=== PATIENT | male | born 1930 | race Caucasian/White ===

== ENCOUNTER 2016-09-17 23:03 | Observation (INO) | payer MEDICARE, BC ==
[~2016-09-17] VITALS: Ht 182.9 cm; Wt 85.0 kg
[~2016-09-17 23:03] MED LIST: AZOP1SUS EACH EYE; FISHCAP4 PO; LIPI20TA PO; MACR100C2 PO; NITR0.4S SL; OCUVTAB PO; SUCR1TAB PO
[2016-09-17 23:15] VITALS: BP 114/61; PULSE 79; RESP 16; TEMP 99.3; O2SAT 93
--- NOTE | 2016-09-17 23:38 | PD ---
HPI Chief Complaint: General Weakness Time Seen by Provider: 23:08 Travel History International Travel<30 days: No Contact w/Intl Traveler<30days: No Traveled to known affect area: No History of Present Illness HPI The patient is an 86 year old female who presents to the [facility] emergency department with a history of beginning to not feel well yesterday. The patient reports that he developed a productive cough that is gotten worse today, generalized weakness and fatigue. The patient reports that he just returned from a cruise. The cruise went to [place], however he never got off of the boat. The patient reports that he's had a diminished appetite today. He denies any vomiting or diarrhea. He denies having any chest pain, chest pressure, shortness of breath. The patient was attempting to get up to go to the bathroom when he fell because of weakness. The patient denies injuring himself. His had difficulty getting him up off of the ground, therefore she called ambulance services. The patient denies having any extremity pain associated with the fall. He denies hitting his head or losing consciousness. He denies having any neck pain or paresthesias. He denies having any new weakness of his extremities. The patient reports that he has a history of a neurogenic bladder and his will catheter him 3 times per week. She reports that she last 3 Days Ago. His Reports That He Had a Fever with a MAXIMUM TEMPERATURE of 101 Prior to Arrival. His Reports That She Did Call His Primary Care Physician, Dr. Vega Today and Was Given a Prescription for Ciprofloxacin. He Has Taken 2 Doses Today. The patient denies having any recent neck pain, chest pain, shortness of breath, abdominal pain, vomiting, diarrhea, new urinary symptoms, or new neurologic symptoms. [facility] Past Medical History Narrative Medical The patient's past medical history significant for coronary artery disease status post stent placement, history of bradycardia, history of glaucoma, mild obstructive sleep apnea, history of a trigger finger, history of prostate cancer , history of cataracts. Hx Anticoagulant Therapy: Yes Arthritis: Yes Heart Rhythm Problems: Yes (BRADYCARDIA) Cancer: Yes (PROSTATE) Cardiac Catheterization: Yes Cardiovascular Problems: Yes High Cholesterol: Yes Chemotherapy: No Congestive Heart Failure: No Coronary Artery Disease: Yes Diabetes: No Diminished Hearing: No Endocrine: No Gastrointestinal Disorders: No Glaucoma: Yes (BILATERAL) Hepatitis: No Hiatal Hernia: No Heparin Induced Thrombocytopen: No Hypertension: Yes Immune Disorder: No Implanted Vascular Access Dvce: Yes Medical other: Yes (ELEVATED CHOLESTEROL,ARTHRITIS) Neurologic: No Psychiatric: No Reproductive: No Respiratory: No Immunizations Current: Yes Myocardial Infarction: No Radiation Therapy: No Thyroid Disease: No Tetanus Vaccination: Unknown Influenza Vaccination: Yes Past Surgical History Narrative Surgical The patient's past surgical history is significant for prostate cryosurgery, right knee arthroscopy. Body Medical Devices: CARDIAC STENTS Coronary Artery Bypass Graft: No Coronary Stent: Yes (X 1) Eye Surgery: Yes (BILATERAL CATERACT EXT WITH LENSES, LASER LEFT EYE) Genitourinary Surgery: Yes (CRYO SX PROSTATE, TURP) Pacemaker: No Other Surgery: Yes Family History Family Myocardial Infarction: No Social History Alcohol Use: Yes (BEER PER DAY ) Tobacco Use: No Substance Use: No Allergies-Medications (Allergen,Severity, Reaction): Coded Allergies: Penicillin (Verified Allergy, Severe, Hives, 09/17/16) Morphine (Verified Allergy, Unknown, hallucination , confusion , 09/17/16) Uncoded Allergies: POLEDOCANOL (Allergy, Severe, ANAPHYLAXIS, 07/13/16) Reported Meds & Prescriptions Reported Meds & Active Scripts Active Macrobid (Nitrofurantoin Monoh/Nitrofur Macro) 100 Mg Cap 100 Mg PO BID 7 Days Reported Ocuvite (Multiple Vitamins W/ Minerals) 1 Tab 1 Tab PO DAILY Fish Oil + D3 (Fish Oil-Cholecalciferol) 1,200-1,000 Mg-Unit Cap 1 Cap PO DAILY Nitrostat (Nitroglycerin) 0.4 Mg Subl 0.4 Mg SL PRN PRN 1 TAB SL EVERY 5 MINS X 3 PRN CHEST PAIN Lipitor 20 Mg Tab (Atorvastatin Calcium) 20 Mg Tab 20 Mg PO HS Azopt (Brinzolamide) 1 % Elke 1 Drop EACH EYE BID Carafate 1 Gm Ta1 Gm 1 Gm Tab 1 Gm PO TIDAC Review of Systems Except as stated in HPI: all other systems reviewed are Neg General / Constitutional: Positive: Fever, Chills Eyes: No: Visual changes HENT: Positive: Congestion, No: Headaches Cardiovascular: No: Chest Pain or Discomfort, Dyspnea on exertion Respiratory: Positive: Cough, No: Shortness of Breath, Wheezing Gastrointestinal: Positive: Loss of Appetite, No: Nausea, Vomiting, Diarrhea, Abdominal Pain, Changes in Bowel Habits, Indigestion Genitourinary: Positive: Frequency, No: Urgency, Dysuria, Flank Pain Musculoskeletal: No: Pain Skin: No Rash Neurologic: Positive: Weakness (generalized weakness), No: Focal Abnormalities , Change in Mentation, Slurred Speech, Sensory Disturbance Psychiatric: No: Depression Endocrine: No: Polydipsia Hematologic/Lymphatic: No: Easy Bruising Physical Exam Narrative General: The patient is a well-developed well-nourished male in no acute distress.. Head and Neck exam: Head is normocephalic atraumatic. Eyes: Pupils are equal round and reactive to light. Nose: Midline septum with pink mucous membranes Mouth: Dentition unremarkable. Moist mucus membranes. Posterior oropharynx is not erythematous. No tonsillar hypertrophy. Uvula midline. Airway patent. Neck: No palpable lymphadenopathy. No nuchal rigidity. No thyromegaly. Cardiovascular: Regular rate and rhythm without murmurs, gallops, or rubs. Lungs: Clear to auscultation bilaterally. No wheezes, rhonchi, or rales. Abdomen: Soft, without tenderness to palpation in all 4 quadrants of the abdomen. No guarding, rebound, or rigidity. Normal bowel sounds are audible. Extremities: No clubbing, cyanosis, or edema. 2+ pulses in all 4 extremities. No calf tenderness on palpation. Back: No spinous process tenderness to palpation. No costovertebral angle tenderness to palpation. Neurologic Exam: Cranial nerves 2-12 were intact on exam. Strength is 5/5 in all 4 extremities. No sensory deficits noted. Skin Exam: No rash noted. Intact skin that is warm and dry. Data Data Last Documented VS Vital Signs Date Time Temp Pulse Resp B/P Pulse Ox O2 Delivery O2 Flow Rate FiO2 09/18/16 01:33 65 18 135/60 97 Nasal Cannula 2 09/17/16 23:15 99.3 Orders Electrocardiogram (09/17/16 23:27) Complete Blood Count With Diff (09/17/16 23:27) Comprehensive Metabolic Panel (09/17/16 23:27) Creatine Kinase (Cpk) (09/17/16 23:27) Ckmb (Isoenzyme) Profile (09/17/16 23:27) Troponin I (09/17/16 23:27) B-Type Natriuretic Peptide (09/17/16 23:27) Prothrombin Time / Inr (Pt) (09/17/16 23:27) Act Partial Throm Time (Ptt) (09/17/16 23:27) Blood Culture (09/17/16 23:27) Lipase (09/17/16 23:27) Urinalysis - C+S If Indicated (09/17/16 23:27) Magnesium (Mg) (09/17/16 23:27) Chest, Single Ap (09/17/16 23:27) Ct Brain W/O Iv Contrast(Rout) (09/17/16 23:27) Iv Access Insert/Monitor (09/17/16 23:27) Ecg Monitoring (09/17/16 23:27) Oximetry (09/17/16 23:27) Lactic Acid Sepsis Protocol (09/17/16 23:32) Sodium Chlorid 0.9% 500 Ml Inj (Ns 500 M (09/17/16 23:45) Urinary Catheter Insert/Apply (09/17/16 23:38) Admit Order (Ed Use Only) (09/18/16 02:08) Labs Laboratory Tests Test 09/18/16 00:05 White Blood Count 3.5 TH/MM3 Red Blood Count 3.60 MIL/MM3 Hemoglobin 11.9 GM/DL Hematocrit 34.9 % Mean Corpuscular Volume 96.8 FL Mean Corpuscular Hemoglobin 33.1 PG Mean Corpuscular Hemoglobin 34.2 % Concent Red Cell Distribution Width 13.5 % Platelet Count 135 TH/MM3 Mean Platelet Volume 7.8 FL Neutrophils (%) (Auto) 66.5 % Lymphocytes (%) (Auto) 18.7 % Monocytes (%) (Auto) 13.9 % Eosinophils (%) (Auto) 0.4 % Basophils (%) (Auto) 0.5 % Neutrophils # (Auto) 2.3 TH/MM3 Lymphocytes # (Auto) 0.6 TH/MM3 Monocytes # (Auto) 0.5 TH/MM3 Eosinophils # (Auto) 0.0 TH/MM3 Basophils # (Auto) 0.0 TH/MM3 CBC Comment DIFF FINAL Differential Comment Prothrombin Time 11.5 SEC Prothromb Time International 1.0 RATIO Ratio Activated Partial 30.3 SEC Thromboplast Time Urine Color YELLOW Urine Turbidity CLEAR Urine pH 5.5 Urine Specific [place] 1.013 Urine Protein NEG mg/dL Urine Glucose (UA) NEG mg/dL Urine Ketones NEG mg/dL Urine Occult Blood NEG Urine Nitrite NEG Urine Bilirubin NEG Urine Urobilinogen LESS THAN 2.0 MG/DL Urine Leukocyte Esterase SMALL Urine RBC 1 /hpf Urine WBC 8 /hpf Urine Squamous Epithelial <1 /hpf Cells Urine Bacteria RARE /hpf Microscopic Urinalysis Comment CULT NOT INDICATED Sodium Level 137 MEQ/L Potassium Level 3.7 MEQ/L Chloride Level 103 MEQ/L Carbon Dioxide Level 24.7 MEQ/L Anion Gap 9 MEQ/L Blood Urea Nitrogen 15 MG/DL Creatinine 1.16 MG/DL Estimat Glomerular Filtration 60 ML/MIN Rate Random Glucose 88 MG/DL Lactic Acid Level 0.7 mmol/L Calcium Level 8.3 MG/DL Magnesium Level 2.0 MG/DL Total Bilirubin 0.5 MG/DL Aspartate Amino Transf 12 U/L (AST/SGOT) Alanine Aminotransferase 18 U/L (ALT/SGPT) Alkaline Phosphatase 90 U/L Total Creatine Kinase 70 U/L Troponin I LESS THAN 0.02 NG/ML B-Type Natriuretic Peptide 68 PG/ML Total Protein 7.2 GM/DL Albumin 3.3 GM/DL Lipase 177 U/L [facility] Medical Decision Making Medical Screen Exam Complete: Yes Emergency Medical Condition: Yes Medical Record Reviewed: Yes Interpretation(s) Last Impressions Head CT [id number]/17/[id number] Signed Impressions: Service Date/Time: Saturday, September 17, 2016 23:39 - CONCLUSION: 1. No acute intracranial abnormality. 2. Mild chronic white matter changes. 3. Mild sinus disease. Luis Ley MD Chest X-Ray [id number]/17/[id number] Signed Impressions: Service Date/Time: Sunday, September 18, 2016 00:26 - CONCLUSION: No evidence of acute cardiopulmonary disease. Luis Ley MD Differential Diagnosis Bronchitis, versus sepsis, versus viral syndrome, versus pneumonia, versus urinary tract infection. Narrative Course During the course of the patients emergency department visit, the patients history, examination, and differential diagnosis were reviewed with the patient. The patient had IV access obtained and blood work sent for analysis. The patient was placed on a supervisor green end department with oximetry and blood pressure monitoring. An EKG was done on arrival. The patient's EKG shows a sinus rhythm with sinus arrhythmia, first-degree AV block noted. No acute ST segment elevation is noted. T waves are inverted in V1. The patient was provided normal saline a 500 mL bolus 1. Rocephin 1 g IV was given times one after pyuria was noted. The patients laboratory studies were reviewed and remarkable for a white count of 3.5, hemoglobin 11.9, platelets 135 with 13.9 monocytes, suggesting a viral syndrome which could be the cause of the patient's generalized weakness and recent cough, CMP is remarkable for a GFR 60, calcium 8.3, AST 12, cardiac enzymes are negative, BNP 68, albumin 3.3, lactic acid 0.7, PT 11.5, PTT 30.3, urinalysis shows small leukocyte esterase 8 wbc's rare bacteria, this a catheterized specimen, therefore the patient was treated with antibiotic. Radiology studies were reviewed and remarkable for a chest x-ray that showed no acute cardiopulmonary abnormality, CT scan of the brain shows no acute intracranial abnormality, mild chronic white matter changes, mild sinus disease. Given the patient's generalized weakness associated with an upper respiratory infection and urinary tract infection, the patient will be admitted for observation. The patients results were discussed with the patient, including the plan of care. I explained that further testing and/ or monitoring is indicated based on the patients history, examination, and/ or laboratory findings. Therefore, I recommended admission for additional evaluation. The patient expressed understanding and was agreeable with this plan. The patient was admitted to the hospital in stable condition and sent to a bed under the care of the [facility]ist service. Physician Communication Physician Communication The patient's case was discussed with Dr. Horton who did agree to admit the patient for further evaluation and treatment at this time. Diagnosis Primary Impression: Generalized weakness Additional Impressions: Urinary tract infection Qualified Code: T83.511A - Urinary tract infection associated with catheterization of urinary tract, unspecified indwelling urinary catheter type, initial encounter Bronchitis Admitting Information Admitting Physician Requests: Observation Mary Kay Choi MD Sep 17, 2016 23:38
[2016-09-17] MEDS ORDERED: SODIUM CHLORID 0.9% 500 ML INJ 500 ML IV ONE (23:45)
--- NOTE | 2016-09-17 23:53 | RADRPT ---
EXAM DATE/TIME: 09/17/2016 23:39 [facility] COMPARISON: No previous studies available for comparison. INDICATIONS : Weakness with altered mental status. RADIATION DOSE: 40.77 CTDIvol (mGy) MEDICAL HISTORY : Cardiovascular disease. Hypertension. Carcinoma, prostate. SURGICAL HISTORY : None. ENCOUNTER: Initial ACUITY: 1 day PAIN SCALE: 0/10 LOCATION: cranial TECHNIQUE: Multiple contiguous axial images were obtained of the head. Using automated exposure control and adj ustment of the mA and/or kV according to patient size, radiation dose was kept as low as reasonably a chievable to obtain optimal diagnostic quality images. FINDINGS: CEREBRUM: The ventricles are normal for age. No evidence of midline shift, mass lesion, hemorrhage or acute in farction. No extra-axial fluid collections are seen. There is mild diffuse low-attenuation in the pe riventricular white matter. POSTERIOR FOSSA: The cerebellum and brainstem are intact. The 4th ventricle is midline. The cerebellopontine angle i s unremarkable. EXTRACRANIAL: There is mild mucoperiosteal thickening of the visualized ethmoid air cells. SKULL: The calvaria is intact. No evidence of skull fracture. CONCLUSION: 1. No acute intracranial abnormality. 2. Mild chronic white matter changes. 3. Mild sinus disease. Luis Ley MD on September 17, 2016 at 23:51 Board Certified Radiologist. This report was verified electronically.
[2016-09-18] VITALS (12 sets, daily range): BP systolic 105–156; BP diastolic 56–75; PULSE 55–70; RESP 16–24; TEMP 98–101.6; O2SAT 96–98
[2016-09-18 00:26] LABS: AUTOMATED NEUTROPHIL # 2.3 TH/MM3 (1.8-7.7); BASOPHIL % 0.5 % (0.0-2.0); EOSINOPHIL % 0.4 % (0.0-4.0); HEMATOCRIT 34.9 % (39.0-51.0); HEMO FLAGS DIFF FINAL; LYMPH % 18.7 % (9.0-44.0); LYMPHOCYTE # 0.6 TH/MM3 (1.0-4.8); MEAN CELL VOLUME 96.8 FL (80.0-100.0); MEAN CORPUSCULAR HEMOGLOBIN 33.1 PG (27.0-34.0); MEAN CORPUSCULAR HGB CONC 34.2 % (32.0-36.0); MONO % 13.9 % (0.0-8.0); NEUT % 66.5 % (16.0-70.0); PLATELET COUNT 135 TH/MM3 (150-450); RED CELL DISTRIBUTION WIDTH 13.5 % (11.6-17.2); WHITE BLOOD COUNT 3.5 TH/MM3 (4.0-11.0)
[2016-09-18 00:28] LABS: BACTERIA, URINE RARE /hpf; BLOOD, URINE NEG (NEG); GLUCOSE,URINE NEG (NEG); KETONE, URINE NEG (NEG); NITRITE,URINE NEG (NEG); PH, URINE 5.5 (5.0-8.5); SQUAMOUS EPITHELIAL CELL URINE <1 /hpf (0-5); URINE COLOR YELLOW (YELLW/STRAW)
[2016-09-18 00:31] LABS: COMMENT (UR) CULT NOT INDICATED; CULTURE IF INDICATED CULT NOT INDICATED
[2016-09-18 00:34] LABS: ANION GAP 9 MEQ/L (5-15); AST (GOT) 12 U/L (15-37); BICARBONATE 24.7 MEQ/L (21.0-32.0); BLOOD UREA NITROGEN 15 MG/DL (7-18); CHLORIDE 103 MEQ/L (98-107); GLOMERULAR FILTRATION RATE 60 ML/MIN (>89); POTASSIUM 3.7 MEQ/L (3.5-5.1); SODIUM (NA) 137 MEQ/L (136-145)
[2016-09-18 00:38] LABS: APTT (PATIENT) 30.3 SEC (24.3-30.1); PROTHROMBIN TIME - PATIENT 11.5 SEC (9.8-11.6)
[2016-09-18 00:39] LABS: ALKALINE PHOSPHATASE 90 U/L (45-117); ALT (GPT) 18 U/L (12-78); TOTAL BILIRUBIN ADULT 0.5 MG/DL (0.2-1.0)
[2016-09-18 01:00] LABS: CREATINE KINASE 70 U/L (39-308)
--- NOTE | 2016-09-18 01:21 | RADRPT ---
EXAM DATE/TIME: 09/18/2016 00:26 [facility] COMPARISON: CHEST SINGLE AP, June 27, 2015, 10:15. INDICATIONS : Chest pain. MEDICAL HISTORY : Cardiovascular disease. SURGICAL HISTORY : Coronary artery stents. ENCOUNTER: Initial ACUITY: 1 day PAIN SCORE: 6/10 LOCATION: Bilateral chest FINDINGS: A single view of the chest demonstrates the lungs to be symmetrically aerated without evidence of mas s, infiltrate or effusion. The cardiomediastinal contours are unremarkable. Osseous structures are intact. CONCLUSION: No evidence of acute cardiopulmonary disease. Luis Lye MD on September 18, 2016 at 1:18 Board Certified Radiologist. This report was verified electronically.
[2016-09-18] MEDS ORDERED: cefTRIAXone INJ 1,000 MG in SODIUM CHLORIDE 0.9% INJ 100 ML IV ONE (02:30)
[2016-09-18] MEDS ORDERED: NALOXONE HCL 0.4 MG/ML AMP IV PRN (02:45)
[2016-09-18] MEDS ORDERED: SODIUM CHLORIDE 0.9% FLUSH 5 ML FLUSH FLUSH PRN (02:45)
[2016-09-18] MEDS ORDERED: CIPR500T2 PO (04:38)
--- NOTE | 2016-09-18 05:33 | HHI.HP ---
[facility] Deb Vega MD Admission Diagnosis Generalized weakness, UTI Diagnoses: Chief Complaint: UTI, weakness Travel History International Travel<30 Days: No Contact w/Intl Traveler <30 Da: No Traveled to Known Affected Are: No Sepsis Criteria SIRS Criteria (2 or more): Temp > 100.9 or < 96.8, WBC > 07325, < 4000 or > 10 % bands History of Present Illness History taken from patient and ED physician 86-year-old male with a history of neurogenic bladder's, CAD, bradycardia, prostate cancer presented to the ED with complaints of fever 101 at home, cough and weakness. Patient states he just came back from a cruise on Friday and began to feel weak and he states he has a cough with sputum production and congestion. His significant other is also not feeling well. He denies any chest pain, sob, nausea, vomiting or diarrhea. He is complaining of urinary frequency, and dysuria. Patient states he called his primary care physician and was started on Cipro. Patient states he's completed 2 days worth of antibiotics. Today he feels much weaker and developed fevers and chills at home. Review of Systems Constitutional: COMPLAINS OF: Fever, Chills Respiratory: COMPLAINS OF: Cough, Sputum production, DENIES: Shortness of breath Cardiovascular: DENIES: Chest pain, Dyspnea on Exertion, Lower Extremity Edema Gastrointestinal: DENIES: Constipation, Diarrhea, Nausea, Vomiting Genitourinary: COMPLAINS OF: Urinary frequency, Dysuria, DENIES: Hematuria Musculoskeletal: DENIES: Joint pain, Back pain, Neck pain Integumentary: DENIES: Rash Hematologic/lymphatic: DENIES: Lymphadenopathy Immunologic/allergic: DENIES: Urticaria Neurologic: COMPLAINS OF: Localized weakness, DENIES: Headache Past Family Social History Past Medical History Neurogenic bladder CAD Bradycardia Glaucoma Prostate cancer Past Surgical History stent placement 2008 Reported Medications Reported Meds & Active Scripts Active Macrobid (Nitrofurantoin Monoh/Nitrofur Macro) 100 Mg Cap 100 Mg PO BID 7 Days Reported Ciprofloxacin (Ciprofloxacin HCl) 500 Mg Tab 500 Mg PO BID Ocuvite (Multiple Vitamins W/ Minerals) 1 Tab 1 Tab PO DAILY Fish Oil + D3 (Fish Oil-Cholecalciferol) 1,200-1,000 Mg-Unit Cap 1 Cap PO DAILY Allergies: Coded Allergies: Penicillin (Verified Allergy, Severe, Hives, 09/17/16) Morphine (Verified Allergy, Unknown, hallucination , confusion , 09/17/16) Uncoded Allergies: POLEDOCANOL (Allergy, Severe, ANAPHYLAXIS, 07/13/16) Active Ordered Medications Current Medications Medications (Trade) Dose Ordered Sig/Aparna Route Start Time Stop Time Status Last Admin (NS Flush) 2 ml UNSCH PRN FLUSH 09/18/16 02:45 (NS Flush) 2 ml BID FLUSH 09/18/16 09:00 (Lovenox Inj) 40 mg Q24H SQ 09/18/16 09:00 Naloxone HCl 0.4 mg 0.4 mg UNSCH PRN IV 09/18/16 02:45 (Levaquin 750 Mg Premix Inj) 150 ml @ 100 mls/hr Q24H IV 09/18/16 09:00 Family History Patient denies any family history Social History Tobacco use: denies Alcohol use: a few beers a day Illicit drug use: denies Patient still drives. Physical Exam Vital Signs Vital Signs Date Time Temp Pulse Resp B/P Pulse Ox O2 Delivery O2 Flow Rate FiO2 09/18/16 01:33 65 18 135/60 97 Nasal Cannula 2 09/18/16 00:12 16 97 Nasal Cannula 2 09/17/16 23:17 79 16 96 Nasal Cannula 2 09/17/16 23:15 99.3 79 16 114/61 93 Physical Exam GENERAL: This is a well-nourished, well-developed patient, in no apparent distress. SKIN: No rashes, ecchymoses or lesions. Cool and dry. HEAD: Atraumatic. Normocephalic. EYES: Pupils equal round and reactive. ENT: Nose without bleeding, purulent drainage or septal hematoma. Airway patent. NECK: Trachea midline. No JVD . CARDIOVASCULAR: Regular rate and rhythm without murmurs, gallops, or rubs. RESPIRATORY: Rhonchi at bilateral bases. No wheezes, rales, or rhonchi. GASTROINTESTINAL: Abdomen soft, non-tender, nondistended. No hepato-splenomegaly , or palpable masses. No guarding. MUSCULOSKELETAL: Extremities without clubbing, cyanosis, or edema. No joint tenderness, effusion, or edema noted. No calf tenderness. NEUROLOGICAL: Awake and alert. Motor and sensory grossly within normal limits. Normal speech. Laboratory Laboratory Tests Test 09/18/16 00:05 White Blood Count 3.5 Red Blood Count 3.60 Hemoglobin 11.9 Hematocrit 34.9 Mean Corpuscular Volume 96.8 Mean Corpuscular Hemoglobin 33.1 Mean Corpuscular Hemoglobin 34.2 Concent Red Cell Distribution Width 13.5 Platelet Count 135 Mean Platelet Volume 7.8 Neutrophils (%) (Auto) 66.5 Lymphocytes (%) (Auto) 18.7 Monocytes (%) (Auto) 13.9 Eosinophils (%) (Auto) 0.4 Basophils (%) (Auto) 0.5 Neutrophils # (Auto) 2.3 Lymphocytes # (Auto) 0.6 Monocytes # (Auto) 0.5 Eosinophils # (Auto) 0.0 Basophils # (Auto) 0.0 CBC Comment DIFF FINAL Differential Comment Prothrombin Time 11.5 Prothromb Time International 1.0 Ratio Activated Partial 30.3 Thromboplast Time Urine Color YELLOW Urine Turbidity CLEAR Urine pH 5.5 Urine Specific [place] 1.013 Urine Protein NEG Urine Glucose (UA) NEG Urine Ketones NEG Urine Occult Blood NEG Urine Nitrite NEG Urine Bilirubin NEG Urine Urobilinogen LESS THAN 2.0 Urine Leukocyte Esterase SMALL Urine RBC 1 Urine WBC 8 Urine Squamous Epithelial <1 Cells Urine Bacteria RARE Microscopic Urinalysis Comment CULT NOT INDICATED Sodium Level 137 Potassium Level 3.7 Chloride Level 103 Carbon Dioxide Level 24.7 Anion Gap 9 Blood Urea Nitrogen 15 Creatinine 1.16 Estimat Glomerular Filtration 60 Rate Random Glucose 88 Lactic Acid Level 0.7 Calcium Level 8.3 Magnesium Level 2.0 Total Bilirubin 0.5 Aspartate Amino Transf 12 (AST/SGOT) Alanine Aminotransferase 18 (ALT/SGPT) Alkaline Phosphatase 90 Total Creatine Kinase 70 Troponin I LESS THAN 0.02 B-Type Natriuretic Peptide 68 Total Protein 7.2 Albumin 3.3 Lipase 177 Date/Time Procedure Status Source Growth 09/18/16 00:05 Aerobic Blood Culture Received Blood Peripheral Pending 09/18/16 00:05 Anaerobic Blood Culture Received Blood Peripheral Pending Result Diagram: 09/18/16 0005 09/18/16 0005 Imaging Last Impressions Head CT 09/17/16 [id number] Signed Impressions: Service Date/Time: Saturday, September 17, 2016 23:39 - CONCLUSION: 1. No acute intracranial abnormality. 2. Mild chronic white matter changes. 3. Mild sinus disease. Luis Ley MD Chest X-Ray 09/17/160 Signed Impressions: Service Date/Time: Sunday, September 18, 2016 00:26 - CONCLUSION: No evidence of acute cardiopulmonary disease. Luis Ley MD Assessment and Plan Problem List: (1) Urinary tract infection ICD Code: N39.0 Status: Acute (2) SIRS (systemic inflammatory response syndrome) ICD Code: R65.10 Status: Acute (3) Generalized weakness ICD Code: R53.1 Status: Acute Assessment and Plan 86-year-old male with a history of neurogenic bladder, CAD, bradycardia prostate cancer presented with: UTI, treated outpatient with 2 days Cipro Labs: UA shows small leuko-esterase, no culture indicated; likely this is due to it being partially treated with cipro as outpatient -Levofloxacin IV Sirs, probable early pneumonia- with symptoms of cough, congestion, subjective fevers Labs: WBC 3.5, temp 101 Images: Chest xray unremarkable -Trend CBC -Continue antibiotics as above for lung coverage -Blood cultures pending Generalized weakness, likely due to UTI Images: Head CT unremarkable -Up ad emily. -PT eval DVT prophylaxis: SCDs Written by Yanira MANCILLA, acting as scribe for Dr. Horton on 09/18/16 at 0544 . The documentation accurately reflects the work performed [id number] and decisions made by me and the physician Dr Horton on 09/18/16. The documentation accurately reflects the work performed [id number] by me on at 0544 Discussed Condition With Patient and RN Problem Qualifiers (1) Urinary tract infection: Qualified Code: T83.511A - Urinary tract infection associated with catheterization of urinary tract, unspecified indwelling urinary catheter type, initial encounter Yanira Menchaca Sep 18, 2016 05:33 Denny Horton MD Sep 18, 2016 08:40
[2016-09-18] MEDS: SODIUM CHLORIDE 0.9% FLUSH 5 ML FLUSH FLUSH SCH ×2 (09:29→22:12)
[2016-09-18] MEDS: LEVOFLOXACIN 750 MG PREMIX INJ 150 ML IV SCH (09:29)
[2016-09-18] MEDS: ENOXAPARIN SODIUM 40 MG/0.4 ML SYRINGE SQ SCH (09:30)
[2016-09-18] MEDS ORDERED: IBUPROFEN 200 MG TAB PO PRN (11:15)
[2016-09-18] MEDS: ACETAMINOPHEN 325 MG TAB PO PRN ×2 (11:26→22:17)
[2016-09-18] MEDS: OSELTAMIVIR PHOSPHATE 75 MG CAP PO SCH ×2 (12:26→22:11)
[2016-09-18] MEDS ORDERED: LUMI0.01 EACH EYE (12:29)
[2016-09-18] MEDS ORDERED: AZOP1SUS EACH EYE (12:29)
--- NOTE | 2016-09-18 15:52 | EKG ---
Date Performed: 09/18/2016 Time Performed: 01:30:58 PTAGE: 86 years EKG: Sinus rhythm WITH SINUS ARRHYTHMIA WITH FIRST DEGREE AV BLOCK BORDERLINE LEFT AXIS DEVIATION Compared to prior tr acing no significant change ABNORMAL ECG PREVIOUS TRACING : 06/28/2015 05.50 DOCTOR: Deevn Santamaria Interpretating Date/Time 09/18/2016 15:47:29
[2016-09-19 00:57] VITALS: BP 130/65; PULSE 76; RESP 20; TEMP 99; O2SAT 95
[2016-09-19 04:42] VITALS: BP 141/68; PULSE 60; RESP 20; TEMP 97.6; O2SAT 95
[2016-09-19 08:00] VITALS: BP 121/65; PULSE 52; PULSE 54; RESP 20; TEMP 98.3; O2SAT 98
[2016-09-19] MEDS: OSELTAMIVIR PHOSPHATE 75 MG CAP PO SCH (08:41)
[2016-09-19] MEDS: ENOXAPARIN SODIUM 40 MG/0.4 ML SYRINGE SQ SCH (08:42)
[2016-09-19] MEDS: LEVOFLOXACIN 750 MG PREMIX INJ 150 ML IV SCH (08:42)
[2016-09-19] MEDS: SODIUM CHLORIDE 0.9% FLUSH 5 ML FLUSH FLUSH SCH (08:42)
[2016-09-19 09:11] LABS: BASOPHIL % 0.5 % (0.0-2.0); EOSINOPHIL % 0.5 % (0.0-4.0); HEMATOCRIT 36.4 % (39.0-51.0); HEMO FLAGS DIFF FINAL; LYMPH % 27.1 % (9.0-44.0); MEAN CORPUSCULAR HEMOGLOBIN 33.5 PG (27.0-34.0); MEAN CORPUSCULAR HGB CONC 34.2 % (32.0-36.0); MONO % 15.4 % (0.0-8.0); NEUT % 56.5 % (16.0-70.0); PLATELET COUNT 120 TH/MM3 (150-450); RED BLOOD COUNT 3.72 MIL/MM3 (4.50-5.90); RED CELL DISTRIBUTION WIDTH 13.7 % (11.6-17.2); WHITE BLOOD COUNT 3.6 TH/MM3 (4.0-11.0)
[2016-09-19 09:53] LABS: POTASSIUM 3.8 MEQ/L (3.5-5.1)
[2016-09-19] MEDS ORDERED: POLYETHYLENE GLYCOL 17 GM PKG PO SCH (11:45)
--- NOTE | 2016-09-19 11:46 | HHI.PR ---
Subjective Remarks Follow up for influenza and UTI. The patient reports just feeling generally weak however he has been able to ambulate his room without assistance. No fevers overnight. Denies any shortness of breath. Denies any dysuria but has chronic neurogenic bladder requiring catheterizations every 3 days at home. at bedside states the patient has been offered a bladder stimulator by the urologist however the patient refuses. The patient reports feeling constipated today, last BM early Friday morning. Objective Vitals Vital Signs Date Time Temp Pulse Resp B/P Pulse Ox O2 Delivery O2 Flow Rate FiO2 09/19/16 08:00 98.3 54 20 121/65 98 09/19/16 04:42 97.6 60 20 141/68 95 09/19/16 00:57 99.0 76 20 130/65 95 09/18/16 21:18 98.0 69 20 127/64 97 09/18/16 19:00 99.1 59 16 124/60 96 Room Air 09/18/16 18:30 60 22 144/67 96 Room Air 09/18/16 17:00 99.0 68 20 122/57 96 Room Air 09/18/16 14:30 66 21 105/56 96 Room Air 09/18/16 12:27 99.6 70 19 127/60 96 Room Air I/O 09/18/16 09/18/16 09/18/16 09/19/16 09/19/16 09/19/16 07:00 15:00 23:00 07:00 15:00 23:00 Output Total 800 ml 700 ml 1200 ml Balance -800 ml -700 ml -1200 ml Output Urine Total 800 ml 700 ml 1200 ml # Voids 0 Result Diagram: 09/19/16 0814 09/19/16 0814 Imaging Last Impressions Head CT 09/17/162326 Signed Impressions: Service Date/Time: Saturday, September 17, 2016 23:39 - CONCLUSION: 1. No acute intracranial abnormality. 2. Mild chronic white matter changes. 3. Mild sinus disease. Luis Ley MD Chest X-Ray 09/17/162326 Signed Impressions: Service Date/Time: Sunday, September 18, 2016 00:26 - CONCLUSION: No evidence of acute cardiopulmonary disease. Luis Ley MD Objective Remarks GENERAL: Well-nourished, well-developed elderly male patient in NAD. Standing up at bedside. SKIN: Warm and dry. No rash. HEAD: Normocephalic. Atraumatic. EYES: Pupils equal and round. No scleral icterus. No injection or drainage. ENT: No nasal bleeding or discharge. Mucous membranes pink and moist. NECK: Supple. Trachea midline. CARDIOVASCULAR: Regular rate and rhythm. S1, S2 noted. No murmur appreciated. RESPIRATORY: No accessory muscle use. Clear to auscultation. Breath sounds equal bilaterally. GASTROINTESTINAL: Abdomen soft, non-tender, nondistended. Normoactive bowel sounds x4. MUSCULOSKELETAL: No obvious deformities. Extremities without clubbing, cyanosis , or edema. NEUROLOGICAL: Awake and alert. No obvious cranial nerve deficits. Motor grossly within normal limits. 5/5 muscle strength in bilateral upper and lower extremities. Normal speech. PSYCHIATRIC: Appropriate mood and affect; insight and judgment normal. Medications and IVs Current Medications Medications (Trade) Dose Ordered Sig/Aparna Route Start Time Stop Time Status Last Admin (NS Flush) 2 ml UNSCH PRN FLUSH 09/18/16 02:45 09/18/16 11:12 (NS Flush) 2 ml BID FLUSH 09/18/16 09:00 09/19/16 08:42 (Lovenox Inj) 40 mg Q24H SQ 09/18/16 09:00 09/19/16 08:42 Naloxone HCl 0.4 mg 0.4 mg UNSCH PRN IV 09/18/16 02:45 (Levaquin 750 Mg Premix Inj) 150 ml @ 100 mls/hr Q24H IV 09/18/16 09:00 09/19/16 08:42 (Tamiflu) 75 mg BID PO 09/18/16 12:00 09/19/16 08:41 (Tylenol) 650 mg Q4H PRN PO 09/18/16 11:15 09/18/16 22:17 (Advil) 200 mg Q4H PRN PO 09/18/16 11:15 (Miralax) 17 gm DAILY PO 09/19/16 11:45 09/19/16 12:03 Urinary Catheter: Yes Assessment to: Remove Vascular Central Line Catheter: No A/P Problem List: (1) Urinary tract infection ICD Code: N39.0 Status: Acute (2) SIRS (systemic inflammatory response syndrome) ICD Code: R65.10 Status: Acute (3) Generalized weakness ICD Code: R53.1 Status: Acute Assessment and Plan 86-year-old male with a history of neurogenic bladder, CAD, bradycardia prostate cancer presented with: Complicated UTI in a male with neurogenic bladder requiring self catheterization : treated outpatient with 2 days Cipro however symptoms worsening. UA shows small leuko-esterase, no culture indicated; likely this is due to it being partially treated with cipro as outpatient. Will complete 10 day course with po Levaquin. Influenza: influenza antigen positive for Flu A. Given gentle IVF hydration. Started on Tamiflu 75mg bid x5days. Sepsis: WBC 3.5K, Temp 101, secondary to infectious sources Influenza and Complicated UTI. On abx for UTI as above. Supportive treatment for flu. Blood cultures with NGTD. Urine legionella/pneumococcal antigen negative. CXR images reviewed, unremarkable. CBC stable, patient will need to f/up with hematology as outpatient if leukopenia persists. Generalized weakness, likely due to UTI/influeza: Head CT images reviewed, unremarkable. PT recommends [facility], case management consulted for arrangements. Constipation: pt reporting constipation with no BM x3 days. Given Miralax with good relief, had 2 BMs afterwards. No abdominal pain. DVT prophylaxis: SCDs I spent 35 minutes [id number] with the patient or on the mckeon discussing the patient's disposition, prognosis, and plan of care with his caregivers. Over half the time spent was devoted to counseling the patient regarding coordination of care with caregivers and case management Written by Yoko Prado, acting as scribe for Dr. Cole on 09/19/16 at 11: 46. Discharge Planning Discharge patient to home with [facility] PT/Nursing Condition on discharge: Improved Heart Healthy Diet as tolerated Ad Mimi activity Rx written: Levaquin 750mg qd #8 (10days total treatment), Tamiflu 75mg po bid # 7 (5days total treatment) Follow-up with primary care physician Dr. Vega in 1 week Attending Statement The documentation accurately reflects the work performed [id number] by me on Dr. Cole on 09/19/16 at 11:46. Problem Qualifiers (1) Urinary tract infection: Qualified Code: T83.511A - Urinary tract infection associated with catheterization of urinary tract, unspecified indwelling urinary catheter type, initial encounter Yoko Prado PA-C Sep 19, 2016 11:46 Brad Pugh MD Sep 24, 2016 13:12
--- NOTE | 2016-09-19 11:48 | HHI.FF ---
Face to Face Verification Diagnosis: (1) Influenza A (2) SIRS (systemic inflammatory response syndrome) (3) Generalized weakness (4) Urinary tract infection (5) CAD S/P percutaneous coronary angioplasty (6) Bradycardia Physical Therapy Order: Evaluate and Treat, Improve ambulation, Strength and gait training Home Health Nursing Order: Medical education Signs/symptoms of disease process Nursing assessment with vital signs I have seen patient Jayce Reyna on 09/19/16. My clinical findings support the need for the requested home health care services because: Deconditioned w/ increased weakness Limited ability to care for self Infection w/ risk of complications I certify that my clinical findings support that this patient is homebound because: Unsteady gait/balance Unsafe to leave home unassisted Unable to use public transportation Yoko Prado PA-C Sep 19, 2016 11:48
[2016-09-19 12:00] VITALS: BP 129/69; PULSE 59; RESP 18; TEMP 96.5; O2SAT 99
[2016-09-19] MEDS ORDERED: OSEL75 PO (13:23)
[2016-09-19] MEDS ORDERED: LEVA750T PO (14:50)
[2016-09-19 16:00] VITALS: BP 143/73; PULSE 53; RESP 18; TEMP 97.3; O2SAT 98
== END 2016-09-19 18:50 | disposition home or self-care (01) ==
LOC: NEPC 23:03 → NEDA 09-18 02:09 → NEDH 09-18 06:12 → NEDA 09-18 06:12 → NEPHCDU 09-18 21:02
PROVIDERS: ADMIT Hospitalist; ATTEND Hospitalist
DX: J09.X2 Influenza due to identified novel influenza A virus with other respiratory manifestations (principal); R65.10 Systemic inflammatory response syndrome (SIRS) of non-infectious origin without acute organ dysfunction; R53.1 Weakness; N39.0 Urinary tract infection, site not specified; I25.10 Atherosclerotic heart disease of native coronary artery without angina pectoris; R00.1 Bradycardia, unspecified; J40 Bronchitis, not specified as acute or chronic; E78.00 Pure hypercholesterolemia, unspecified; I10 Essential (primary) hypertension; G47.33 Obstructive sleep apnea (adult) (pediatric); M19.90 Unspecified osteoarthritis, unspecified site; N31.9 Neuromuscular dysfunction of bladder, unspecified; R63.0 Anorexia; Z85.46 Personal history of malignant neoplasm of prostate; Z95.5 Presence of coronary angioplasty implant and graft; Z79.01 Long term (current) use of anticoagulants
CPT/HCPCS: 51702; 70450; 71010; 80048; 80053; 81001; 82550; 83605; 83690; 83735; 83880; 84484; 85025; 85610; 85730; 87040; 87449; 87804; 93005; 96360; 97163; 99285; G0378; G8987; G8988; J0696; J1650; J1956; J7040

== ENCOUNTER → 2017-08-25 | Outpatient (CLI) | payer MEDICARE, BC ==
[~2017-08-25] MED LIST changes: +ASPI81CH6 PO; +ATOR20TA15 PO; +GALA4TAB PO; +LEVA750T PO; -LIPI20TA PO; +LUMI0.01 EACH EYE; -MACR100C2 PO; -NITR0.4S SL; +OSEL75 PO; +SUCR1S PO; -SUCR1TAB PO; +TAMS5CAP PO
[2017-08-25 09:38] LABS: AUTOMATED NEUTROPHIL # 3.4 TH/MM3 (1.8-7.7); BASOPHIL % 0.3 % (0.0-2.0); EOSINOPHIL % 0.3 % (0.0-4.0); HEMATOCRIT 39.4 % (39.0-51.0); HEMOGLOBIN 13.1 GM/DL (13.0-17.0); LYMPH % 28.6 % (9.0-44.0); LYMPHOCYTE # 1.5 TH/MM3 (1.0-4.8); MEAN CELL VOLUME 99.5 FL (80.0-100.0); MEAN CORPUSCULAR HEMOGLOBIN 33.1 PG (27.0-34.0); MEAN CORPUSCULAR HGB CONC 33.3 % (32.0-36.0); MEAN PLATELET VOLUME 7.3 FL (7.0-11.0); MONO % 7.5 % (0.0-8.0); MONOCYTE # 0.4 TH/MM3 (0-0.9); NEUT % 63.3 % (16.0-70.0); PLATELET COUNT 210 TH/MM3 (150-450); RED BLOOD COUNT 3.97 MIL/MM3 (4.50-5.90); RED CELL DISTRIBUTION WIDTH 14.2 % (11.6-17.2); WHITE BLOOD COUNT 5.3 TH/MM3 (4.0-11.0)
[2017-08-25 09:42] LABS: BILIRUBIN, URINE NEG (NEG); BLOOD, URINE NEG (NEG); GLUCOSE,URINE NEG (NEG); KETONE, URINE NEG (NEG); MUCUS URINE FEW /lpf (OCC); NITRITE,URINE NEG (NEG); PH, URINE 6.5 (5.0-8.5); URINE COLOR LIGHT-YELLOW (YELLW/STRAW); URINE LEUKOCYTE ESTERASE NEG (NEG)
[2017-08-25 09:51] LABS: PROTHROMBIN TIME - PATIENT 10.3 SEC (9.8-11.6)
--- NOTE | 2017-08-25 10:01 | RADRPT ---
EXAM DATE/TIME: 08/25/2017 09:41 [facility] COMPARISON: CHEST SINGLE AP, September 18, 2016, 0:26. INDICATIONS : Preop, Evaluate for communicable disease, pneumonia, pnuemothorax. Total Knee Surgery MEDICAL HISTORY : Cardiovascular disease. SURGICAL HISTORY : Coronary artery stent. ENCOUNTER: Initial ACUITY: 1 day PAIN SCORE: 0/10 LOCATION: Bilateral chest FINDINGS: No new focal pleural or parenchymal opacities. Cardiomediastinal contours are within normal limits. B yaritza thorax is intact. CONCLUSION: 1. No acute cardiopulmonary disease or significant interval change. Robert Bermudez MD on August 25, 2017 at 9:58 Board Certified Radiologist. This report was verified electronically.
[2017-08-25 10:05] LABS: BICARBONATE 28.7 MEQ/L (21.0-32.0); CALCIUM 8.9 MG/DL (8.5-10.1); CREATININE 0.96 MG/DL (0.60-1.30)
--- NOTE | 2017-08-25 18:48 | EKG ---
Date Performed: 08/25/2017 Time Performed: 09:16:44 PTAGE: 86 years EKG: Sinus bradycardia with PAC(s) with 1st degree A-V block. Compared to previous tracing, the patient is now bradycardic Abnormal ECG NO PREVIOUS TRACING DOCTOR: Pamela Marmolejo Interpretating Date/Time 08/25/2017 18:46:53
== END ==
LOC: CPRE 08:50
PROVIDERS: ATTEND Orthopaedic Surgery
DX: Z01.812 Encounter for preprocedural laboratory examination (principal); Z01.810 Encounter for preprocedural cardiovascular examination; M17.11 Unilateral primary osteoarthritis, right knee
CPT/HCPCS: 36415; 71046; 80048; 81001; 85025; 85610; 93005

== ENCOUNTER 2017-09-24 05:30 | Inpatient (IN) | payer MEDICARE, BC ==
--- NOTE | 2017-09-22 22:28 | MH ---
cc: NUBIA ANNE MD DATE OF ADMISSION: 09/24/2017 ADMITTING DIAGNOSIS: Osteoarthritis of the right knee, pain right knee, gait disturbance. HISTORY The patient is an 87-year-old white male who has had a rather lengthy history of pain involving his right knee extending back for at least six years. He had noted the gradual onset of soreness about his knee unrelated to any injury or unusual activity and at that time conformed to conservative management. He subsequently aggravated his knee symptoms in approximately 2012 but continued to conform to conservative modality until undergoing an orthopedic evaluation in September 2013. At that time he reported that he had actually undergone arthroscopic surgery of his right knee within the previous 15-20 years as had been completed in the [place] area. The patient had suggested his problems may have been related to a cartilage type injury but was unable to be more specific in this regard. He did benefit from the procedure that was completed at that time. When evaluated in 2013, his x-rays did reveal some narrowing throughout the medial compartment that was consistent with a degenerative change in a mild varus orientation. The patient elected to continue with conservative management and began taking ibuprofen on a daily basis as well as a trial course of Aspercreme. Elastic knee support was worn on a p.r.n. basis. The patient experienced some lingering soreness at that time and was given additional options which included therapy intervention. At that time he elected to continue with exercise activities under his own supervision. He returned to the office in March of this past year reporting that he was experiencing progressive pain about his right knee that was beginning to interfere with his daily routine especially as related to all weightbearing activities. He had been taking aspirin in the past for which he was advised to minimize the use of medication because of GI irritation. His more current x-ray studies did reveal progressive narrowing of the medial compartment that was consistent with a degenerative change and at that time the patient did receive an intra-articular steroid injection. When seen in follow-up disposition, he reported that the injection had not afforded him any appreciable relief of his pain and he was alternating between Tylenol and aspirin for pain management. Various treatment options were discussed at that time including the possibility of undergoing a repeat arthroscopic procedure versus total knee replacement. The pluses and minuses of each of these procedures was outlined. The patient considered his options in this regard but was continuing to note difficulty conforming to all activities of daily living. He was aware of limited endurance while trying to conform to a minimal degree of exercise activities and was unable to appreciate any relief from continued use of Tylenol and minimizing his use of aspirin. Given the progressive nature of his pain and his ongoing difficulties, he returned to the office in more recent follow-up indicating his desire to proceed with a more definitive course of treatment. At that time he felt that the more favorable course of management would come from total knee replacement for long-term benefit. In compliance with his wishes he has currently been scheduled for admission in order that the above be accomplished. Past medical history, hospitalizations and surgeries in addition to the arthroscopic surgery of his right knee as described have included laser surgery of his left eye for history of glaucoma, cryosurgery of the prostate, TURP, colonoscopy with polyp resection, dental extraction, cardiac stent insertion, bilateral and inguinal herniorrhaphies with mesh insertion, bilateral trigger finger release of the hands, and esophageal dilation. CURRENT MEDICATIONS 1. Atorvastatin 20 mg daily. 2. 81 milligram aspirin tablet daily. 3. Sucralfate p.r.n. 4. Aesop eye drops twice daily. 5. Lumigan eye drops daily. 6. Flomax daily. 7. Galantamine twice daily. 8. Fish oil daily. 9. Multivitamin tablet daily. 10. Ocuvite for eyes daily. ALLERGIES: PENICILLIN, HIVE-LIKE REACTION. MORPHINE. POLEDOCANOL, CAUSED HALLUCINATORY EFFECT. REVIEW OF SYSTEMS The patient does wear glasses. Denies headache, seizure or syncope. No sinus congestion or epistaxis. Diminished auditory acuity for which a hearing aid is utilized on the left side. He has dental implants. He has had dysphagia in the past. No cough, shortness of breath, upper respiratory infection, pneumonia, tuberculosis, no angina or heart disease. Appetite is good. Bowel movements are regular. No hepatitis, gallbladder disease or ulcers. No urinary tract infection or kidney stones. Positive history of prostate disease, status post TURP. 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 His remaining review of systems is unremarkable and noncontributory. FAMILY HISTORY: The patient has been for many years but he has had a significant other since 2002. He has two sons and two daughters all indicated to be in good health. Family history is positive for heart disease, hypertension, colon and prostate cancer. 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 He completed a high school education. He denies active use of tobacco, ethanol consumption socially. PHYSICAL EXAMINATION Height 6 feet 1 inch, weight 184 pounds. GENERAL: An alert, oriented, responsive 87-year-old white male who sits quietly upon examination table with no obvious distress. HEENT: Pupils are equally round and reactive to light. Extraocular movements full. Sclerae clear. External nares clear. External auditory canals clear. Semi-edentulous with dental implants in place. Mucous membranes pink and moist. Pharynx is clear. Neck: Supple. Active range of motion without significant pain. Carotid pulse bilaterally. Trachea midline. Thyroid without enlargement. Lungs: Clear to auscultation and percussion. No CVA tenderness. No discomfort throughout the dorsal lumbar spine. Heart: Regular rhythm. No murmur or gallop. Abdomen: Soft, nontender. Bowel sounds present. Rectal: Per primary care physician. Extremities: Right knee. No significant swelling or effusion. There is medial joint line tenderness. Apprehension and compression sign negative. He has zero to 100 degrees range of motion with pain at the extreme of mobility. No appreciable crepitation. No collateral ligamentous instability. Meaghan test and drawer sign negative. Pivot-shift and Diego sign positive for medial compartment pain. Straight-leg raising unremarkable at 80 degrees, satisfactory mobility of the right hip with no associated pain. Mild antalgic gait. Neurologic: Cranial nerves II-XII grossly intact. IMPRESSION Osteoarthritis of the right knee, pain right knee, gait disturbance. PLAN Right total knee arthroplasty. The nature of the planned surgical procedure, the potential complications and risks associated, the expectations of surgery and the consent form were thoroughly reviewed with the patient in the presence of his significant other prior to admission to the hospital. Jayce has indicated his full understanding regarding all of the above and given consent to proceed with treatment as outlined. Medical evaluation and clearance for surgery will be completed by his primary care physician, Dr. Deb Vega. Nubia Anne MD NBS/CLAIRE /5:39 PM /10:04 PM
[~2017-09-24] VITALS: Ht 185.4 cm; Wt 88.2 kg
[~2017-09-24 05:30] MED LIST changes: -LEVA750T PO; -OSEL75 PO
[2017-09-24] MEDS ORDERED: POVIDONE IODINE 5% (ANTISEPSIS KIT) 4 APPLICATIONS EACH NARE PRN (06:00)
[2017-09-24] MEDS ORDERED: CHLORHEXIDINE GLUCONATE 2 % 1 PACK (2 CLOTHS) TOPICAL PRN (06:00)
[2017-09-24] MEDS ORDERED: SODIUM CHLORID 0.9% 500 ML IV PRN (06:00)
[2017-09-24] MEDS ORDERED: TRANEXAMIC ACID 1 GM PRIOR TO PROCEDURE IV SCH ×2 (06:00)
[2017-09-24] MEDS ORDERED: POVIDONE IODINE 7.5% SCRUB 118 ML BOTTLE TOPICAL SCH (06:00)
[2017-09-24] MEDS ORDERED: TRANEXAMIC ACID 1 GM POST-OP IV SCH ×2 (06:00)
[2017-09-24] MEDS ORDERED: METOPROLOL TARTRATE 25 MG TAB PO PRN (06:00)
[2017-09-24] MEDS ORDERED: VANCOMYCIN 1000 MG/NS 250 ML (for <70 kg) IV SCH ×2 (06:00)
[2017-09-24] MEDS ORDERED: LACTATED RINGER'S 1000 ML IV PRN (06:00)
[2017-09-24] MEDS ORDERED: GENTAMICIN SULFATE 80 MG/2 ML VIAL ONE (06:04)
[2017-09-24] MEDS ORDERED: VANCOMYCIN 1 GM/200 ML INJ 200 ML IV ONE (06:14)
[2017-09-24] MEDS ORDERED: MIDAZOLAM HCL 2 MG/2 ML VIAL ONE (06:28)
[2017-09-24] MEDS ORDERED: SODIUM CHLORIDE 0.9% INJ 10 ML ONE (06:29)
[2017-09-24] MEDS ORDERED: BUPIVACAINE LIPOSOME PF 1.3% 20 ML VIAL ONE (06:29)
[2017-09-24] MEDS ORDERED: ACETAMINOPHEN 1000 MG/100 ML 100 ML IV ONE (06:32)
[2017-09-24] MEDS ORDERED: FAMOTIDINE 20 MG/2 ML VIAL ONE ×2 (06:34→06:35)
[2017-09-24] MEDS ORDERED: EXPAREL PERI-ARTICULAR INJECTION (TOTAL VOL. 60 ML) P-ARTICULR SCH ×2 (06:45)
[2017-09-24] MEDS ORDERED: DO NOT ADM ANY ANTICOAGULANT DRUGS PRN (09:32)
[2017-09-24] MEDS ORDERED: TRANEXAMIC ACID INJ 1,000 MG in SODIUM CHLORIDE 0.9% INJ 100 ML IV SCH (09:45)
[2017-09-24] MEDS ORDERED: NALOXONE HCL 0.4 MG/ML AMP IV PUSH PRN (09:45)
[2017-09-24] MEDS ORDERED: HYDROmorphone HCL PF 2 MG/ML VIAL ONE (09:47)
[2017-09-24] MEDS ORDERED: Post-op Orders (for Pharmacy) XX ONE (11:00)
[2017-09-24] MEDS ORDERED: ACETAMINOPHEN 325 MG TAB PO PRN (11:00)
[2017-09-24] MEDS ORDERED: ACETAMINOPHEN/HYDROcodone 325 MG/5 MG TAB PO PRN (11:00)
[2017-09-24] MEDS: DEXT 5%-NACL 0.45% 1000 ML INJ 1,000 ML IV SCH ×2 (11:00→18:46)
[2017-09-24] MEDS ORDERED: diphenhydrAMINE HCL 50 MG/ML VIAL IV PUSH PRN (11:30)
[2017-09-24] MEDS ORDERED: DOCUSATE SODIUM 100 MG CAP PO PRN (11:30)
--- NOTE | 2017-09-24 11:40 | MP ---
cc: NUBIA ANNE M.D. DATE OF SURGERY: September 24, 2017 PREOPERATIVE DIAGNOSIS Osteoarthritis of the right knee, pain right knee and gait disturbance. POSTOPERATIVE DIAGNOSIS Osteoarthritis of the right knee, pain right knee and gait disturbance. PROCEDURE Right total knee arthroplasty. SURGEON Nubia Anne MD ANESTHESIA Spinal. INDICATIONS An 87-year-old white male with a lengthy history of right knee pain extending back at least 6 years when he had noted the gradual onset of symptoms about his knee unrelated to injury or unusual activity. At that time he conformed to conservative management but aggravated his symptoms in approximately 2012 but continued to conform to conservative modalities, subsequently undergoing orthopedic evaluation in September 2013. At that time he had reported that he had undergone previous arthroscopic surgery of his right knee within the previous 15-20 years, having been completed in the [facility]. The patient suggested his problems may have been related to a cartilage type injury but was unable to be more specific in this regard. He did benefit from the procedure that was completed at that time. When evaluated in 2013 his x-rays did reveal narrowing throughout the medial compartment that was consistent with degenerative changes with a mild varus orientation. The patient elected to continue with conservative management and began taking ibuprofen on a daily basis as well as a trial course of Aspercreme. An elastic knee support was worn on a p.r.n. basis. He experienced lingering soreness and was given additional options which included therapy intervention. At that time he elected to continue with exercise activities under his own supervision. He returned to the office in March of this past year reporting he was experiencing progressive pain about his right knee that was beginning to interfere with his daily routine, especially as related to all weightbearing activities. He had been taking aspirin in the past but was advised to minimize his use because of GI irritation. His more current x-ray studies did reveal progressive narrowing throughout the medial compartment that was consistent with a degenerative process, at which time the patient did receive an intra-articular steroid injection. When seen in follow-up disposition he reported that the injection had not afforded him any appreciable relief of his pain and he was continuing to alternate between Tylenol and aspirin for pain management. Various treatment options were discussed. The possibility of a repeat arthroscopic procedure versus total knee arthroplasty were outlined. The pluses and minuses of each of these procedures was reviewed. The patient considered his options while continuing a note pain about his right knee that was interfering with all activities of daily living. He was aware of limited endurance while trying to conform to a minimal degree of exercise activities and was continuing to use Tylenol and a minimal amount of aspirin, neither of which were affording him any appreciable relief. Given the progressive nature of his pain and his ongoing difficulties, he returned to the office more recently indicating his desire to proceed with a more definitive course of treatment. At that time he was inclined to consider total knee arthroplasty as the more favorable course of management for long-term management. In compliance with his wishes he was scheduled for admission at this time in order that the above be accomplished. FORMAT Following induction of satisfactory spinal anesthesia as completed per the department of anesthesia, a tourniquet was established around the proximal portion of the right lower extremity. The extremity proper was isolated with a U-drape thus, being prepped with Betadine solution and draped into a sterile field in the routine manner. Prior to initiation of the actual procedure the standard time-out protocol was completed, all parameters were appropriately addressed and confirmed by operating room personnel. The extremity was elevated for approximately 1 minute. Tourniquet thus inflated to 250 mmHg pressure. A sharp skin incision was initiated midline over the anterior aspect of the knee and developed to underlying subcutaneous tissue with hemostasis maintained by electrocautery. By deepening dissection the anterior capsule was exposed. The medial capsulotomy completed and the patella subluxed in the lateral orientation. Examination of the joint space did reveal tricompartmental degenerative changes but being most pronounced throughout the medial compartment. The articular surface of the patella was resected with power saw. The three holed guide was utilized for establishing post holes. Anterior cruciate ligament as well as medial and lateral meniscus structures were sharply excised. A centering hole was placed in the distal aspect of the femur allowing positioning of the intramedullary guide. The distal femoral cutting jig was attached and the distal femur resected. AP measurement noted 75 mm sizing to be satisfactory. The matching cutting block was positioned, anterior, posterior and chamfer cuts were completed. The tibial plateau was thereafter subluxed in an anterior orientation allowing positioning of the extramedullary guide. The tibial plateau was resected and measured with 83 mm sizing determined to be satisfactory. A trial reduction followed utilizing a 75 mm anatomic femoral component, an 83 mm tibial base with 10 mm bearing insert. The knee was reduced and carried through a passive range of motion with good tracking and stability being appreciated. There was no appreciable ligamentous laxity to varus valgus stress at both 0 and 90 degrees flexed posture. Orientation was confirmed as being appropriate with measurement of the pelvic guide through the mechanical axis of the knee. Trial reduction followed utilizing a 37 mm standard three post patellar button. Once again good tracking was demonstrated with no tendency toward subluxation. All trial components being removed the remaining portion of the proximal tibia was prepared for insertion of the permanent component. The joint space was thoroughly lavaged with pulsating antibiotic solution. Hemostasis maintained by electrocautery. An autogenous bone plug was inserted into the distal femoral guide hole and thereafter preparation of Palacos bone cement was utilized in inserting knee components in a sequential fashion which included a 83 mm fixed cruciate tibial plate to which a 10 mm Vanguard tibial bearing insert was secured with locking serrano. The 75 mm Vanguard femoral component was firmly seated, with excess cement being removed, the knee was brought to full extension and thereafter the three post standard 37-mm patellar button was attached and maintained in place with patellar clamp while cement hardening was completed. Final range of motion assessment noted good tracking and stability throughout the knee. Irrigation was repeated with hemostasis maintained. Autovac drain tubes were inserted through superior stab wounds. The joint space was injected with Exparel solution. Capsule was repaired with 0 Vicryl suture. The remaining portion of the wound closed in layers in the routine manner, skin margins being reapproximated with a running subcuticular 3-0 Vicryl suture over which Steri-Strips were applied. Xeroform gauze and a bulky dry sterile dressing were placed. Tourniquet had been deflated after 60 minutes of tourniquet time. The extremity being supported in a canvas knee splint, anesthesia was discontinued. He was thereafter transferred to a hospital bed and returned to the recovery room in satisfactory condition, having tolerated his operative procedure well. Estimated blood loss was approximately 100 ccs as determined per anesthesia. All implants were of the Biomet ct scan tech. MD GALLO Day/TLL /9:31 AM /11:09 AM
--- NOTE | 2017-09-24 11:43 | RADRPT ---
EXAM DATE/TIME: 09/24/2017 09:47 [place] COMPARISON: No previous studies available for comparison. INDICATIONS : Post-op right knee. MEDICAL HISTORY : Cardiovascular disease. Hypertension. Carcinoma, prostate SURGICAL HISTORY : None. ENCOUNTER: Initial ACUITY: 1 day PAIN SCORE: 0/10 LOCATION: Right Knee. FINDINGS: AP and lateral views of the knee following arthroplasty reveals a prosthesis in anatomic alignment. F racture is not appreciated. Surgical drain is evident CONCLUSION: Status post total knee arthroplasty. Madhu Winter MD FACR Madhu Winter MD FACR on September 24, 2017 at 11:33 Board Certified Radiologist. This report was verified electronically.
[2017-09-24] MEDS ORDERED: ONDANSETRON HCL 4 MG/2 ML VIAL IVP PRN (12:00)
[2017-09-24] MEDS ORDERED: PHENYLEPH/NS 1000 MCG/10 ML SYR IV ONE (12:00)
[2017-09-24] MEDS ORDERED: GLYCOPYRROLATE 1 MG/5 ML SYRINGE IV PUSH ONE (12:00)
[2017-09-24] MEDS ORDERED: MEPERIDINE HCL 50 MG/ML VIAL IM PRN (12:00)
[2017-09-24] MEDS ORDERED: ePHEDrine/NS 25 MG/5 ML SYRINGE IV ONE (12:00)
[2017-09-24] MEDS ORDERED: DEXAMETHASONE SOD PHOS 4 MG/ML VIAL IV ONE (12:00)
[2017-09-24] MEDS ORDERED: PROPOFOL 200 MG/20 ML AMP IV ONE (12:00)
[2017-09-24] MEDS ORDERED: LACTATED RINGER'S 1000 ML INJ 1,000 ML IV ONE (12:00)
[2017-09-24 13:30] VITALS: BP 109/70; PULSE 94; RESP 16; TEMP 98.1; O2SAT 96
--- NOTE | 2017-09-24 13:47 | PD.CONS ---
HPI Service [facility] Consult Requested By Reason for Consult medical management Primary Care Physician Deb Vega MD Diagnoses: History of Present Illness patient is a 87 y/o male with history of osteoarthritis who underwent right total knee arthroplasty. at the time of my evaluation he was resting comfortably with no acute distress.pain was mild to moderate. he says that he's feeling dizzy on and off. he denies any chest pain, sob, nausea or vomiting. RN at the bedside. Review of Systems Constitutional: DENIES: Fever, Weight loss, Chills, Night Sweats Eyes: DENIES: Blurred vision, Diplopia, Vision loss, Double Vision Ears, nose, mouth, throat: DENIES: Tinnitus, Vertigo, Throat pain, Epistaxis Respiratory: DENIES: Apneas, Cough, Snoring, Wheezing, Hemoptysis, Sputum production, Shortness of breath Cardiovascular: DENIES: Chest pain, Palpitations, Syncope, Dyspnea on Exertion , PND, Lower Extremity Edema, Orthopnea, Claudication Gastrointestinal: DENIES: Abdominal pain, Black stools, Bloody stools, Constipation, Diarrhea, Nausea, Vomiting, Difficulty Swallowing, Anorexia Genitourinary: DENIES: Urinary frequency, Urgency, Hematuria, Dysuria Musculoskeletal: COMPLAINS OF: Joint pain (right knee), DENIES: Muscle aches, Stiffness, Joint Swelling Integumentary: DENIES: Rash Neurologic: DENIES: Abnormal gait, Headache, Localized weakness, Paresthesias, Seizures, Speech Problems, Tremor, Poor Balance Psychiatric: DENIES: Anxiety, Confusion, Mood changes, Depression, Hallucinations, Agitation, Suicidal Ideation, Homicidal Ideation, Delusions Past Family Social History Allergies: Coded Allergies: penicillin G (Unverified Allergy, Severe, Hives, 08/25/17) morphine (Unverified Allergy, Unknown, hallucination , confusion , 08/25/17) Uncoded Allergies: POLEDOCANOL (Allergy, Severe, ANAPHYLAXIS, 07/13/16) Past Medical History CAD/osteoarthritis/dyslipidemia. Past Surgical History cardiac stent placement/hernia repair. Reported Medications aspirin/ atorvastatin/fish oil/flomax. Active Ordered Medications Inpatient Medications Acetaminophen (Tylenol) 650 mg Q6H PRN PO Temp > 101; Start 09/24/17 at 11:00 Acetaminophen/ Hydrocodone Bitart ([place] 5-325 Mg) 2 tab Q4H PRN PO PAIN SCALE 5 TO 10; Start 09/24/17 at 11:00 Bupivacaine Liposome 20 ml/ Sodium Chloride 60 ml @ 120 mls/hr ONCE P-ARTICULR ; Start 09/24/17 at 06:45; Stop 09/25/17 at 06:44 Chlorhexidine Gluconate (Chlorhexidine 2% Cloth) 3 pack VISCOSE CELLAR CHARGE HAND PRN TOPICAL SEE LABEL COMMENTS; Start 09/24/17 at 06:00; Stop 09/27/17 at 05:59 Dextrose/Sodium Chloride 1,000 ml @ 125 mls/hr Q8H IV Last administered on 09/24at 11:00; Start 09/24/17 at 11:00 Diphenhydramine HCl (Benadryl Inj) 25 mg Q6H PRN IV PUSH ITCHING; Start at 11:30 Docusate Sodium (Colace) 100 mg BID PRN PO constipation; Start 09/24/17 at 11:30 Lactated Ringer's 1,000 ml @ 30 mls/hr Q24H PRN IV SEE LABEL COMMENTS Last administered on 09/24/17at 06:00; Start 09/24/17 at 06:00; Stop 09/24/17 at 11:58; Status DC Meperidine HCl (Demerol Inj) 100 mg Q4H PRN IM PAIN 1-6; Start 09/24/17 at 12:00 Metoprolol Tartrate (Lopressor) 25 mg VISCOSE CELLAR CHARGE HAND PRN PO SEE LABEL COMMENTS; Start 09/24/17 at 06:00; Stop 09/27/17 at 05:59 Miscellaneous Information ALL NURSING DEPARTME... UNSCH PRN .XX SEE LABEL COMMENTS; Start 09/24/17 at 09:32; Stop 09/25/17 at 09:31 Miscellaneous Information (Post-op Orders (for Pharmacy)) STAT ONCE XX ; Start 09/24/17 at 11:00; Stop 09/24/17 at 11:01; Status DC Miscellaneous Medication ([facility]) ONCE ONCE XX ; Start 09/26 at 12:00; Stop 09/26/17 at 12:01 Naloxone HCl (Narcan Inj) 0.4 mg UNSCH PRN IV PUSH RESPIRATORY RATE LESS THAN 10; Start 09/24/17 at 09:45; Status UNV Ondansetron HCl (Zofran Inj) 4 mg Q6H PRN IVP NAUSEA OR VOMITING; Start at 12:00 TEST FIXTURE ASSEMBLER Dosage Infused (Pha) 1 Q8HR .XX ; Start 09/24/17 at 14:00; Status UNV Povidone Iodine (Betadine 5% Antisepsis Kit) 1 applic VISCOSE CELLAR CHARGE HAND PRN EACH NARE SEE LABEL COMMENTS Last administered on 09/24/17at 06:15; Start 09/24/17 at 06:00; Stop 09/27/17 at 05:59 Povidone Iodine (Betadine 7.5% Scrub) 1 applic ONCE TOPICAL Last administered on 09/24/17at 06:30; Start 09/24/17 at 06:00; Stop 09/27/17 at 05:59 Rivaroxaban (Xarelto) 10 mg Q24H PO ; Start 09/25/17 at 10:00 Sodium Chloride 500 ml @ 30 mls/hr [id number] PRN IV SEE LABEL COMMENTS; Start 09/24/17 at 06:00; Stop 09/24/17 at 11:58; Status DC Tranexamic Acid 1000 mg/Sodium Chloride 110 ml @ 220 mls/hr ONCE IV Last administered on 09/24/17at 09:51; Start 09/24/17 at 06:00; Stop 09/24/17 at 14:00 Vancomycin HCl 1000 mg/Sodium Chloride 250 ml @ 250 mls/hr Q12H IV ; Start 09/24 at 19:00; Stop 09/25/17 at 07:59 Zolpidem Tartrate (Ambien) 5 mg HS PRN PO SLEEP; Start 09/24/17 at 21:00 Family History not relevant to this consult. Social History no smoking. drinks occasionally. Physical Exam Vital Signs Vital Signs Date Time Temp Pulse Resp B/P (MAP) Pulse Ox O2 Delivery O2 Flow Rate FiO2 09/24/17 10:30 96.6 68 15 162/92 (115) 95 Nasal Cannula 2 09/24/17 10:17 15 09/24/17 10:15 67 15 163/96 (118) 100 Nasal Cannula 3 09/24/17 10:00 96.3 66 14 162/93 (116) 99 Nasal Cannula 3 09/24/17 09:45 69 14 158/84 (108) 98 Nasal Cannula 3 09/24/17 09:32 96.1 73 10 171/83 (112) 100 Simple Mask 8 09/24/17 09:32 96.1 09/24/17 06:07 97.5 59 20 148/80 (102) 98 Physical Exam GENERAL: This is a well-nourished, well-developed patient, in no apparent distress. SKIN: No rashes, ecchymoses or lesions. Cool and dry. HEAD: Atraumatic. Normocephalic. No temporal or scalp tenderness. EYES: Pupils equal round and reactive. Extraocular motions intact. No scleral icterus. No injection or drainage. ENT: Nose without bleeding, purulent drainage or septal hematoma. Throat without erythema, tonsillar hypertrophy or exudate. Uvula midline. Airway patent. NECK: Trachea midline. No JVD or lymphadenopathy. Supple, nontender, no meningeal signs. CARDIOVASCULAR: Regular rate and rhythm without murmurs, gallops, or rubs. RESPIRATORY: Clear to auscultation. Breath sounds equal bilaterally. No wheezes , rales, or rhonchi. GASTROINTESTINAL: Abdomen soft, non-tender, nondistended. No hepato-splenomegaly , or palpable masses. No guarding. MUSCULOSKELETAL: right knee covered with clean dressing. NEUROLOGICAL: Awake and alert. Cranial nerves II through XII intact. Motor and sensory grossly within normal limits. Five out of 5 muscle strength in all muscle groups. Normal speech. Imaging Last Impressions Knee X-Ray 09/24/17 0944 Signed Impressions: Service Date/Time: Sunday, September 24, 2017 09:47 - CONCLUSION: Status post total knee arthroplasty. Madhu Winter MD Assessment and Plan Assessment and Plan A/P - osteoarthritis- s/p right total knee arthroplasty continue pain control and PT. management per ortho. -CAD- s/p stent placement; continue statin- resume aspirin when ok with ortho. -DVT prophylaxis; on Xarelto- per ortho. thank you for the consult. Discussed Condition With the patient and RN. Audrey Randall MD Sep 24, 2017 13:47
[2017-09-24] MEDS ORDERED: PCA - TOTAL MG DILAUDID DELIVERED PER SHIFT SCH (14:00)
[2017-09-24] MEDS ORDERED: NALOXONE HCL 0.4 MG/ML AMP ONE (14:35)
[2017-09-24] MEDS ORDERED: NALOXONE HCL 0.4 MG/ML AMP IV ONE (14:40)
[2017-09-24] MEDS ORDERED: LORazepam 2 MG TAB PO PRN (15:30)
[2017-09-24] MEDS ORDERED: SUCRALFATE 1 GM/10 ML CUP PO PRN (15:30)
[2017-09-24] MEDS ORDERED: LORazepam 2 MG/ML VIAL IV PUSH PRN ×2 (15:30)
[2017-09-24] MEDS ORDERED: LORazepam 1 MG TAB PO PRN (15:30)
[2017-09-24] MEDS ORDERED: FLUMAZENIL 0.5 MG/5 ML VIAL IV PUSH PRN (15:30)
[2017-09-24 16:00] VITALS: BP 136/74; PULSE 89; RESP 16; TEMP 98; O2SAT 98
[2017-09-24] MEDS: VANCOMYCIN INJ 1,000 MG in SODIUM CHLOR 0.9% 250 ML INJ 250 ML IV SCH (18:45)
[2017-09-24 20:36] VITALS: BP 118/66; PULSE 82; RESP 18; TEMP 97.5; O2SAT 99
[2017-09-24] MEDS ORDERED: NON-FORMULARY DRUG (Brinzolamide Opth Drops (Azopt Opth Drops) 1 DROP) EACH EYE SCH (21:00)
[2017-09-24] MEDS ORDERED: ZOLPIDEM TARTRATE 5 MG TAB PO PRN (21:00)
[2017-09-24] MEDS: LATANOPROST 0.005% OPHT SOLN 2.5 ML BTL EACH EYE SCH (21:00)
[2017-09-24] MEDS ORDERED: BRINZOLAMIDE EACH EYE SCH (21:00)
[2017-09-24] MEDS: TAMSULOSIN HCL 0.4 MG CAP PO SCH (22:00)
[2017-09-24] MEDS: ATORVASTATIN 20 MG TAB PO SCH (22:00)
[2017-09-25] VITALS (11 sets, daily range): BP systolic 116–171; BP diastolic 59–92; PULSE 58–95; RESP 16–25; TEMP 95.9–99; O2SAT 86–99
[2017-09-25] MEDS: ACETAMINOPHEN/HYDROcodone 325 MG/5 MG TAB PO PRN ×2 (03:01→08:52)
[2017-09-25] MEDS ORDERED: HYDR-3516 PO (06:14)
[2017-09-25] MEDS ORDERED: ASPI-183 PO (06:14)
--- NOTE | 2017-09-25 06:16 | HHI.FF ---
Face to Face Verification Diagnosis: (1) DJD (degenerative joint disease) of knee Physical Therapy Gait training Knee: Total knee, Protocol: Right, Full weight bearing Right LE Weight Bearing: WB as tolerated Right LE Range of Motion: Active ROM Nursing Dressing Changes: Daily dressing change I have seen patient Jayce Reyna on 09/25/17. My clinical findings support the need for the requested home health care services because: Limited ability to care for self Need for psychosocial assistance High risk of falls I certify that my clinical findings support that this patient is homebound because: Post-op weakness Unsteady gait/balance Unsafe to leave home unassisted Polo Anne MD Sep 25, 2017 06:16
[2017-09-25] MEDS ORDERED: WALKER WHEELS/F1 MIS (06:18)
[2017-09-25] MEDS: DEXT 5%-NACL 0.45% 1000 ML INJ 1,000 ML IV SCH ×3 (06:40→18:48)
[2017-09-25] MEDS: VANCOMYCIN INJ 1,000 MG in SODIUM CHLOR 0.9% 250 ML INJ 250 ML IV SCH (06:41)
[2017-09-25 08:02] LABS: HEMATOCRIT 31.6 % (39.0-51.0); HEMOGLOBIN 11.1 GM/DL (13.0-17.0)
[2017-09-25] MEDS: MULTIVITAMIN-OPHTHALMIC 1 TAB PO SCH (08:52)
[2017-09-25] MEDS: RIVAROXABAN 10 MG TAB PO SCH (08:52)
[2017-09-25] MEDS: LORazepam 2 MG/ML VIAL IV PUSH PRN ×3 (08:53→14:48)
[2017-09-25] MEDS ORDERED: chlordiazePOXIDE 25 MG CAP PO PRN (13:00)
--- NOTE | 2017-09-25 13:04 | HHI.PR ---
Subjective Remarks Pt somnolent. mumbling but keeps eyes closed. RN present. She tells me that pt drinks everyday and has been agitated and withdrawing. He just got ativan IV at this time explaining his somnolence. Pt is getting one beer w meals but not enough to help w agitation. No other concerns Objective Vitals Vital Signs Date Time Temp Pulse Resp B/P (MAP) Pulse Ox O2 Delivery O2 Flow Rate FiO2 09/25/17 12:00 96.5 68 17 116/64 (81) 96 09/25/17 09:27 21 09/25/17 08:01 Room Air 09/25/17 08:00 95.9 58 18 124/59 (80) 97 09/25/17 03:52 18 09/25/17 03:08 98.4 63 18 117/65 (82) 93 09/25/17 00:24 97.9 72 18 117/60 (79) 95 09/24/17 22:59 Room Air 09/24/17 20:36 97.5 82 18 118/66 (83) 99 09/24/17 16:00 98.0 89 16 136/74 (94) 98 09/24/17 13:30 98.1 94 16 109/70 (83) 96 09/24/17 13:00 98.0 75 16 140/75 (96) 96 Room Air I/O 09/24/17 09/24/17 09/24/17 09/25/17 09/25/17 09/25/17 07:00 15:00 23:00 07:00 15:00 23:00 Intake Total 1760 ml 360 ml 240 ml Output Total 150 ml 2450 ml 1720 ml 150 ml Balance 1610 ml -2090 ml -1480 ml -150 ml Intake Oral 360 ml 240 ml IV Total 360 ml Other 1400 ml Output Urine Total 2250 ml 1450 ml Drainage Total 50 ml 200 ml 270 ml 150 ml Estimated Blood Loss 100 ml Bladder Scan Volume Amount 840 ml # Voids 0 1 # Bowel Movements 0 0 Result Diagram: 09/25/17 0735 Imaging Last Impressions Knee X-Ray 09/24/17 0944 Signed Impressions: Service Date/Time: Sunday, September 24, 2017 09:47 - CONCLUSION: Status post total knee arthroplasty. Madhu Winter MD Objective Remarks GENERAL: asleep but mumbles when I call his name and speak w him. does answer yes when I ask him if he is cold. EYES: keeps eyes closed ENT: Nose without drainage . Airway patent. NECK: Trachea midline. CARDIOVASCULAR: Regular rate and rhythm without murmurs RESPIRATORY: Clear to auscultation. Breath sounds equal bilaterally. No wheezes GASTROINTESTINAL: Abdomen soft, non-tender MUSCULOSKELETAL: right knee covered with clean dressing. NEUROLOGICAL: somnolent, calm, moves upper extremities and grabbing his sheets A/P Assessment and Plan - osteoarthritis- s/p right total knee arthroplasty POD 1 continue pain control and PT. management per ortho. H&H 11.1/31.6 -CAD- s/p stent placement; continue statin- resume aspirin when ok with ortho. -Alcohol abuse: on CIWA protocol. Added librium po. continue thiamine/folate/MV -DVT prophylaxis; on Xarelto- per ortho. Discharge Planning per primary team Arabella Carranza MD Sep 25, 2017 13:04
[2017-09-25] MEDS: FOLIC ACID 1 MG TAB PO SCH (14:47)
[2017-09-25] MEDS: MULTIVITAMIN TAB PO SCH (14:47)
[2017-09-25] MEDS: THIAMINE HCL 100 MG TAB PO SCH (14:47)
[2017-09-25] MEDS: ATORVASTATIN 20 MG TAB PO SCH (21:30)
[2017-09-25] MEDS: LATANOPROST 0.005% OPHT SOLN 2.5 ML BTL EACH EYE SCH (21:30)
[2017-09-25] MEDS: TAMSULOSIN HCL 0.4 MG CAP PO SCH (21:30)
[2017-09-26] MEDS: LORazepam 2 MG/ML VIAL IV PUSH PRN (01:17)
[2017-09-26] MEDS: DEXT 5%-NACL 0.45% 1000 ML INJ 1,000 ML IV SCH ×3 (03:31→18:54)
[2017-09-26 04:48] LABS: HEMATOCRIT 32.6 % (39.0-51.0); HEMOGLOBIN 11.2 GM/DL (13.0-17.0)
--- NOTE | 2017-09-26 08:27 | HHI.PR ---
Subjective Remarks Patient being seen in the ICU. He is more alert today. Tells me he is hungry. Denies any pain. Discussed with ICU nurse, tells me that overnight patient was very agitated requiring restraints. He required a nonrebreather however he kept pulling it off. He did calm down and now is down to 3 L and doing well. Objective Vitals Vital Signs Date Time Temp Pulse Resp B/P (MAP) Pulse Ox O2 Delivery O2 Flow Rate FiO2 09/25/17 21:56 98 Nasal Cannula 3.00 09/25/17 21:45 98.4 95 25 171/81 (111) 98 09/25/17 21:45 98 Nasal Cannula 10.00 21 09/25/17 20:08 97 Partial Non-Rebreather 09/25/17 20:00 96.8 80 21 156/92 (113) 98 09/25/17 19:57 92 Partial Rebreather 10.00 09/25/17 18:53 71 16 99 09/25/17 15:55 Partial Non-Rebreather 09/25/17 15:55 60 16 99 09/25/17 15:48 99.0 71 16 141/62 (88) 86 09/25/17 12:00 96.5 68 17 116/64 (81) 96 09/25/17 09:27 21 I/O 09/25/17 09/25/17 09/25/17 09/26/17 09/26/17 09/26/17 07:00 15:00 23:00 07:00 15:00 23:00 Intake Total 240 ml 1030 ml 990 ml Output Total 1720 ml 1150 ml 1250 ml Balance -1480 ml -120 ml -260 ml Intake Oral 240 ml 480 ml IV Total 550 ml 990 ml Output Urine Total 1450 ml 1000 ml 1250 ml Drainage Total 270 ml 150 ml 0 ml # Bowel Movements 0 0 0 Result Diagram: 09/26/17 0436 Imaging Last Impressions Knee X-Ray 09/24/17 0913 Signed Impressions: Service Date/Time: Sunday, September 24, 2017 09:47 - CONCLUSION: Status post total knee arthroplasty. Madhu Winter MD Objective Remarks GENERAL: More alert this morning. He continues to mumbles but he is more understandable. He does voice that he is hungry. Wants to be off restraints EYES: Extraocular motion is intact ENT: Nose without drainage . Airway patent. Nasal cannula in place NECK: Trachea midline. CARDIOVASCULAR: Regular rate and rhythm without murmurs RESPIRATORY: Clear to auscultation. Breath sounds equal bilaterally. No wheezes GASTROINTESTINAL: Abdomen soft, non-tender MUSCULOSKELETAL: right knee covered with clean dressing. Drain in place NEUROLOGICAL: somnolent, calm, moves the left lower extremity up and down. He tries to move his upper extremities but he is in restraints A/P Assessment and Plan - osteoarthritis- s/p right total knee arthroplasty POD 2 continue pain control and PT and anticoagulation management per ortho. H&H 11.2/32.6 -CAD- s/p stent placement; continue statin- resume aspirin when ok with ortho. -Alcohol abuse: on CIWA protocol. Added librium po. continue thiamine/folate/ MV. Clonidine added for elevated blood pressures greater than 160/90. I have ordered an ABG. Follow-up. -DVT prophylaxis; on Xarelto- per ortho. Discharge Planning Clinically patient seem he is improving. For now, we will continue to monitor in the ICU. If he continues to do better, will transfer back to the sixth floor. Continue restraints for now. I strongly recommend avoiding Arabella Alford MD Sep 26, 2017 08:27
[2017-09-26] MEDS ORDERED: cloNIDine HCL 0.1 MG TAB PO PRN (08:30)
[2017-09-26 09:52] VITALS: O2SAT 97
[2017-09-26] MEDS: MULTIVITAMIN-OPHTHALMIC 1 TAB PO SCH (10:34)
[2017-09-26] MEDS: THIAMINE HCL 100 MG TAB PO SCH (10:40)
[2017-09-26] MEDS: MULTIVITAMIN TAB PO SCH (10:41)
[2017-09-26] MEDS: RIVAROXABAN 10 MG TAB PO SCH (10:42)
[2017-09-26] MEDS: FOLIC ACID 1 MG TAB PO SCH (10:43)
[2017-09-26] MEDS ORDERED: MISCELLANEOUS PHARMACY INFORMATION XX ONE (12:00)
--- NOTE | 2017-09-26 17:52 | HHI.PR ---
Addendum to Inpatient Note Addendum Reason: Additional Documentation Additional Information I re-evaluated the patient. Pt currently sleepy, he does mumbles when I wake him up. He does open his eyes upon command. Per RN, pt has been calm since 1 pm. Prior to then, he was a bit agitated. she is comfortable removing restraints and monitoring him off of them overnight. Pt's BP is in the 130's systolic and HR in the 90's. Pt satting 98% on RA. If pt remains off restraints overnight and continues to improve and is able to participate in PT in the AM, pt may be able to be d/c to rehab per primary team. Pt to be re-evaluated in AM. ABG reviewed. Arabella Carranza MD Sep 26, 2017 17:52
[2017-09-26] MEDS: ACETAMINOPHEN/HYDROcodone 325 MG/5 MG TAB PO PRN ×2 (18:50→22:29)
[2017-09-26] MEDS: TAMSULOSIN HCL 0.4 MG CAP PO SCH (21:51)
[2017-09-26] MEDS: ATORVASTATIN 20 MG TAB PO SCH (21:52)
[2017-09-26] MEDS: LATANOPROST 0.005% OPHT SOLN 2.5 ML BTL EACH EYE SCH (21:52)
[2017-09-27] MEDS: DEXT 5%-NACL 0.45% 1000 ML INJ 1,000 ML IV SCH (03:00)
[2017-09-27] MEDS: ACETAMINOPHEN/HYDROcodone 325 MG/5 MG TAB PO PRN (06:17)
[2017-09-27 06:32] LABS: HEMOGLOBIN 11.4 GM/DL (13.0-17.0)
[2017-09-27 07:54] VITALS: O2SAT 94
[2017-09-27] MEDS: THIAMINE HCL 100 MG TAB PO SCH (09:21)
[2017-09-27] MEDS: MULTIVITAMIN TAB PO SCH (09:21)
[2017-09-27] MEDS: MULTIVITAMIN-OPHTHALMIC 1 TAB PO SCH (09:21)
[2017-09-27] MEDS: RIVAROXABAN 10 MG TAB PO SCH (09:21)
[2017-09-27] MEDS: FOLIC ACID 1 MG TAB PO SCH (09:25)
--- NOTE | 2017-09-27 09:28 | HHI.DS ---
Discharge Summary Admission Date Sep 24, 2017 at 05:30 Discharge Date: Sep 27, 2017 Admitting Diagnosis (1) DJD (degenerative joint disease) of knee ICD Code: M17.10 - Unilateral primary osteoarthritis, unspecified knee (2) Alcoholism /alcohol abuse ICD Code: F10.20 - Alcohol dependence, uncomplicated Procedures Right Knee Replacement Brief History - From Admission patient is a 87 y/o male with history of osteoarthritis who underwent right total knee arthroplasty. at the time of my evaluation he was resting comfortably with no acute distress.pain was mild to moderate. he says that he's feeling dizzy on and off. he denies any chest pain, sob, nausea or vomiting. RN at the bedside. CBC/BMP: 09/27/17 0555 Significant Findings Laboratory Tests Test 09/25/17 07:35 09/26/17 04:36 09/26/17 10:22 09/27/17 05:55 Hemoglobin 11.1 GM/DL (13.0-17.0) 11.2 GM/DL (13.0-17.0) 11.4 GM/DL (13.0-17.0) Hematocrit 31.6 % (39.0-51.0) 32.6 % (39.0-51.0) 33.0 % (39.0-51.0) Arterial Blood pH 7.46 (7.380-7.420) Arterial Blood Partial Pressure CO2 34 mmHg (38-42) Blood Gas Hemoglobin 10.7 G/DL (12.0-16.0) PE at Discharge GENERAL: More alert this morning. He continues to mumbles but he is more understandable. He does voice that he is hungry. Wants to be off restraints EYES: Extraocular motion is intact ENT: Nose without drainage . Airway patent. Nasal cannula in place NECK: Trachea midline. CARDIOVASCULAR: Regular rate and rhythm without murmurs RESPIRATORY: Clear to auscultation. Breath sounds equal bilaterally. No wheezes GASTROINTESTINAL: Abdomen soft, non-tender MUSCULOSKELETAL: right knee covered with clean dressing. Drain in place NEUROLOGICAL: somnolent, calm, moves the left lower extremity up and down. He tries to move his upper extremities but he is in restraints Hospital Course 87M with osteoarthritis of right knee came in for a scheduled right knee replacement which occurred on 09/24/17. He tolerated the surgery well, but a day later began to exhibit signs of confusion, agitation, and other signs of alcohol withdrawal. He has a history of alcoholism and was started on CIWA protocol, after a day and a half he is past the acute portion of the withdrawals and eating on his own in his room, up in the chair, no longer restrained. The standing plan has been to send him to [facility] today. Surgery has signed off with recommendations of [place] for pain and ASA 325mg for clot prevention. Patient appears stable, not 100% reoriented, but drastically improved according to nursing and he seems to me to be well enough for inpatient rehab with daily follow up by our hospitalist service. Pt Condition on Discharge: Good Discharge Disposition: Rehab Inpatient Discharge Time: <= 30 minutes Discharge Instructions DIET: Follow Instructions for: Heart Healthy Diet Activities you can perform: Weight Bearing as Dick Saleh MD Sep 27, 2017 09:28
[2017-09-27] MEDS ORDERED: LORA-474 PO (09:30)
--- NOTE | 2017-10-01 09:07 | MD ---
cc: NUBIA AMAYA,JANINE Vanegas M.D. ADMISSION DATE: 09/24/2017 DISCHARGE DATE: 09/27/2017 ADMISSION DIAGNOSIS Osteoarthritis of the right knee, pain right knee and gait disturbance. DISCHARGE DIAGNOSIS Osteoarthritis of the right knee, pain right knee and gait disturbance. HISTORY An 87-year-old white male with a lengthy history of pain involving his right knee extending back at least 6 years, at which time the patient had noted the gradual onset of his symptoms unrelated to injury or unusual activity. He had initially conformed to conservative management but began to experience increasing pain about the knee region and did subsequently undergo orthopedic evaluation in 2013. At that time he reported that he had undergone previous arthroscopic surgery within the previous 15-20 years as completed in the [facility]. The patient suggested his problems may have been related to a cartilage type injury but was unable to be more specific in this regard. He did benefit from the procedure that was completed at that time. His evaluation in 2013 did reveal degenerative changes about his medial compartment with a mild varus deformity. The patient elected to continue with conservative management and began taking ibuprofen on a daily basis as well as a trial course of Aspercreme and elastic knee support was worn on a p.r.n. basis. The patient did experience lingering soreness about his knee, at which time he did complete a course of therapy intervention. He returned to the office in March of this past year reporting that he is experiencing progressive pain about his right knee that was beginning to interfere with his daily routine, especially related to all weightbearing activities. He had been taking aspirin in the past, for which he was advised to minimize the use of medication because of GI irritation. His more current x-ray studies did reveal progressive narrowing throughout the medial compartment that was consistent with a degenerative process. The patient was treated at that time with an intra-articular steroid injection. In follow-up disposition he reported that the injection had not afforded him any appreciable relief of his pain and thereafter he was alternating between Tylenol and aspirin for additional pain management. Various treatment options were reviewed at that time including the possibility of a repeat arthroscopic procedure versus total knee arthroplasty. The pluses and minuses of each of these procedures were outlined. The patient considered his options in this regard while continuing to conform to conservative management but being limited with regards to his activities of daily living. He returned to the office reporting that he was experiencing progressive symptoms about his knee that was definitely interfering with his daily routine and his endurance regarding weightbearing activities, feeling that he was ready to proceed with a more definitive course of treatment. He indicated that he felt total knee arthroplasty would afford him the more favorable long-term benefit. In compliance with his wishes he was scheduled for admission at this time in order that the above be accomplished. His physical examination at the time of admission revealed no significant swelling or effusion about the right knee. There was medial joint line tenderness. Apprehension and compression sign were negative. A 0 to 100 degrees range of motion with pain at the extremes of mobility. No significant crepitation. No collateral ligamentous instability. Meaghan test and drawer sign negative. Pivot shift and Diego sign positive for medial compartment pain. Straight-leg raising unremarkable at 80 degrees. Satisfactory mobility of the right hip with no appreciable pain. Antalgic gait. HOSPITAL COURSE Prior to admission to the hospital the patient had undergone medical evaluation and clearance for surgery as completed by his primary care physician, Dr. Janine Vega. He was taken to the operating room on September 24, 2017 and on that date underwent a right total knee arthroplasty completed in an uncomplicated manner. The patient was noted to have tolerated his operative procedure well. Hemoglobin/hematocrit assessment postoperatively was 11.4 and 33, respectively. The patient was progressively mobilized under the guidance of physical therapy, difficulty was encountered during the postoperative period that included symptoms that were thought to be consistent with alcoholic withdrawal as well as some respiratory depression that required additional medical management. The patient was transferred to the intensive medical care unit for continued monitoring during the remainder of his hospital stay. His rehabilitation was limited because of his medical issues but his wound was noted to heal favorably with no evidence of infection. Border Machine Operator was consulted to assist with discharge planning. [place] agreement was noted with regards to the admitting physician, his treating hospitalist and his significant other, that would be in the patient's best interest to proceed with rehab placement. Plans were finalized in this regard and having received medical clearance, the patient was transferred on the third postoperative day to continue his rehabilitation program. He was scheduled to be seen in office followup in approximately 4 weeks. His condition at that time was stable, prognosis favorable. MEDICATIONS Discharge medications included: 1. Hydrocodone 5/325 #60. 2. Aspirin 325 mg one tab twice daily for 3 weeks. MD GALLO Day/MILDRED /10:02 AM /8:42 AM
== END 2017-09-27 11:55 | DRG 470 ==
LOC: HSDI 05:30 → N06B 13:18 → N06A 19:15 → N03A 09-25 21:14
PROVIDERS: ADMIT Orthopaedic Surgery; ATTEND Orthopaedic Surgery
PROC: 3E0T3BZ Introduction of Anesthetic Agent into Peripheral Nerves and Plexi, Percutaneous Approach (ICD-10-PCS; 2017-09-24)
PROC: 0SRC0J9 Replacement of Right Knee Joint with Synthetic Substitute, Cemented, Open Approach (ICD-10-PCS; principal; 2017-09-24 06:45)
DX: M17.11 Unilateral primary osteoarthritis, right knee (principal); Z78.1 Physical restraint status; F03.90 Unspecified dementia, unspecified severity, without behavioral disturbance, psychotic disturbance, mood disturbance, and anxiety; F10.239 Alcohol dependence with withdrawal, unspecified; I10 Essential (primary) hypertension; E78.5 Hyperlipidemia, unspecified; H40.9 Unspecified glaucoma; I25.10 Atherosclerotic heart disease of native coronary artery without angina pectoris; Z88.0 Allergy status to penicillin; Z88.5 Allergy status to narcotic agent; Z95.5 Presence of coronary angioplasty implant and graft
CPT/HCPCS: 36600; 73560; 82805; 85014; 85018; 86850; 86900; 86901; 88305; C1776; C9290; J0131; J1100; J1170; J1580; J2060; J2175; J2250; J2310; J2370; J3010; J3370; J7050; J7120; L1830

== ENCOUNTER 2017-10-30 13:46 | Emergency (ER) | payer MEDICARE, BC ==
[~2017-10-30] VITALS: Ht 185.4 cm; Wt 82.0 kg
[~2017-10-30 13:46] MED LIST changes: +ASPI-183 PO; -ASPI81CH6 PO; +GETGO ROLLING W1 MI1; +HYDR-3516 PO; +THIA100 PO; +WALKER WHEELS/F1 MIS
[2017-10-30 14:00] VITALS: BP 141/65; PULSE 66; RESP 16; TEMP 97.5; O2SAT 98
[2017-10-30 15:57] VITALS: BP 159/78; PULSE 66; RESP 16; O2SAT 98
--- NOTE | 2017-10-30 17:08 | RADRPT ---
EXAM DATE/TIME: 10/30/2017 16:50 [facility] COMPARISON: CT BRAIN W/O CONTRAST, September 30, 2017, 16:21. INDICATIONS : Trauma. Fall. Hit head. RADIATION DOSE: 64.56 CTDIvol (mGy) MEDICAL HISTORY : Myocardial infarction. Carcinoma, prostate. Hypertension. SURGICAL HISTORY : Coronary artery stent. TURP. Neurogenic bladder. ENCOUNTER: Initial ACUITY: 1 day PAIN SCALE: 2/10 LOCATION: cranial TECHNIQUE: Multiple contiguous axial images were obtained of the head. Using automated exposure control and adj ustment of the mA and/or kV according to patient size, radiation dose was kept as low as reasonably a chievable to obtain optimal diagnostic quality images. DICOM format image data is available electro nically for review and comparison. FINDINGS: CEREBRUM: The ventricles are normal for age. No evidence of midline shift, mass lesion, hemorrhage or acute in farction. No extra-axial fluid collections are seen. POSTERIOR FOSSA: The cerebellum and brainstem are intact. The 4th ventricle is midline. The cerebellopontine angle i s unremarkable. EXTRACRANIAL: The visualized portion of the orbits is intact. SKULL: The calvaria is intact. No evidence of skull fracture. CONCLUSION: Normal examination for a patient of this age. Torrey Torres MD on October 30, 2017 at 17:05 Board Certified Radiologist. This report was verified electronically.
--- NOTE | 2017-10-30 17:11 | PD ---
HPI Chief Complaint: Fall Time Seen by Provider: 16:06 Travel History International Travel<30 days: No Contact w/Intl Traveler<30days: No Traveled to known affect area: No History of Present Illness HPI Patient is an 87-year-old male who comes in after he tripped and fell earlier today. He says that his feet got tangled and he fell onto his backside in the back and hit his head. He sustained a small scrape to the back of his head. His home health nurse came in today and was concerned and told them they needed to come to the emergency department. He did recently have right knee replacement and is taking 325 mg of aspirin daily. He denies injuring the knee at all. He complains of pain to his left hip. He says he was feeling well prior to the event. He denies having any chest pain, shortness of breath, dizziness, nausea or vomiting. Severity is mild. PFSH Past Medical History Hx Anticoagulant Therapy: Yes Arthritis: Yes Asthma: No Autoimmune Disease: No Anxiety: No Depression: No Heart Rhythm Problems: Yes (BRADYCARDIA) Cancer: Yes (PROSTATE CA WITH CRYO PROCEDURE) Cardiac Catheterization: Yes Cardiovascular Problems: Yes (AK with 1 stents) High Cholesterol: Yes Chemotherapy: No Chest Pain: No Congestive Heart Failure: No COPD: No Cerebrovascular Accident: No Coronary Artery Disease: Yes Diabetes: No Diminished Hearing: No Endocrine: No Gastrointestinal Disorders: No GERD: Yes Glaucoma: Yes (BILATERAL) Genitourinary: Yes (NEUROGENIC BLADDER, stimulater placed 07/04) Hepatitis: No Hiatal Hernia: No Heparin Induced Thrombocytopen: No Hypertension: Yes Immune Disorder: No Implanted Vascular Access Dvce: Yes Kidney Stones: No Musculoskeletal: Yes (OA) Neurologic: No Psychiatric: No Reproductive: No Respiratory: No Immunizations Current: Yes Migraines: No Myocardial Infarction: No Radiation Therapy: No Renal Failure: No Seizures: No Sickle Cell Disease: No Sleep Apnea: No Thyroid Disease: No Ulcer: No Influenza Vaccination: Yes Past Surgical History Abdominal Surgery: No AICD: No Arteriovenous Shunt: No Body Medical Devices: CARDIAC STENTS, BLADDER INTERSTEM, DENTAL IMPLANTS Cardiac Surgery: Yes (stent placment) Coronary Artery Bypass Graft: No Coronary Stent: Yes (X 1) Ear Surgery: No Endocrine Surgery: No Eye Surgery: Yes (BILATERAL CATERACT EXT WITH LENSES, LASER LEFT EYE) Genitourinary Surgery: Yes (CRYO SX PROSTATE, TURP) Gynecologic Surgery: No Insulin Pump: No Joint Replacement: No Oral Surgery: Yes (dental implants) Pacemaker: No Thoracic Surgery: No Other Surgery: Yes Social History Alcohol Use: Yes (BEER PER DAY ) Tobacco Use: No Substance Use: No Allergies-Medications (Allergen,Severity, Reaction): Coded Allergies: penicillin G (Unverified Allergy, Severe, Hives, 10/30/17) morphine (Unverified Allergy, Unknown, hallucination , confusion , 10/30/17 ) Uncoded Allergies: POLEDOCANOL (Allergy, Severe, ANAPHYLAXIS, 10/30/17) . Reported Meds & Prescriptions Reported Meds & Active Scripts Active Sucralfate Liq (Sucralfate) 1 Gram/10 Ml Elke 1 Gm PO TID@0700,1100,1600 30 Days Aspirin 325 Mg Tab 325 Mg PO BID Hydrocodone-Acetamin 5-325 mg (Hydrocodone/Acetaminophen) 5 Mg-325 Mg Tablet 1 Tab PO Q6HR PRN Galantamine (Galantamine Hydrobromide) 4 Mg Tab 4 Mg PO BID Flomax (Tamsulosin HCl) 0.4 Mg Cap 0.4 Mg PO HS Ocuvite (Multiple Vitamins W/ Minerals) 1 Tab 1 Tab PO DAILY Reported Lumigan Opth Drops (Bimatoprost) 0.01% Soln 1 Drop EACH EYE HS Azopt Opth Drops (Brinzolamide) 1% Susp 1 Drop EACH EYE BID Fish Oil + D3 (Fish Oil-Cholecalciferol) 1,200-1,000 Mg-Unit Cap 1 Cap PO DAILY Review of Systems General / Constitutional: No: Fever, Chills Eyes: No: Blurred Vision HENT: No: Headaches, Lightheadedness Cardiovascular: No: Chest Pain or Discomfort Respiratory: No: Shortness of Breath Gastrointestinal: No: Nausea, Vomiting Musculoskeletal: Positive: Pain Neurologic: No: Syncope Physical Exam Narrative GENERAL: Awake and alert, in no acute distress. SKIN: Focused skin assessment warm/dry. Superficial abrasion to the right occiput. HEAD: Atraumatic. Normocephalic. EYES: Pupils equal and round and reactive. No scleral icterus. EOMI. ENT: Mucous membranes pink and moist. NECK: Trachea midline. No JVD. No cervical spine tenderness. CARDIOVASCULAR: Regular rate and rhythm. No murmur appreciated. RESPIRATORY: No accessory muscle use. Clear to auscultation. Breath sounds equal bilaterally. MUSCULOSKELETAL: No obvious deformities. No clubbing. No cyanosis. No edema. Tender to palpation of the left hip. NEUROLOGICAL: Awake and alert. No obvious cranial nerve deficits. Motor grossly within normal limits. Normal speech. Data Data Last Documented VS Vital Signs Date Time Temp Pulse Resp B/P (MAP) Pulse Ox O2 Delivery O2 Flow Rate FiO2 10/30/17 15:57 66 16 159/78 (105) 98 Room Air 10/30/17 14:[address] Brain W/O Iv Contrast(Rout) (10/30/17 ) Pelvis, Ap Only (Routine) (10/30/17 ) MDM Medical Decision Making Medical Screen Exam Complete: Yes Emergency Medical Condition: Yes Medical Record Reviewed: Yes Differential Diagnosis ICH versus concussion versus hip fracture versus fall Narrative Course Patient is a 87 year old male who comes in after a fall. Exam shows abrasion to the back of the head. CT head shows no acute abnormalities. Pelvis XR shows no acute abnormalities. Patient reassured. Advised to follow up with his doctor. Advised to return at any time for any worsening symptoms. Diagnosis Primary Impression: Fall Qualified Codes: W19.XXXA - Unspecified fall, initial encounter Patient Instructions: Fall Prevention (ED), General Instructions Additional Instructions: Follow up with your doctor. Return to the ED as needed for any worsening symptoms. Disposition: 01 DISCHARGE HOME Condition: Stable Rosario Chavez MD Oct 30, 2017 17:11
--- NOTE | 2017-10-30 17:13 | RADRPT ---
EXAM DATE/TIME: 10/30/2017 16:20 [facility] COMPARISON: No previous studies available for comparison. INDICATIONS : Pelvic pain; fall today. MEDICAL HISTORY : Carcinoma, prostatic. SURGICAL HISTORY : Bladder stimulator. TURP. ENCOUNTER: Initial ACUITY: 1 day PAIN SCORE: 6/10 LOCATION: Bilateral pelvis FINDINGS: A single frontal view of the pelvis demonstrates no acute fracture. Spinal stimulator wire overlies r ight hemipelvis. Previous hernia repair. CONCLUSION: 1. No acute bony abnormalities. Torrey Torres MD on October 30, 2017 at 17:10 Board Certified Radiologist. This report was verified electronically.
[2017-10-30 17:37] VITALS: BP 115/58
== END 2017-10-30 17:45 | disposition home or self-care (01) ==
LOC: PHED 13:46
DX: M25.552 Pain in left hip (principal); S00.01XA Abrasion of scalp, initial encounter; I10 Essential (primary) hypertension; W01.10XA Fall on same level from slipping, tripping and stumbling with subsequent striking against unspecified object, initial encounter; Y92.009 Unspecified place in unspecified non-institutional (private) residence as the place of occurrence of the external cause; Z79.01 Long term (current) use of anticoagulants
CPT/HCPCS: 70450; 72170; 99284

== ENCOUNTER 2017-12-19 05:28 | Day surgery (SDC) | payer MEDICARE, BC ==
[~2017-12-19] VITALS: Ht 185.4 cm; Wt 83.5 kg
[2017-12-19] VITALS (13 sets, daily range): BP systolic 123–145; BP diastolic 63–76; PULSE 47–68; RESP 17–20; TEMP 97.6–98.7; O2SAT 96–99
[~2017-12-19 05:28] MED LIST changes: -GETGO ROLLING W1 MI1; -THIA100 PO; -WALKER WHEELS/F1 MIS
[2017-12-19] MEDS ORDERED: IOHEXOL 350 MG/ML 50 ML BTL (for Cath Lab) OTHER ONE (05:29)
[2017-12-19] MEDS ORDERED: Hold AM Insulin & AM Hypoglycemic medications in diabetic patients PRN (06:00)
[2017-12-19] MEDS ORDERED: POVIDONE IODINE 5% (ANTISEPSIS KIT) 4 APPLICATIONS EACH NARE PRN (06:00)
[2017-12-19] MEDS ORDERED: NO Heparin, Lovenox, Coumadin at least 12 hours prior to procedure. PRN (06:00)
[2017-12-19] MEDS ORDERED: METOPROLOL TARTRATE 25 MG TAB PO PRN (06:00)
[2017-12-19] MEDS ORDERED: SODIUM CHLORID 0.9% 500 ML IV PRN (06:00)
[2017-12-19] MEDS ORDERED: INSULIN HUMAN REGULAR 1,000 UNITS/10 ML VIAL SQ PRN (06:00)
[2017-12-19] MEDS ORDERED: CHLORHEXIDINE GLUCONATE 2 % 1 PACK (2 CLOTHS) TOPICAL PRN (06:00)
[2017-12-19] MEDS ORDERED: POVIDONE IODINE 5% (ANTISEPSIS KIT) 4 APPLICATIONS EACH NARE SCH (06:00)
[2017-12-19] MEDS ORDERED: LACTATED RINGER'S 1000 ML IV PRN (06:00)
[2017-12-19] MEDS ORDERED: VANCOMYCIN 1000 MG/NS 250 ML IV SCH ×2 (06:00)
[2017-12-19] MEDS ORDERED: MUPIROCIN 2% OINT 1 APPLIC/GM SYR NASAL SCH (06:00)
[2017-12-19] MEDS ORDERED: CHLORHEXIDINE GLUCONATE 2 % 1 PACK (2 CLOTHS) TOPICAL SCH (06:00)
[2017-12-19] MEDS: NS 1000 ML IV SCH (06:00)
[2017-12-19] MEDS ORDERED: FAMOTIDINE 20 MG/2 ML VIAL ONE (06:46)
[2017-12-19 06:59] LABS: AUTOMATED NEUTROPHIL # 1.8 TH/MM3 (1.8-7.7); BASOPHIL % 0.6 % (0.0-2.0); EOSINOPHIL # 0.2 TH/MM3 (0-0.4); EOSINOPHIL % 4.4 % (0.0-4.0); HEMATOCRIT 32.3 % (39.0-51.0); HEMOGLOBIN 10.9 GM/DL (13.0-17.0); LYMPH % 32.1 % (9.0-44.0); LYMPHOCYTE # 1.2 TH/MM3 (1.0-4.8); MEAN CELL VOLUME 97.3 FL (80.0-100.0); MEAN CORPUSCULAR HEMOGLOBIN 32.9 PG (27.0-34.0); MEAN CORPUSCULAR HGB CONC 33.8 % (32.0-36.0); MEAN PLATELET VOLUME 7.8 FL (7.0-11.0); MONOCYTE # 0.5 TH/MM3 (0-0.9); NEUT % 48.9 % (16.0-70.0); PLATELET COUNT 155 TH/MM3 (150-450); RED BLOOD COUNT 3.31 MIL/MM3 (4.50-5.90); RED CELL DISTRIBUTION WIDTH 14.8 % (11.6-17.2); WHITE BLOOD COUNT 3.8 TH/MM3 (4.0-11.0)
[2017-12-19 07:07] LABS: INTERNATIONAL NORMALIZED RATIO 1.1 RATIO; PROTHROMBIN TIME - PATIENT 11.2 SEC (9.8-11.6)
[2017-12-19] MEDS ORDERED: FLAX100013 (07:12)
[2017-12-19] MEDS ORDERED: ASPI1TAB57 PO (07:12)
[2017-12-19] MEDS ORDERED: OMEP20TA93 PO (07:12)
[2017-12-19 07:27] LABS: BICARBONATE 27.3 MEQ/L (21.0-32.0); CALCIUM 8.8 MG/DL (8.5-10.1); CREATININE 0.96 MG/DL (0.60-1.30)
[2017-12-19] MEDS ORDERED: KETAMINE HCL 500 MG/10 ML VIAL ONE ×2 (07:31→07:33)
[2017-12-19] MEDS ORDERED: LIDOCAINE HCL 2% 20 ML VIAL ONE (07:44)
[2017-12-19] MEDS ORDERED: VANCOMYCIN 500 MG VIAL ONE (07:44)
--- NOTE | 2017-12-19 09:22 | CATHPROC ---
ZENT HIS Report Study Information Study Number Admission Scheduled Start Study Start [id number] Dec 19 2017 5:28AM 12/19/2017 Dec 19 2017 6:39AM [facility] Service Cardiac Pacer/ICD Admit Source Facility Department Other [facility] - [facility] Physician and Clinical Staff Initial MD Choi, Trevor Bed Spring Maker Cathy Garcia RN Other Anesthesia, THINNER SPRAYER Recorder Leigha Fam ,OLGA LIDIAN Scrub Arleth Martins,SHIP'S MASTER TECH2 Procedures Performed Procedure Location (Site) Vessel Name Lead Insertion Venogram Subclav. Vein (Lft Subclavian Vein Equipment Time Senior Hadoop Developer Description Size Mfg Part Number Used/Scraped [id number] 06:41 MEDLINE INDUSTRIES SUTURE, STRIP PLUS 1/2" * Used *[id number] 06:41 MEDLINE PACER ADHESIVE, MASTISOL 2/3CC 2/3CC 0523-48 Used 06:41 MEDLINE PACER HOLLAND, LIMB * 2530 *[id number] Used [id number] 06:41 MEDLINE PACER PACK, PACER CUSTOM * Used *[id number] 06:41 MEDLINE PACER PEN, SKIN DUAL W/ RULER * Used *[id number] 08:23 [employer]Magin PACER SAFE SHEATH, FR7, 13CM FR 7 [id number] Used 08:23 [employer]Lab MEDICAL PACER SAFE SHEATH, FR7, 13CM FR 7 [id number] Used 08:03 Needle Sponge Count 1 1 Used 08:03 Needle Sponge Count 2 22 Used 08:36 Needle Sponge Count 3 3 Used 08:03 Needle Sponge Count 30 1 Used 08:26 NYCOMED OMNIPAQUE, 350 MG, 50ML 50ML [id number] Used [id number] *[id number] SUTURE, 2-0 VICRYL [SH] ([id number]) SUTURE, 3-0 VICRYL [SH] ([id number]) SUTURE, 4-0 MONOCRYL [PS2] (Y496G) [id number] 06:41 [facility] [facility],WARM AIR CCL * Used *[id number] [facility] PAD, ELECTROSURGICAL 06:41 * [id number] *[id number] Used SURGICAL GROUNDING ORANGE LEAD, CAPSURE FIX NOVUS, 4076-45CM 08:37 VITATRON MEDTRONIC 45CM Used 45CM *[id number] LEAD, CAPSURE FIX NOVUS, 4076-52CM 08:30 VITATRON MEDTRONIC 52CM Used 52CM *[id number] PACEMAKER, ADVISErasto BARTON MRI 08:50 VITATRON MEDTRONIC OEA-DDDR [id number] Used SURESCAN [id number] 06:41 [employer] TUAN. / * Used *46613 Equipment Model, Serial, Lot Number and Expiration Data Description Model Number Serial Number Lot Number Expiration Date LEAD, CAPSURE FIX NOVUS, 45CM 4076-45CM [id number] 09-08-2019 LEAD, CAPSURE FIX NOVUS, 52CM 4076-52cm [id number] 07-18-2019 PACEMAKER, ADVISErasto BARTON MRI [id number] [id number] 05-01-2018 SURESCAN Labs Hgb (g/dl) Hct (%) WBC (l/cumm) Platelets (thousands) 11.60-17.00 35.00-51.00 4.00-11.00 150.00-450.00 10.9 32.3 3.8 155 Glucose (mg/dl) BUN (mg/dl) Creatinine (mg/dl) BUN:Creatinine (1:x) 74.00-106.00 7.00-18.00 0.50-1.30 10.00-20.00 80 16 0.9 17.8 Na (meq/l) K (meq/l) 136.00-145.00 3.50-5.10 140 4 INR (PTT:PT) 0.90-1.10 1.1 CPK-MB (ng/ML) 0.50-3.60 Not Drawn Medication Medication Total Dose (Bolus/Oral) Medication Total Dosage/Unit 2% XYLOCAINE 10 mL Medications (Bolus/Oral) Medication Time Given Dosage/Unit Administered By Reason 2% XYLOCAINE 12/19/2017 8:18:25 AM 10 mL Trevor Choi 10 mL 2% XYLOCAINE given in lab by Trevor Choi in Left chest via Subcutaneous. Ordered by Yasmin Choi. Medication (Drip) Medication Time Given Dosage/Unit Concentration/Unit Diluent (ml) Solution IV Solutions 12/19/2017 7:47:25 AM 50 mL (IV) NaCl .9 IV Solutions given in lab by Anesthesia, THINNER SPRAYER in Right Forearm via Peripheral IV. Pump/Drip Flow usin g NaCl .9. Ordered by Trevor Choi. IV Solutions 12/19/2017 7:48:13 AM 50 mL (IV) NaCl .9 IV Solutions given in lab by Anesthesia, THINNER SPRAYER in Left Antecubital via Peripheral IV. Pump/Drip Flow u sing NaCl .9. Ordered by Trevor Choi. VANCOMYCIN DRIP 12/19/2017 7:42:17 AM 1 g 1 g VANCOMYCIN DRIP given in lab by Anesthesia, THINNER SPRAYER via Peripheral IV. Ordered by Trevor Choi. Initial Case Assessment Cardiovascular HR Rhythm NIBP 74 sr 188/84 Edema Present Skin color Skin None Normal Warm Dry Circulatory - Lower Extremities Color Lower Right Color Lower Left Normal Normal Neurological State Oriented to time-place- Alert Moves all extremities person Respiration - General Respiration Rate SpO2 (%) O2 (lpm) (B/min) 16 99 0 Chronological Log Time Study Chronological Log 7:32:38 Patient arrived via Bed. 7:32:39 Patient Name, D.O.B, / Armband Verified By R.N. 7:32:40 Consent signed by the physician and the patient and verified by the [facility] [facility] [facility] staff. 7:32:41 Pre-op and post- op instructions given; patient acknowledges understanding of instructions. 7:32:42 Verbal Stimulation=2 Physical Stimulation=2 Airway=2 Respiration=2 TOTAL=8. (0=absent, 1=li mited, 2=present) 7:32:51 Anesthesia at bedside. Assumes care of patient. Will 7:32:56 Patient has been NPO for More than 6Hrs. 7:32:57 Skin Breakdown- Generalized red blotches 7:33:07 Patient Warmer Placed on the Table. 7:33:08 Disposable Defibrillator Pads Placed On Patient. 7:33:10 Leatha Prominences Protected 7:33:11 A # 20 IV was noted in the Antecubital (left). Grade = 0 7:33:12 A # 20 IV was noted in the Forearm (right). Grade = 0 7:33:12 History and physical on the chart. 7:42:17 1 g VANCOMYCIN DRIP given in lab by Anesthesia, THINNER SPRAYER via Peripheral IV. Ordered by Trevor Choi. Assessment: Initial Case, HR=74 BPM, Rhythm=sr, PCNG=371/84 mmhg, Edema=None, Color=Normal, Ski n = Warm, Dry Lower Right Extremities: Color=Normal 7:45:15 Lower Left Extremities: Color=Normal Neurological: State=Alert, Ox3, MATTHEWS Respiration: Resp=16 B/min, SpO2=99 %, O2=0 lpm IV Solutions given in lab by Anesthesia, THINNER SPRAYER in Right Forearm via Peripheral IV. Pump/Drip Mejia w using NaCl .9. 7:47:25 Ordered by Trevor Choi. 7:48:08 Table restraints applied according to hospital policy IV Solutions given in lab by Anesthesia, THINNER SPRAYER in Left Antecubital via Peripheral IV. Pump/Drip Flow using NaCl .9. 7:48:13 Ordered by Trevor Choi. 7:48:19 Bovie ground pad applied to: left thigh 7:48:29 2% CHLORHEXIDINE GLUCONATE WASH AND NASAL SWIPE DONE PRIOR TO PROCEDURE. 7:50:56 MD arrived. First Sponge And Instrument Count Done by Arleth Martins, SHIP'S MASTER TECH2. 7:57:41 Hypo's: 3, Sponges: 30, Bovie/scratch: 2 Sutures: 5, Blades: 2, Instruments: 26, Syveck Patches: 0 8:05:24 Bilateral Upper Chest Prepped Times Two. 8:15:28 Reference ECG taken Time Out. Correct patient, procedure, procedure equipment, site and side verified with physician present. Time 8:17:18 concurred by MD, individual staff and THINNER SPRAYER. 8:17:25 Case Start 8:18:25 10 mL 2% XYLOCAINE given in lab by Trevor Choi in Left chest via Subcutaneous. Ordered by Trevor Choi. 8:19:35 Surgical Incision Made. 8:24:48 A pocket was created at the L Upper Chest. 8:25:53 The Subclav. Vein (Lft was manually injected with 10 cc's of contrast. OMNIPAQUE, 350 MG, 50 ML 50ML used. 8:27:53 Vascular access was obtained in the Subclav. Vein (Lft. 8:28:21 A SAFE SHEATH, FR7, 13CM FR 7 was advanced into the Subclav. Vein (Lft using the Percutaneou s technique. 8:29:45 Vascular access was obtained in the Subclav. Vein (Lft. 8:29:52 A SAFE SHEATH, FR7, 13CM FR 7 was advanced into the Subclav. Vein (Lft using the Percutaneou s technique. 8:30:08 A LEAD, CAPSURE FIX NOVUS, 52CM 52CM was inserted and positioned in the RV. 8:34:41 Lead placement verified under fluoroscopy 8:34:44 The RV lead impedance and threshold being tested. 8:36:55 A LEAD, CAPSURE FIX NOVUS, 45CM 45CM was inserted and positioned in the RA. 8:38:22 Lead placement verified under fluoroscopy 8:38:24 The Atrial lead impedance and threshold is being tested. 8:42:01 The Atrial lead was sutured to the fascia. 8:45:22 The RV lead was sutured to the fascia. 8:49:12 A PACEMAKER, TOBI AYOUB OEA-DDDR was connected and placed in the pocket. 8:54:14 Pocket flushed with antibiotic solution 8:54:52 The pocket is being closed. Second Sponge And Instrument Count Done by Arleth Martins, SHIP'S MASTER TECH2. 8:55:41 Hypo's: 3, Sponges: 30, Bovie/scratch: 2 Sutures: 5, Blades: 2, Instruments: 26, Syveck Patches: 0 9:14:27 The pocket was closed. 9:14:30 Case End 9:14:37 Implant Procedure was performed. 9:14:42 A PPM Implant . (Dual) First Sponge And Instrument Count Done by Arleth Martins, SHIP'S MASTER TECH2. 9:14:49 Hypo's: 3, Sponges: 30, Bovie/scratch: 2 Sutures: 5, Blades: 2, Instruments: 26, Syveck Patches: 0 9:16:31 No case complications noted. 9:16:33 Cine recording checked. 9:16:36 Holding Area notified of successful intervention. 9:16:37 Bedside Report will be given. 9:16:39 Implantable Device card placed in patient's chart. 9:20:25 Sterile dressing applied to site 9:24:45 Defibrillator and ground pads removed. Skin intact. 9:26:53 Patient moved to stretcher 9:27:54 A sling was placed on the affected arm. End Study - Contrast Media Used In Study Contrast Total Opened (mL) Total Used (mL) Total Wasted (mL) Omnipaque 25 25 0 End Study - Maximum Contrast Load Max Contrast Load (mL) 468.4 End Study - Radiation Exposure Fluoro Time (minutes) 5.2 End Study - Patient Disposition Complications Transferred To Interventional Outcome No [facility] [facility] [employer] Builder Holding successful
[2017-12-19] MEDS ORDERED: ACETAMINOPHEN 325 MG TAB PO PRN (09:30)
[2017-12-19] MEDS ORDERED: BACITRACIN OINT 0.9 GM PKT TOP PRN (09:30)
[2017-12-19] MEDS ORDERED: traMADol HCL 50 MG TAB PO PRN (09:30)
[2017-12-19] MEDS ORDERED: SODIUM CHLORIDE 0.9% FLUSH 10 ML FLUSH IV FLUSH PRN (09:30)
[2017-12-19] MEDS ORDERED: DO NOT ADM ANY ANTICOAGULANT DRUGS PRN (09:36)
--- NOTE | 2017-12-19 09:54 | RADRPT ---
EXAM DATE/TIME: 12/19/2017 10:42 [facility] COMPARISON: CHEST SINGLE AP, September 18, 2016, 0:26. INDICATIONS : Post pacemaker placement. Evaluate for pneumothorax. MEDICAL HISTORY : Myocardial infarction. Carcinoma, prostate. Hypertension. SURGICAL HISTORY : Pacemaker. Coronary artery stent. TURP. Neurogenic bladder. ENCOUNTER: Initial ACUITY: 1 day PAIN SCORE: 0/10 LOCATION: Bilateral chest FINDINGS: Interval placement of dual-lead pacemaker with leads projecting over the right atrium and right ventr icle. No significant pneumothorax. Cardiomediastinal contours are stable. Remainder of the exam is un changed. CONCLUSION: 1. Pacemaker leads projecting over the right atrium and right ventricle. No pneumothorax. Robert Bermudez MD on December 19, 2017 at 9:50 Board Certified Radiologist. This report was verified electronically.
--- NOTE | 2017-12-19 10:16 | MA ---
cc: Trevor Choi MD, Joanne MD DATE: 12/19/2017 DATE OF PROCEDURE: 12/19/2017 PREOPERATIVE DIAGNOSIS: Symptomatic bradycardia. POSTOPERATIVE DIAGNOSIS: Symptomatic bradycardia. PROCEDURE PERFORMED: Insertion of dual-chamber rate-responsive pacemaker. DESCRIPTION OF PROCEDURE: The patient was given preoperative antibiotics with IV vancomycin. The upper chest was prepped and draped in sterile fashion. Sedation was provided by anesthesia. Using 1% lidocaine for local anesthesia, an incision was made parallel to and below the left clavicle. Using blunt and sharp dissection, a pocket was fashioned above the pectoralis muscle. Contrast injection was given via the left arm and the left subclavian vein was cannulated with 2 guidewires placed using 7-Hungarian peel-away sheaths, the atrial and ventricular leads were both inserted into good position with adequate sensing, pacing thresholds and no diaphragmatic pacing at 10 volts. Both leads were secured to underlying fascia using three 2-0 silk sutures. The leads were connected to the pacemaker generator, which was then positioned on the floor of the pocket with the leads behind it. The generator was secured to the floor of the pocket with a single 2-0 silk suture. The wound was irrigated with antibiotic solution and closed in layers using interrupted 2-0 Vicryl sutures for the deep fascial layers, interrupted 3-0 Vicryl sutures for the subcutaneous layers, followed by running a 4-0 Monocryl stitch and then Steri-Strips and a 4 x 4 dressing. There were no complications. The pacemaker is a Medtronic [id number], serial number [id number]. The atrial lead is a Medtronic 4076, length 45 cm, serial number [id number] with a P-wave of 3.8 millivolts and a resistance of 901 ohms, threshold of 1.0 volts. The ventricular lead is a Medtronic 4076, length 52 cm, serial number [id number] with an R-wave of 5.9, impedance of 892 ohms and a threshold of 0.5 volts. A stat chest x-ray is pending. MD PATY Sams/TY , 09:47 AM , 10:15 AM
[2017-12-19] MEDS: SUCRALFATE 1 GM/10 ML CUP PO SCH ×2 (11:00→16:45)
[2017-12-19] MEDS ORDERED: PROPOFOL 200 MG/20 ML AMP IV ONE (12:00)
[2017-12-19] MEDS ORDERED: LIDOCAINE HCL 1% PF 5 ML SYRINGE OTHER ONE (12:00)
[2017-12-19] MEDS ORDERED: ePHEDrine/NS 25 MG/5 ML SYRINGE IV ONE (12:00)
[2017-12-19] MEDS: GALANTAMINE HYDROBROMIDE 4 MG TAB PO SCH (20:28)
[2017-12-19] MEDS: SODIUM CHLORIDE 0.9% FLUSH 10 ML FLUSH IV FLUSH SCH (20:29)
[2017-12-19] MEDS ORDERED: LATANOPROST 0.005% OPHT SOLN 2.5 ML BTL EACH EYE SCH (21:00)
[2017-12-19] MEDS ORDERED: ATORVASTATIN 20 MG TAB PO SCH (21:00)
[2017-12-19] MEDS ORDERED: BRINZOLAMIDE OPTH EACH EYE SCH (21:00)
[2017-12-19] MEDS ORDERED: TAMSULOSIN HCL 0.4 MG CAP PO SCH (21:00)
--- NOTE | 2017-12-19 21:24 | EKG ---
Date Performed: 12/19/2017 Time Performed: 07:04:18 PTAGE: 87 years EKG: Sinus bradycardia with PVC(s) with 1st degree A-V block. Poor R wave progression - probable normal variant Since the previous tracing, no significant change noted Abnormal ECG PREVIOUS TRACING ; 08/25/2017 @09.16 DOCTOR: Deven Santamaria Interpretating Date/Time 12/19/2017 16:55:43
--- NOTE | 2017-12-19 21:30 | EKG ---
Date Performed: 12/19/2017 Time Performed: 09:52:43 PTAGE: 87 years EKG: Sinus rhythm WITH FIRST DEGREE AV BLOCK WITH FREQUENT VENTRICULAR PREMATURE COMPLEXES BORDERLINE LEFT AXIS DEVIAT ION ABNORMAL ECG Since the PREVIOUS TRACING , no significant change noted PREVIOUS TRACIN12/19/2017 07.04 DOCTOR: Deven Santamaria Interpretating Date/Time 12/19/2017 16:55:55
[2017-12-20] VITALS (12 sets, daily range): BP systolic 126–143; BP diastolic 70–81; PULSE 58–78; RESP 20; TEMP 98.5–98.8; O2SAT 95–97
[2017-12-20] MEDS: NS 1000 ML IV SCH (06:00)
[2017-12-20] MEDS: SUCRALFATE 1 GM/10 ML CUP PO SCH (07:17)
[2017-12-20] MEDS: GALANTAMINE HYDROBROMIDE 4 MG TAB PO SCH (07:36)
[2017-12-20] MEDS: SODIUM CHLORIDE 0.9% FLUSH 10 ML FLUSH IV FLUSH SCH (07:36)
--- NOTE | 2017-12-20 08:31 | PD.CARD.PN ---
Subjective Subjective Remarks Pt feels well, wants to go home Objective Medications Current Medications Medications (Trade) Dose Ordered Sig/Aparna Route Start Time Stop Time Status Last Admin ([facility]) NO Heparin, Loven... UNSCH PRN .XX 12/19/17 06:00 12/23/17 05:59 Sodium Chloride 1,000 ml @ 30 mls/hr Q24H IV 12/19/17 06:00 12/19/17 06:00 Vancomycin HCl 1000 mg/Sodium Chloride 250 ml @ 250 mls/hr PARTS FABRICATOR IV 12/19/17 06:00 12/22/17 05:59 12/19/17 07:42 (Bactroban Nasal 2% Oint) 1 applic PARTS FABRICATOR NASAL 12/19/17 06:00 12/22/17 05:59 (Chlorhexidine 2% Cloth) 3 pack PARTS FABRICATOR TOPICAL 12/19/17 06:00 12/22/17 05:59 12/19/17 07:02 Lactated Ringer's 1,000 ml @ 30 mls/hr Q24H PRN IV 12/19/17 06:00 12/22/17 05:59 Sodium Chloride 500 ml @ 30 mls/hr [id number] PRN IV 12/19/17 06:00 12/22/17 05:59 (Lopressor) 25 mg PARTS FABRICATOR PRN PO 12/19/17 06:00 12/22/17 05:59 (Betadine 5% Antisepsis Kit) 1 applic PARTS FABRICATOR PRN EACH NARE 12/19/17 06:00 12/22/17 05:59 (Chlorhexidine 2% Cloth) 3 pack PARTS FABRICATOR PRN TOPICAL 12/19/17 06:00 12/22/17 05:59 (NovoLIN R INJ) See Protocol Table ... PARTS FABRICATOR PRN SQ 12/19/17 06:00 12/22/17 05:59 (Ultram) 25 mg Q4H PRN PO 12/19/17 09:30 (Bacitracin Oint Packet) 0.9 gm UNSCH PRN TOP 12/19/17 09:30 (NS Flush) 2 ml BID IV FLUSH 12/19/17 21:00 12/20/17 07:36 (NS Flush) 2 ml UNSCH PRN IV FLUSH 5/4/18 09:30 (Tylenol) 325 mg Q4H PRN PO 12/19/17 09:30 (Ecotrin Ec) 81 mg DAILY PO 12/20/17 09:00 12/20/17 07:36 (Lipitor) 20 mg HS PO 12/19/17 21:00 12/19/17 20:28 (Razadyne) 4 mg BID PO 12/19/17 21:00 12/20/17 07:36 (Ocuvite) 1 tab DAILY PO 12/20/17 09:00 12/20/17 07:36 (Carafate Liq) 1 gm TID@0700,1100,1600 PO 12/19/17 11:00 12/20/17 07:17 (Flomax) 0.4 mg HS PO 12/19/17 21:00 12/19/17 20:28 (Xalatan 0.005% Opth Soln) 1 drop HS EACH EYE 12/19/17 21:00 12/19/17 20:29 Patient Own Medication PT OWN MED: (Brinzolamide Opth Dr... BID EACH EYE 12/19/17 21:00 Future Hold (Protonix) 20 mg DAILY PO 12/20/17 09:00 12/20/17 07:36 ([facility]) ALL NURSING DEPARTME... UNSCH PRN .XX 12/19/17 09:36 12/20/17 09:35 Vital Signs / I&O Vital Signs Date Time Temp Pulse Resp B/P (MAP) Pulse Ox O2 Delivery O2 Flow Rate FiO2 12/20/17 06:00 60 12/20/17 05:50 66 12/20/17 04:00 98.8 71 20 143/81 (101) 95 12/20/17 04:00 72 12/20/17 03:00 66 12/20/17 02:00 60 12/20/17 01:00 58 12/20/17 00:00 59 12/20/17 00:00 98.7 60 20 135/70 (91) 97 12/19/17 23:00 60 12/19/17 22:00 60 12/19/17 21:00 58 12/19/17 20:00 98.7 62 20 145/76 (99) 99 12/19/17 20:00 63 5/4/18 19:00 66 12/19/17 18:00 64 12/19/17 17:00 66 12/19/17 16:00 64 12/19/17 15:16 97.8 47 17 123/63 (83) 97 12/19/17 15:00 68 12/19/17 14:00 67 12/19/17 13:30 98.0 58 18 135/63 (87) 96 12/19/17 10:27 94 Nasal Cannula 2.00 12/19/17 10:10 83 14 129/73 (91) 95 Nasal Cannula 2 12/19/17 10:00 86 14 128/86 (100) 94 Nasal Cannula 2 12/19/17 09:45 88 14 125/64 (84) 95 Nasal Cannula 2 12/19/17 09:37 97.9 91 14 141/65 (90) 94 Nasal Cannula 2 I/O 12/19/17 12/19/17 12/19/17 12/20/17 12/20/17 12/20/17 07:00 15:00 23:00 07:00 15:00 23:00 Intake Total 480 ml 240 ml Output Total 801 ml 600 ml Balance -321 ml -360 ml Intake Oral 480 ml 240 ml Output Urine Total 800 ml 600 ml Stool Total 1 ml # Bowel Movements 1 Physical Exam GENERAL: This is a well-nourished, well-developed patient, in no apparent distress. CARDIOVASCULAR: Regular rate and rhythm without murmurs, gallops, or rubs. RESPIRATORY: Clear to auscultation. Breath sounds equal bilaterally. No wheezes , rales, or rhonchi. GASTROINTESTINAL: Abdomen soft, non-tender, nondistended. Normal active bowel sounds MUSCULOSKELETAL: Extremities without clubbing, cyanosis, or edema. NEURO: Alert & Oriented x4 to person, place, time, situation. Moves all ext x4 Imaging Last Impressions Chest X-Ray 12/19/17 0000 Signed Impressions: Service Date/Time: Tuesday, December 19, 2017 10:42 - CONCLUSION: 1. Pacemaker leads projecting over the right atrium and right ventricle. No pneumothorax. Robert Bermudez MD Assessment and Plan Problem List: (1) Pacemaker ICD Codes: Z95.0 - Presence of cardiac pacemaker Plan: no ptx, pacemaker check shows normal function. Assessment and Plan Ok to d/c home Tripp Ann MD December 20, 2017 08:31
[2017-12-20] MEDS ORDERED: PANTOPRAZOLE SOD 20 MG DELAYED RELEASE TAB PO SCH (09:00)
[2017-12-20] MEDS ORDERED: ASPIRIN EC 81 MG TABEC PO SCH (09:00)
[2017-12-20] MEDS ORDERED: MULTIVITAMIN-OPHTHALMIC 1 TAB PO SCH (09:00)
== END 2017-12-20 10:30 | disposition home or self-care (01) ==
LOC: HDOC 05:28 → HDIC 05:28 → HCIS 14:09 → HDOC 12-20 10:30
PROVIDERS: ATTEND Internal Medicine Cardiovascular Disease
DX: I49.5 Sick sinus syndrome (principal); I44.0 Atrioventricular block, first degree; I25.10 Atherosclerotic heart disease of native coronary artery without angina pectoris; E78.5 Hyperlipidemia, unspecified; R42 Dizziness and giddiness; R79.1 Abnormal coagulation profile; I83.93 Asymptomatic varicose veins of bilateral lower extremities; Z79.82 Long term (current) use of aspirin; Z82.49 Family history of ischemic heart disease and other diseases of the circulatory system
CPT/HCPCS: 00530; 33208; 71045; 80048; 85025; 85610; 85730; 93005; C1785; C1898; J3370; J7030; J7050; J3010; Q9967

== ENCOUNTER 2018-02-11 09:54 | Inpatient (IN) ==
[2018-02-14] MEDS ORDERED: Haloperidol Inj 5 MG/ML Ampul IV.PUSH PRN (20:57)
[2018-02-15] MEDS ORDERED: LORazepam 1 MG Tablet PO PRN (00:01)
[2018-02-15] MEDS ORDERED: Bisacodyl 10 MG Supp RECTAL PRN (00:01)
[2018-02-15] MEDS ORDERED: Acetaminophen 325 MG Tablet PO PRN ×2 (00:01)
[2018-02-15] MEDS ORDERED: Naloxone Inj 0.4 MG/ML Vial IV.PUSH PRN (00:01)
[2018-02-15] MEDS ORDERED: LORazepam 1 MG Tablet ONE (01:29)
[2018-02-15] MEDS ORDERED: Heparin - SQ 10,000 UNITS/ML Vial SQ ONE (03:24)
[2018-02-15] MEDS: Heparin - SQ 10,000 UNITS/ML Vial SQ SCH ×2 (05:04→18:29)
[2018-02-15] MEDS: Sod Chloride 0.9% Inj 1,000 ML IV.SIG SCH (05:32)
[2018-02-15] MEDS: Vitamins A,C,E/Lutein/Minerals Tablet PO SCH (08:37)
[2018-02-15] MEDS: Pantoprazole Sodium 20 MG DR Tablet PO SCH (08:37)
[2018-02-15] MEDS ORDERED: Senna/Docusate Sodium 8.6/50 MG Tablet PO SCH (09:00)
[2018-02-15] MEDS: QUEtiapine 25 MG Tablet PO SCH ×2 (11:29→20:21)
[2018-02-15] MEDS ORDERED: QUEtiapine 25 MG Tablet PO SCH (12:00)
--- NOTE | 2018-02-15 15:18 | P.PN ---
Subjective Interval history: Patient is having worsening symptoms today, he is not very communicative, he is awake but he close his eyes holding his legs, noncoherent, his significant other and a friend with her at the bedside I discussed with the neurologist Dr. Newman he recommended trying to arrange for good sleeping environment today, nursing to do sleeping charting, turned TV of a 10, psychiatry consult appreciated recommended Seroquel Physical Exam Vital signs: Vital Signs 02/15/18 00:00 02/15/18 04:00 02/15/18 08:56 Temperature 97.5 F L 98.2 F 98.1 F Pulse Rate 92 H 87 45 L Respiratory Rate 22 18 18 Blood Pressure 122/56 L 128/64 133/68 Pulse Oximetry 98 98 95 02/15/18 12:25 Temperature 97.8 F Pulse Rate 58 L Respiratory Rate 18 Blood Pressure 98/50 L Pulse Oximetry 98 Intake & Output 02/14/18 02/15/18 02/15/18 18:59 06:59 18:59 Intake Total 355 / 355 Balance 355 / 355 Weight 88.1 kg Intake: Oral 355 / 355 Other: # Voids 3 Narrative: GENERAL: This is a well-nourished, well-developed patient, in no apparent distress. CARDIOVASCULAR: RRR, no gallops, or rubs. RESPIRATORY: Fair air entry bilaterally. No W, R, or R GASTROINTESTINAL: Abdomen soft, non-tender, nondistended. Positive bowel sounds MUSCULOSKELETAL: Extremities without clubbing, cyanosis, or edema. Pedal pulses appreciated NEUROLOGICAL: Patient today is confused closing his eyes holding his legs, but he is able to moves all extremity. Normal speech.no focal neurological deficit Results - Labs CBC & Chem 7: 02/11/18 09:45 02/13/18 12:30 Laboratory Results - last 24 hr 02/11/18 02/11/18 02/13/18 09:45 11:00 12:30 Sodium 140 Potassium 4.1 Chloride 105 Carbon Dioxide 25.2 Anion Gap 10 BUN 17 Creatinine 1.20 Estimated GFR 57 L Random Glucose 70 L Calcium 9.3 Total Bilirubin 0.6 AST 17 ALT 23 Alkaline Phosphatase 98 Ammonia Total Protein 8.4 H Albumin 4.1 Triglycerides 71 Cholesterol 96 L LDL Cholesterol 48 HDL Cholesterol 34.0 L Cholesterol/HDL Ratio 2.82 Vitamin B12 568 TSH 3rd Generation 4.090 H Urine Opiates Screen NEG Ur Barbiturates Screen NEG Ur Amphetamines Screen NEG U Benzodiazepines Scrn NEG Urine Cocaine Screen NEG U Cannabinoids Screen NEG 02/13/18 12:30 Sodium Potassium Chloride Carbon Dioxide Anion Gap BUN Creatinine Estimated GFR Random Glucose Calcium Total Bilirubin AST ALT Alkaline Phosphatase Ammonia 18 Total Protein Albumin Triglycerides Cholesterol LDL Cholesterol HDL Cholesterol Cholesterol/HDL Ratio Vitamin B12 TSH 3rd Generation Urine Opiates Screen Ur Barbiturates Screen Ur Amphetamines Screen U Benzodiazepines Scrn Urine Cocaine Screen U Cannabinoids Screen Assessment and Plan - Plan A/P: This is a 87-year-old male who was brought in as a stroke alert when he developed expressive aphasia which resolved after less than an hour. TIA. Patient neurologically stabilized started on Plavix as he failed on aspirin. Continue IV fluids cautious BP control with history of hypotension. Reviewed echocardiogram EF 60%, EEG Mild diffuse beta slowing down otherwise unremarkable , lipid profile reviewed. Neurology following, continue PT and ST consultation. Neurochecks and seizure precautions. History of symptomatic bradycardia status post pacemaker. Patient continues to have symptoms of dizziness and hypotension. Pacemaker interrogation Multiple medical conditions of coronary artery status post stent, dementia, hyperlipidemia, glaucoma, macular degeneration legally blind on the left eye and prostate cancer status post cryosurgery. Continue outpatient medications. DVT prophylaxis with SCD and subcu heparin 02/13: Acute visual hallucination, no confabulation him and his significant other completely denied any alcohol abuse, we call out to the neurologist he just recommended stopping the galantamine and monitor, she doubt underlying alcoholism as a culprit 02/14: Patient continued to have visual hallucination, even though he is still fairly oriented with little difficulty to person place and time he Discussed with him and with his significant other as well as the nurse and Dr. Moore neurologist Plan to try Haldol and psychiatry consultation The significant other refused to continue applying CIWA protocol with Ativan 02/15:Patient is having worsening symptoms today, he is not very communicative, he is awake but he close his eyes holding his legs, noncoherent, his significant other and a friend with her at the bedside I discussed with the neurologist Dr. Newman he recommended trying to arrange for good sleeping environment today, nursing to do sleeping charting, turned TV of a 10, psychiatry consult appreciated recommended Seroquel
[2018-02-15] MEDS: Latanoprost 0.005% Opth Drops 2.5 ML Bottle EACH EYE SCH (20:24)
[2018-02-15] MEDS ORDERED: QUEtiapine 25 MG Tablet PO ONE (21:47)
[2018-02-16] MEDS: Pantoprazole Sodium 20 MG DR Tablet PO SCH (10:59)
[2018-02-16] MEDS: Vitamins A,C,E/Lutein/Minerals Tablet PO SCH (10:59)
[2018-02-16] MEDS: Heparin - SQ 10,000 UNITS/ML Vial SQ SCH ×2 (11:00→17:46)
--- NOTE | 2018-02-16 14:43 | P.PNIM ---
Subjective Interval history: Patient today looks little better is aware of person and place but not completely for the time Again I had a lengthy discussion with the significant other who is very upset that the patient is not getting better with the Seroquel and she requested to hold this medication, she is saying that his symptoms getting worse because of the Seroquel even though he had a hallucination prior to it. She was trying to tell me we should not give him narcotic so I told her Seroquel is not her narcotic needs her Ativan is. I explained to her the different N classification between antipsychotic, narcotic and benzodiazepine. 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 The significant other continue to show that she is not happy with all this explanation, therefore I explained to her that I have been trying to get the neurologist to follow-up and see the patient and I will do that now by trying to make a direct call again. The Seroquel was prescribed by the psychiatry. 2 days ago I talked to Dr. Moore the neurologist regarding his worsening mentation and hallucination, she recommended psych consultation and Haldol, I also talked yesterday to Dr. Newman was covering for Dr. Moore over the phone and explained to him the worsening in the mentation and he recommended sleeping charting switching TV off at 10:00 and making sure patient gets good sleep. I personally requested a neurology follow-up from the 2 attending but unfortunately he did not get away to see the patient today so the girlfriend/ significant other was and happy she was also unhappy about the response from the nurses on the floor and that the patients did not get cleaned up since he came . I went to the charge nurse and personally requested active call to the neurologist and psychiatrist to do a follow-up today to assess the patient and to hold the Seroquel. Later on I was told in the MDR meeting that the psychiatrist asked for a new consult request , when I went to place it , i found that the pt was transfered from my service to service per the significant other request . Physical Exam Vital signs: Vital Signs 02/15/18 16:19 07/01/18 20:00 02/16/18 00:01 Temperature 98.0 F 98 F 98.2 F Pulse Rate 83 72 70 Respiratory Rate 18 18 20 Blood Pressure 127/68 167/78 H 140/77 Pulse Oximetry 97 96 02/16/18 04:00 02/16/18 08:00 02/16/18 11:10 Temperature 98.6 F 97.7 F Pulse Rate 73 65 64 Respiratory Rate 20 16 Blood Pressure 110/50 L 136/61 Pulse Oximetry 96 97 02/16/18 12:00 Temperature 98.1 F Pulse Rate 76 Respiratory Rate 16 Blood Pressure 116/67 Pulse Oximetry 97 Intake & Output 02/15/18 02/16/18 02/16/18 18:59 06:59 18:59 Intake Total 255 / 255 Output Total 700 / 700 Balance -445 / -445 Intake: Oral 255 / 255 Output: Urine 700 / 700 Other: # Voids 1 Results - Labs CBC & Chem 7: 02/11/18 09:45 02/13/18 12:30 Assessment and Plan - Plan A/P: This is a 87-year-old male who was brought in as a stroke alert when he developed expressive aphasia which resolved after less than an hour. TIA. Patient neurologically stabilized started on Plavix as he failed on aspirin. Continue IV fluids cautious BP control with history of hypotension. Reviewed echocardiogram EF 60%, EEG Mild diffuse beta slowing down otherwise unremarkable , lipid profile reviewed. Neurology following, continue PT and ST consultation. Neurochecks and seizure precautions. History of symptomatic bradycardia status post pacemaker. Patient continues to have symptoms of dizziness and hypotension. Pacemaker interrogation Multiple medical conditions of coronary artery status post stent, dementia, hyperlipidemia, glaucoma, macular degeneration legally blind on the left eye and prostate cancer status post cryosurgery. Continue outpatient medications. DVT prophylaxis with SCD and subcu heparin 02/13: Acute visual hallucination, no confabulation him and his significant other completely denied any alcohol abuse, we call out to the neurologist he just recommended stopping the galantamine and monitor, she doubt underlying alcoholism as a culprit 02/14: Patient continued to have visual hallucination, even though he is still fairly oriented with little difficulty to person place and time he Discussed with him and with his significant other as well as the nurse and Dr. Moore neurologist Plan to try Haldol and psychiatry consultation The significant other refused to continue applying CIWA protocol with Ativan 02/15:Patient is having worsening symptoms today, he is not very communicative, he is awake but he close his eyes holding his legs, noncoherent, his significant other and a friend with her at the bedside I discussed with the neurologist Dr. Newman he recommended trying to arrange for good sleeping environment today, nursing to do sleeping charting, turned TV of a 10, psychiatry consult appreciated recommended Seroquel 02/16: Still with confusion, discussion with significant other as mentioned above in subjective, put another call for psychiatrist and neurologist, hold Seroquel per significant other request
--- NOTE | 2018-02-16 17:43 | P.PN ---
Subjective Interval history: Friend at bedside significant other States she has been with him 17yrs but last 2 yrs she has been his caregiver. Has been on galantamine since last fall w/o any issues. Has not slept in last couple of day?? States he eats. Gets violent with ambien,melatonin,restoril,agitated with ativan- per friend. Physical Exam Vital signs: Vital Signs 02/15/18 20:00 02/16/18 00:01 02/16/18 04:00 Temperature 98 F 98.2 F 98.6 F Pulse Rate 72 70 73 Respiratory Rate 18 20 20 Blood Pressure 167/78 H 140/77 110/50 L Pulse Oximetry 96 96 02/16/18 08:00 02/16/18 11:10 02/16/18 12:00 Temperature 97.7 F 98.1 F Pulse Rate 65 64 76 Respiratory Rate 16 16 Blood Pressure 136/61 116/67 Pulse Oximetry 97 97 02/16/18 15:50 Temperature 98.1 F Pulse Rate 86 Respiratory Rate 18 Blood Pressure 122/70 Pulse Oximetry 95 Intake & Output 02/15/18 02/16/18 02/16/18 18:59 06:59 18:59 Intake Total 255 / 255 Output Total 700 / 700 Balance -445 / -445 Intake: Oral 255 / 255 Output: Urine 700 / 700 Other: # Voids 1 - Routine HEENT Exam Head: Present: normocephalic - Routine Neurological Exam Present: alert, CN II-XII intact, normal reflexes, moving all extremities, normal tone, normal speech. Absent: oriented X3 - Detailed Neurological Exam: Coma Scale Eye Opening: Spontaneous Verbal Response: Confused Motor Response: Obey commands Michael Coma Scale Total: 14 Results - Labs CBC & Chem 7: 02/11/18 09:45 02/13/18 12:30 - Imaging ct neg cta cow neg cta ca neg eeg mild slowing echo nl ef 55-60% Assessment and Plan - Assessment (1) Dementia Code(s): F03.90 - Unspecified dementia without behavioral disturbance Status: Acute (2) Hallucinations Code(s): R44.3 - Hallucinations, unspecified Status: Acute (3) TIA (transient ischemic attack) Code(s): G45.9 - Transient cerebral ischemic attack, unspecified Status: Acute (4) Insomnia Code(s): G47.00 - Insomnia, unspecified Status: Acute - Plan D/W SIGNIFICANT OTHER CHECK F/U CT BRAIN TRIAL OF TRAZODONE 50 MG HS CASE MANAGEMENT TO ASS'T WITH POSSIBLE REHAB./DC PLANNING. HE MAY NOT BE ABLE TO GO HOME WITH FRIEND SHE MAY NOT BE ABLE TO CARE FOR HIM IF HE WANDERS GETS AGGITATED ETC. D/W FRIEND ALL PLANS ABOVE. Discussed Condition With: significant other
[2018-02-16] MEDS: QUEtiapine 25 MG Tablet PO SCH (17:46)
[2018-02-16] MEDS: traZODone 50 MG Tablet PO SCH (20:12)
[2018-02-17] MEDS: Latanoprost 0.005% Opth Drops 2.5 ML Bottle EACH EYE SCH ×2 (00:38→20:31)
[2018-02-17] MEDS: Vitamins A,C,E/Lutein/Minerals Tablet PO SCH (08:22)
[2018-02-17] MEDS: Pantoprazole Sodium 20 MG DR Tablet PO SCH (08:25)
[2018-02-17] MEDS: Heparin - SQ 10,000 UNITS/ML Vial SQ SCH ×2 (08:26→18:01)
[2018-02-17] MEDS: Sod Chloride 0.9% Inj 1,000 ML IV.SIG SCH ×2 (08:41→18:03)
[2018-02-17] MEDS ORDERED: QUEtiapine 25 MG Tablet PO ONE (14:12)
[2018-02-17] MEDS: traZODone 50 MG Tablet PO SCH (20:28)
[2018-02-18] MEDS: Sod Chloride 0.9% Inj 1,000 ML IV.SIG SCH ×2 (00:49→18:14)
--- NOTE | 2018-02-18 01:21 | P.PNIM ---
Subjective Interval history: Deferred entry - patient seen on 02/17/18 Patient seems to be confused. As per RN and partner at bedside - patient having halucinations. Physical Exam Vital signs: Vital Signs 02/17/18 04:00 02/17/18 08:00 02/17/18 09:59 Temperature 97.4 F L 97.9 F Pulse Rate 62 75 61 Respiratory Rate 18 18 Blood Pressure 120/57 L 131/69 Pulse Oximetry 97 96 02/17/18 12:00 02/17/18 16:00 02/17/18 16:26 Temperature 97.8 F 98 F Pulse Rate 81 78 76 Respiratory Rate 18 18 Blood Pressure 116/54 L 164/74 H Pulse Oximetry 93 L 98 02/17/18 20:29 02/18/18 00:00 Temperature 98.2 F 98.2 F Pulse Rate 83 81 Respiratory Rate 14 Blood Pressure 135/73 125/70 Pulse Oximetry 97 95 Intake & Output 02/17/18 02/17/18 02/18/18 06:59 18:59 06:59 Other: # Voids 3 2 - Constitutional mild distress - Routine HEENT Exam Head: Present: normocephalic, atraumatic Eye: Present: EOMI, PERRL, normal accommodation - Routine Neck Exam Present: supple - Routine Respiratory Exam Present: CTA bilaterally - Routine Cardiovascular Exam Present: RRR, S1, S2 - Routine Abdominal Exam Present: soft, normoactive bowel sounds - Routine Neurological Exam Present: alert, altered mental status - Routine Psychiatric Exam Present: auditory hallucinations, visual hallucinations Results - Labs CBC & Chem 7: 02/11/18 09:45 02/13/18 12:30 Assessment and Plan - Plan This is a 87-year-old male who was brought in as a stroke alert when he developed expressive aphasia which resolved after less than an hour. 1. TIA. Continue aspirin and Plavix. Neurology consulted. Reviewed echocardiogram which showed an EF of 60%. EEG mild diffuse beta slowing down otherwise unremarkable. Lipid profile reviewed -total cholesterol 96 and LDL cholesterol 48. Continue neuro checks and seizure precautions. 2. Dementia with hallucinations and confusion. Unclear etiology. The patient was seen by psychiatry on 02/14. As per psychiatry recommendations cognitive impairment likely possibly related to dementia related to alcohol misuse. Will consult neuropsychiatry. Small dose of Seroquel was recommended, however patient significant other refused the patient to have Seroquel. Patient also was administered Haldol and IV Ativan which made him very lethargic. The patient Seroquel was discontinued by prior physician following the patient. I had lengthy discussion with patient's significant other and patient's son. I recommended starting cervical again at a dose of 25 mg p.o. twice daily and see what the effects are. Consult neuropsychology. 3. CAD status post stent Patient is chest pain-free. Troponin negative 1. Continue aspirin and Plavix. 4. History of symptomatic bradycardia status post pacemaker. Monitor on telemetry. No arrhythmias reported. EKG on admission and reviewed by me showed an atrial paced rhythm at a rate of 65 bpm. 5. Hyperlipidemia Lipid profile reviewed. Hyperlipidemia seems to be diet controlled as patient is not on statins as an outpatient. 6. DVT prophylaxis SCDs and heparin subcutaneous. I called the patient's son and had a lengthy discussion about the patient's condition. The patient's son plan is to have the patient picked up by his other siblings to transport him back to [facility] were all his sons are. Code Status: Full code Discharge Planning: Continue to monitor the medical floor. The patient still very confused requiring restraints for safety.
[2018-02-18] MEDS: Heparin - SQ 10,000 UNITS/ML Vial SQ SCH ×2 (06:15→18:00)
[2018-02-18] MEDS: Vitamins A,C,E/Lutein/Minerals Tablet PO SCH (09:07)
[2018-02-18] MEDS: Pantoprazole Sodium 20 MG DR Tablet PO SCH (09:07)
[2018-02-18] MEDS: QUEtiapine 25 MG Tablet PO SCH ×2 (13:02→21:17)
--- NOTE | 2018-02-18 16:42 | P.PNIM ---
Subjective Interval history: The patient still confused Patient does nto answe coherently Physical Exam Vital signs: Vital Signs 02/17/18 20:29 02/18/18 00:00 02/18/18 04:00 Temperature 98.2 F 98.2 F 98.2 F Pulse Rate 83 81 91 H Respiratory Rate 14 16 Blood Pressure 135/73 125/70 134/63 Pulse Oximetry 97 95 98 02/18/18 05:00 02/18/18 08:00 02/18/18 12:00 Temperature 98 F 98.1 F Pulse Rate 90 84 81 Respiratory Rate 16 17 Blood Pressure 145/65 H 136/66 Pulse Oximetry 97 98 Intake & Output 02/17/18 02/18/18 02/18/18 18:59 06:59 18:59 Other: # Voids 2 # Incontinent Voids 2 Narrative: - Constitutional mild distress - Routine HEENT Exam Head: Present: normocephalic, atraumatic Eye: Present: EOMI, PERRL, normal accommodation - Routine Neck Exam Present: supple - Routine Respiratory Exam Present: CTA bilaterally - Routine Cardiovascular Exam Present: RRR, S1, S2 - Routine Abdominal Exam Present: soft, normoactive bowel sounds - Routine Neurological Exam Present: alert, altered mental status - Routine Psychiatric Exam Present: confused, responds incoherently Results - Labs CBC & Chem 7: 02/11/18 09:45 02/13/18 12:30 Assessment and Plan - Plan This is a 87-year-old male who was brought in as a stroke alert when he developed expressive aphasia which resolved after less than an hour. 1. TIA. Continue aspirin and Plavix. Neurology consulted. Reviewed echocardiogram which showed an EF of 60%. EEG mild diffuse beta slowing down otherwise unremarkable. Lipid profile reviewed -total cholesterol 96 and LDL cholesterol 48. Continue neuro checks and seizure precautions. 2. Dementia with hallucinations and confusion. Unclear etiology. The patient was seen by psychiatry on 02/14. As per psychiatry recommendations cognitive impairment likely possibly related to dementia related to alcohol misuse. Will consult neuropsychiatry. Small dose of Seroquel was recommended, however patient significant other refused the patient to have Seroquel. Patient also was administered Haldol and IV Ativan which made him very lethargic. The patient Seroquel was discontinued by prior physician following the patient. I had lengthy discussion with patient's significant other and patient's son. I recommended starting cervical again at a dose of 25 mg p.o. twice daily and see what the effects are. / Consult neuropsychology, will start the patient on high-dose IV thiamine and resume home galantamine. 3. CAD status post stent Patient is chest pain-free. Troponin negative 1. Continue aspirin and Plavix. 4. History of symptomatic bradycardia status post pacemaker. Monitor on telemetry. No arrhythmias reported. EKG on admission and reviewed by me showed an atrial paced rhythm at a rate of 65 bpm. 5. Hyperlipidemia Lipid profile reviewed. Hyperlipidemia seems to be diet controlled as patient is not on statins as an outpatient. 6. DVT prophylaxis SCDs and heparin subcutaneous. Discharge Planning: Continue to monitor the medical floor. The patient still very confused requiring restraints for safety.
[2018-02-18] MEDS ORDERED: Thiamine Inj 500 MG in Sodium Chlor 0.9% Inj 500 ML IV.SIG SCH (18:00)
[2018-02-18] MEDS: traZODone 50 MG Tablet PO SCH (21:16)
[2018-02-18] MEDS: Latanoprost 0.005% Opth Drops 2.5 ML Bottle EACH EYE SCH (21:39)
[2018-02-19] MEDS: Sod Chloride 0.9% Inj 1,000 ML IV.SIG SCH ×2 (03:57→21:31)
[2018-02-19] MEDS: Heparin - SQ 10,000 UNITS/ML Vial SQ SCH ×2 (06:11→17:38)
[2018-02-19] MEDS: Vitamins A,C,E/Lutein/Minerals Tablet PO SCH (09:41)
[2018-02-19] MEDS: QUEtiapine 25 MG Tablet PO SCH (09:41)
[2018-02-19] MEDS: Pantoprazole Sodium 20 MG DR Tablet PO SCH (09:41)
[2018-02-19 10:49] LABS: Baso % (Auto) 0.5 % (0.0-2.0); Eos % (Auto) 1.1 % (0.0-4.0); Hematocrit 37.5 % (39.0-51.0); Hemoglobin 12.5 gm/dL (13.0-17.0); Lymph # (Auto) 1.2 th/mm3 (1.0-4.8); Lymph % (Auto) 27.1 % (9.0-44.0); Mean Corpuscular HGB Conc 33.2 % (32.0-36.0); Mean Corpuscular Hemoglobin 32.1 pg (27.0-34.0); Mean Corpuscular Volume 96.6 fL (80.0-100.0); Mono # (Auto) 0.7 th/mm3 (0.0-0.9); Neut # (Auto) 2.6 th/mm3 (1.8-7.7); Neut % (Auto) 56.3 % (16.0-70.0); Platelet Count 162 th/mm3 (150-450); Red Blood Count 3.89 mil/mm3 (4.50-5.90); Red Cell Distribution Width 15.1 % (11.6-17.2); White Blood Count 4.6 th/mm3 (4.0-11.0)
[2018-02-19 11:11] LABS: Albumin 3.5 g/dL (3.4-5.0); Anion Gap 13 meq/L (5-15); Aspartate Aminotransferase 27 U/L (15-37); Blood Urea Nitrogen 23 mg/dL (7-18); Calcium 9.4 mg/dL (8.5-10.1); Carbon Dioxide 22.4 meq/L (21.0-32.0); Chloride 106 meq/L (98-107); Glomerular Filtration Rate 72 mL/min (>89); Magnesium 2.5 mg/dL (1.5-2.5); Sodium 141 meq/L (136-145)
[2018-02-19 11:12] LABS: Glucose,Random 89 mg/dL (74-106)
[2018-02-19 11:19] LABS: Alanine Aminotransferase 34 U/L (12-78); Alkaline Phosphatase 97 U/L (45-117); Phosphorus 3.6 mg/dL (2.5-4.9); Total Protein 7.8 g/dL (6.4-8.2)
--- NOTE | 2018-02-19 11:57 | P.NPEVAL ---
Patient History - Record/History Review Reason for Referral: The patient is a 87 year old right handed male status post TIA with expressive aphasia that subsequently resolved. The patient has a history of chronic alcohol abuse and has been confused since admission on 02/15/2018. He is in restraints. The family has refused medications such as seroquel to treat his agitation. He is referred for baseline neurobehavioral status examination to assess cognitive, behavioral and emotional aspects of the injury and to provide treatment recommendations. Medications Active Medications Acetaminophen (Tylenol) 650 mg PO Q4H PRN PRN Reason: TEMP > 100.4 Acetaminophen (Tylenol) 650 mg PO Q6H PRN PRN Reason: PAIN SCALE 1 TO 2 Hydrocodone Bitart/Acetaminophen ([place] 5/325) 1 tab PO Q6H PRN PRN Reason: PAIN 3-10 Al Hydroxide/Mg Hydroxide (Milk Of Magnesia Liq) 30 ml PO Q12H PRN PRN Reason: Mild constipation Bisacodyl (Dulcolax Supp) 10 mg RECTAL DAILY PRN PRN Reason: SEVERE CONSITIPATION Clopidogrel Bisulfate (Plavix) 75 mg PO DAILY [facility] Last Admin: 02/19/18 09:42 Dose: 75 mg Flumazenil (Romazecon Inj) 0.2 mg IV.PUSH Q1M PRN PRN Reason: OVERSEDATION Galantamine Hydrobromide (Razadyne) 4 mg PO BID [facility] Last Admin: 02/19/18 09:42 Dose: 4 mg Heparin Sodium (Porcine) (Heparin Inj) 5,000 units SQ Q12H [facility] Last Admin: 02/19/18 06:11 Dose: 5,000 units Sodium Chloride (Ns Inj) 1,000 mls @ 70 mls/hr IV.SIG .[id number] [facility] Last Admin: 02/19/18 03:57 Dose: Not Given Lactulose (Lactulose Liq) 30 ml PO DAILY PRN PRN Reason: SEVERE CONSITIPATION Latanoprost (Xalatan 0.005% Opth Drops) 1 drop EACH EYE [facility] Last Admin: 02/18/18 21:39 Dose: 1 drop Lorazepam (Ativan) 1 mg PO Q4H PRN PRN Reason: for CIWA 8-10 Last Admin: 02/15/18 01:30 Dose: 1 mg Lorazepam (Ativan) 2 mg PO Q2H PRN PRN Reason: for CIWA 11-14 Lorazepam (Ativan Inj) 2 mg IV.PUSH Q2H PRN PRN Reason: for CIWA 11-14 Lorazepam (Ativan Inj) 2 mg IV.PUSH Q15M PRN PRN Reason: for CIWA > 20 Lorazepam (Ativan Inj) 1 mg IV.PUSH Q4H PRN PRN Reason: for CIWA 8-10 Lorazepam (Ativan Inj) 2 mg IV.PUSH Q1H PRN PRN Reason: for CIWA 15-20 Multivitamins/Minerals (Ocuvite With Lutein) 1 tab PO DAILY [facility] Last Admin: 02/19/18 09:41 Dose: 1 tab Naloxone HCl (Narcan Inj) 0.4 mg IV.PUSH UNSCH PRN PRN Reason: SEE LABEL COMMENTS Nitroglycerin (Nitrostat Sl) 0.4 mg SL 5 TIMES A DAY PRN PRN Reason: CHEST PAIN Ondansetron HCl (Zofran Odt) 4 mg PO Q6H PRN PRN Reason: NAUSEA/VOMITING Pantoprazole Sodium (Protonix) 20 mg PO DAILY [facility] Last Admin: 02/19/18 09:41 Dose: 20 mg Patient Own Medication (Patient Own Medication) 0 each EACH EYE BID [facility] Last Admin: 02/19/18 09:44 Dose: 1 each Quetiapine Fumarate (Seroquel) 25 mg PO BID [facility] Last Admin: 02/19/18 09:41 Dose: 25 mg Sennosides (Senokot) 17.2 mg PO Q12H PRN PRN Reason: Moderate constipation Sodium Chloride (Ns Flush) 2 ml IV.FLUSH UNSCH PRN PRN Reason: FLUSH AFTER USING IV ACCESS Sodium Chloride (Ns Flush) 2 ml IV.FLUSH BID [facility] Last Admin: 02/19/18 09:41 Dose: Not Given Tamsulosin HCl (Flomax) 0.4 mg PO [facility] Last Admin: 02/18/18 21:16 Dose: 0.4 mg Thiamine HCl (Thiamine Inj) 100 mg IM DAILY [facility] Last Admin: 02/19/18 09:42 Dose: 100 mg Trazodone HCl (Desyrel) 50 mg PO [facility] Last Admin: 02/18/18 21:16 Dose: 50 mg Mental Status Assessment - Mental Status Orientation: unable to assess: Self, Place, Time, Situation Mental Status: Impaired: Thought processing, Language/interactions, Attention, Learning/memory, Problem-solving, Visuospatial/construction, Self-regulation, Other Absent: Hallucinations, Delusions Adjustment/Coping Assessment - Adjustment/Coping Adjustment/Coping: Not Assessed: Depression, Anxiety, Pain, Apathy, Awareness, Insight - Observation On examination, the patient was unable to be aroused. Nurse at bedside said that he was initially found wandering on the unit, but has been more compliant. Behavior - Behavior Agitation: Not assessed Treatment Engagement: No effort - Observation Behaviorally, the patient demonstrated no signs of agitation, impulsivity or disinhibition. However, he was sleeping, and he may have been lethargic from medication. There was no remarkable evidence of a formal thought disorder or psychosis. - Goals LTG Status: Deferred STG Status: Deferred - Team Members Team Members: Neuropsychologist Diagnosis/Discharge Plan - Diagnosis (1) Major neurocognitive disorder, due to vascular disease, with behavioral disturbance, mild Status: Acute (2) Alcohol abuse with alcohol-induced mental disorder Status: Acute Impression: This 87 year old man with history of cerebrovascular disease and alcohol abuse now presents with agitation/restlessness related to his multiple medical conditions. He is day 5 of potential alcohol withdrawal, and family requests that Seroquel not be used to facilitate an optimal therapeutic outcome. Suggestions include d/c'ing all benzos such as Ativan, as this may be contributing to his delirium. Given that there is an underlying neuropathological condition, consider starting Valproic Acid 250 BID to manage his agitation. Encourage normal sleep/wake cycles, which may include physician order for him to be OOB during the day (I note that he was in bed sleeping at 1045 when I came by). Finally, I will order the Agitated Behavior Scale in order to quantify his agitation and to utilize the resulting scores to facilitate a titration of medications to desired neurobehavioral outcome. Maximizing Acute Care Outcome: Suggestions include d/c'ing all benzos such as Ativan, as this may be contributing to his delirium. Given that there is an underlying neuropathological condition, consider starting Valproic Acid 250 BID to manage his agitation. Encourage normal sleep/wake cycles, which may include physician order for him to be OOB during the day (I note that he was in bed sleeping at 1045 when I came by). Finally, I will order the Agitated Behavior Scale in order to quantify his agitation and to utilize the resulting scores to facilitate a titration of medications to desired neurobehavioral outcome. At this point in the recovery process, the patient does not have cognitive capacity as the patient is unable to understand a situation and its likely consequences, nor is the patient able to manipulate information rationally. Cognitive capacity will be assessed throughout the recovery process. - Discharge Planning Anticipated Problems: Ongoing areas of concern will include behavioral impulsivity, lack of insight and judgment, which is expected to improve with time and treatment. Presently , the patient is encephalopathic and agitated. Treatment Plan: This clinician will continue to follow with you throughout the course of this patients acute care treatment, and I will be available to meet with the patient s family/support system to facilitate their understanding and the ongoing care of their family member. The goals of neuropsychological intervention shall be both educational and supportive to the family/support system as is deemed clinically appropriate. Thank you for the opportunity to assist in this patients care. Reece Craig, Ph.D., ABPP Board Certified in Clinical Neuropsychology [place] [employer] Professional Psychology [place] Licensed Psychologist #[id number]
--- NOTE | 2018-02-19 14:28 | P.PNIM ---
Subjective Interval history: The patient is very sleepy and lethargic, barely arousable. Significant other is at bedside. A febrile. Physical Exam Vital signs: Vital Signs 02/18/18 16:00 02/18/18 21:30 02/18/18 23:00 Temperature 97.8 F 98.1 F Pulse Rate 86 73 79 Respiratory Rate 17 19 Blood Pressure 127/62 168/88 H Pulse Oximetry 96 96 02/19/18 00:15 02/19/18 04:30 02/19/18 04:52 Temperature 98 F 97.8 F Pulse Rate 75 75 71 Respiratory Rate 18 20 Blood Pressure 150/80 H 148/88 H Pulse Oximetry 97 96 02/19/18 08:00 02/19/18 12:00 Temperature 98.1 F 98.3 F Pulse Rate 63 67 Respiratory Rate 17 17 Blood Pressure 116/64 120/60 Pulse Oximetry 97 96 Intake & Output 02/18/18 02/19/18 02/19/18 18:59 06:59 18:59 Intake Total 250 / 250 Output Total 500 / 500 Balance -250 / -250 Weight 84 kg Intake: Oral 250 / 250 Output: Urine 500 / 500 Stool 0 / 0 Other: # Incontinent Voids 2 # Bowel Movements 0 Narrative: - Constitutional nad, lethargic - Routine HEENT Exam Head: Present: normocephalic, atraumatic Eye: Present: EOMI, PERRL, normal accommodation - Routine Neck Exam Present: supple - Routine Respiratory Exam Present: CTA bilaterally - Routine Cardiovascular Exam Present: RRR, S1, S2 - Routine Abdominal Exam Present: soft, normoactive bowel sounds - Routine Neurological Exam Present: lethargic, barely arousable to stimulation - Routine Psychiatric Exam Present:unable to asses due to lethargy. Results - Labs CBC & Chem 7: 02/19/18 10:08 02/19/18 10:08 Laboratory Results - last 24 hr 02/19/18 02/19/18 10:08 10:08 WBC 4.6 RBC 3.89 L Hgb 12.5 L Hct 37.5 L MCV 96.6 MCH 32.1 MCHC 33.2 RDW 15.1 Plt Count 162 MPV 8.0 Neut % (Auto) 56.3 Lymph % (Auto) 27.1 [place] % (Auto) 15.0 H Eos % (Auto) 1.1 Baso % (Auto) 0.5 Neut # (Auto) 2.6 Lymph # (Auto) 1.2 [place] # (Auto) 0.7 Eos # (Auto) 0.0 Baso # (Auto) 0.0 WBC Differential . Differential Comment Auto diff final Sodium 141 Potassium 4.0 Chloride 106 Carbon Dioxide 22.4 Anion Gap 13 BUN 23 H Creatinine 0.98 Estimated GFR 72 L Random Glucose 89 Calcium 9.4 Phosphorus 3.6 Magnesium 2.5 Total Bilirubin 0.8 AST 27 ALT 34 Alkaline Phosphatase 97 Total Protein 7.8 Albumin 3.5 Assessment and Plan - Plan This is a 87-year-old male who was brought in as a stroke alert when he developed expressive aphasia which resolved after less than an hour. 1. TIA. Continue aspirin and Plavix. Neurology consulted. Reviewed echocardiogram which showed an EF of 60%. EEG mild diffuse beta slowing down otherwise unremarkable. Lipid profile reviewed -total cholesterol 96 and LDL cholesterol 48. Continue neuro checks and seizure precautions. 2. Dementia with hallucinations and confusion. Unclear etiology. The patient was seen by psychiatry on 02/14. As per psychiatry recommendations cognitive impairment likely possibly related to dementia related to alcohol misuse. Will consult neuropsychiatry. Small dose of Seroquel was recommended, however patient significant other refused the patient to have Seroquel. Patient also was administered Haldol and IV Ativan which made him very lethargic. The patient Seroquel was discontinued by prior physician following the patient. I had lengthy discussion with patient's significant other and patient's son. I recommended starting cervical again at a dose of 25 mg p.o. twice daily and see what the effects are. 02/18 Consult neuropsychology, will start the patient on high-dose IV thiamine and resume home galantamine. 02/19 appreciate neuropsychology recommendations. Neuropsychology recommends continuation of benzodiazepines. I will discontinue Seroquel and start the patient on valproic acid 250 minutes p.o. twice daily to control agitation. Dose of valproic acid should be held if the patient is still lethargic. 3. CAD status post stent Patient is chest pain-free. Troponin negative 1. Continue aspirin and Plavix. 4. History of symptomatic bradycardia status post pacemaker. Monitor on telemetry. No arrhythmias reported. EKG on admission and reviewed by me showed an atrial paced rhythm at a rate of 65 bpm. 5. Hyperlipidemia Lipid profile reviewed. Hyperlipidemia seems to be diet controlled as patient is not on statins as an outpatient. 6. DVT prophylaxis SCDs and heparin subcutaneous. Discharge Planning: Continue to monitor the medical floor. Patient is lethargic. Restraints as needed for safety.
[2018-02-20] MEDS: Latanoprost 0.005% Opth Drops 2.5 ML Bottle EACH EYE SCH (04:13)
[2018-02-20] MEDS: Heparin - SQ 10,000 UNITS/ML Vial SQ SCH ×2 (06:35→18:41)
--- NOTE | 2018-02-20 08:09 | P.PNNPSY ---
- Progress Notes/Response to Treatment Time with Patient: 15 minutes Premorbid Psychological Status: Premorbid Cognitive, Emotional and Behavioral Status: Tenuous. The patient has high school years of education and is retired from working. The patient has no prior psychiatric difficulties, as described above. Substance abuse history is significant for EtOH abuse in the past, but not recently. Behavioral Reactions of Patient and Family/Support System: Stable. The patient s family is experiencing ongoing issues of adjustment given the nature of the injury, and this aspect of recovery will require ongoing monitoring. Emotional/Behavioral Status of Patient and Family/Support System: Stable. Pertinent issues, if appropriate to this patients clinical care, are described in detail above. Maximizing Acute Care Outcome: Suggestions include d/c'ing all benzos such as Ativan, as this may be contributing to his delirium. Given that there is an underlying neuropathological condition, consider starting Valproic Acid 250 BID to manage his agitation. Encourage normal sleep/wake cycles, which may include physician order for him to be OOB during the day (I note that he was in bed sleeping at 1045 when I came by). Finally, I will order the Agitated Behavior Scale in order to quantify his agitation and to utilize the resulting scores to facilitate a titration of medications to desired neurobehavioral outcome. At this point in the recovery process, the patient does not have cognitive capacity as the patient is unable to understand a situation and its likely consequences, nor is the patient able to manipulate information rationally. Cognitive capacity will be assessed throughout the recovery process. Decision making capacity still not regained as of 02/20/2018. Anticipated Problems: Ongoing areas of concern will include behavioral impulsivity, lack of insight and judgment, which is expected to improve with time and treatment. Presently , the patient is encephalopathic and agitated. Treatment Plan: This clinician will continue to follow with you throughout the course of this patients acute care treatment, and I will be available to meet with the patient s family/support system to facilitate their understanding and the ongoing care of their family member. The goals of neuropsychological intervention shall be both educational and supportive to the family/support system as is deemed clinically appropriate. Disinhibition Score: 15.75 Aggression Score: 14.00 Lability Score: 14.00 Agitated Behavior Total Score: 15 Impression: This 87 year old man with history of cerebrovascular disease and prior history of alcohol abuse now presents with agitation/restlessness related to his multiple medical conditions. Further investigation indicates that he has not consumed alcohol in some time, and this potential alcohol issue is no longer an issue. Furthermore, it turns out that I actually know the patient and his fiancee from their inpatient rehabilitation stay several months ago. Suggestions include d/c'ing all benzos such as Ativan, as this may be contributing to his delirium. Given that there is an underlying neuropathological condition, consider starting Valproic Acid 250 BID to manage his agitation. Encourage normal sleep/wake cycles, which may include physician order for him to be OOB during the day (I note that he was in bed sleeping at 1045 when I came by). Finally, I will order the Agitated Behavior Scale in order to quantify his agitation and to utilize the resulting scores to facilitate a titration of medications to desired neurobehavioral outcome. Progress Note Narrative: Ongoing follow-up of patient. Turns out that I know this patient well from his prior inpatient rehabilitation stay. Medication changes noted, to include d/c of benzo's and Seroquel, and start of VPA 250 BID. Agitation is minimal at this point, with ABS of 15 (15.7,14,14), with significance anything above 21, with range of scale from 14 to 56. It was reported to me that any alcohol abuse is not an issue and has not been an issue for some time, which is a welcomed report. However, longstanding major neurocognitive disorder (formerly known as dementia) is a chronic issue. When I last saw him prior to his discharge from rehab, he was of a mild severity in terms of neurocognitive compromise, so his current stay remains a delma decline, and some level of delirium remains part of this clinical picture. Will discuss with nursing to encourage normal sleep/ wake cycles, perhaps with ensuring that he is OOB for some time during the day. Noted that recent EEG showed mild diffuse betal slowing. I will follow. Please feel free to call me on my cell at if any issues arise over the weekend. - Diagnosis (1) Major neurocognitive disorder, due to vascular disease, with behavioral disturbance, mild Status: Acute (2) Delirium due to another medical condition Status: Acute
[2018-02-20] MEDS: Vitamins A,C,E/Lutein/Minerals Tablet PO SCH (09:43)
[2018-02-20] MEDS: Pantoprazole Sodium 20 MG DR Tablet PO SCH (09:44)
[2018-02-20] MEDS: Sod Chloride 0.9% Inj 1,000 ML IV.SIG SCH (10:00)
[2018-02-20 12:07] LABS: Calcium 8.9 mg/dL (8.5-10.1); Potassium 4.3 meq/L (3.5-5.1)
--- NOTE | 2018-02-20 16:35 | P.PNIM ---
Subjective Interval history: Patient is more awake and alert and able to sustain a conversation. However still seems that he has episodes of intermittent confusion. The patient denies any chest pain or shortness of breath, fevers or chills. Physical Exam Vital signs: Vital Signs 02/19/18 20:00 02/19/18 20:45 02/20/18 00:00 Temperature 98 F 97.1 F L Pulse Rate 64 68 Respiratory Rate 20 19 19 Blood Pressure 136/65 125/89 Pulse Oximetry 96 98 02/20/18 03:20 02/20/18 08:00 02/20/18 11:28 Temperature 98.2 F 97.6 F 97.9 F Pulse Rate 61 71 62 Respiratory Rate 21 16 16 Blood Pressure 121/80 122/64 118/58 L Pulse Oximetry 97 94 L 97 02/20/18 15:48 Temperature 98.7 F Pulse Rate 72 Respiratory Rate 18 Blood Pressure 113/65 Pulse Oximetry 98 Intake & Output 02/19/18 02/20/18 02/20/18 18:59 06:59 18:59 Intake Total 570 / 570 Balance 570 / 570 Weight 84 kg Intake: Oral 570 / 570 Other: # Voids 2 # Incontinent Voids 4 Date of Last Bowel Movement 02/19/18 02/20/18 # Bowel Movements 1 1 # Incontinent Bowel Movements 1 Narrative: - Constitutional Patient is awake and alert, able to follow commands. NAD. - Routine HEENT Exam Head: Present: normocephalic, atraumatic Eye: Present: EOMI, PERRL, normal accommodation - Routine Neck Exam Present: supple - Routine Respiratory Exam Present: CTA bilaterally - Routine Cardiovascular Exam Present: RRR, S1, S2 - Routine Abdominal Exam Present: soft, normoactive bowel sounds - Routine Neurological Exam Present: Awake and alert, follows commands, cranial nerves II through XII grossly intact. - Routine Psychiatric Exam Present:Seems calm and cooperative. Intermittent periods of confusion. Results - Labs CBC & Chem 7: 02/19/18 10:08 02/20/18 10:42 Laboratory Results - last 24 hr 02/20/18 10:42 Sodium 141 Potassium 4.3 Chloride 105 Carbon Dioxide 27.0 Anion Gap 9 BUN 28 H Creatinine 1.14 Estimated GFR 61 L Random Glucose 85 Calcium 8.9 Assessment and Plan - Plan This is a 87-year-old male who was brought in as a stroke alert when he developed expressive aphasia which resolved after less than an hour. 1. TIA. Continue aspirin and Plavix. Neurology consulted. Reviewed echocardiogram which showed an EF of 60%. EEG mild diffuse beta slowing down otherwise unremarkable. Lipid profile reviewed -total cholesterol 96 and LDL cholesterol 48. Continue neuro checks and seizure precautions. 2. Dementia with hallucinations and confusion. Unclear etiology. The patient was seen by psychiatry on 02/14. As per psychiatry recommendations cognitive impairment likely possibly related to dementia related to alcohol misuse. Will consult neuropsychiatry. Small dose of Seroquel was recommended, however patient significant other refused the patient to have Seroquel. Patient also was administered Haldol and IV Ativan which made him very lethargic. The patient Seroquel was discontinued by prior physician following the patient. I had lengthy discussion with patient's significant other and patient's son. I recommended starting cervical again at a dose of 25 mg p.o. twice daily and see what the effects are. 02/18 Consult neuropsychology, will start the patient on high-dose IV thiamine and resume home galantamine. 02/19 appreciate neuropsychology recommendations. Neuropsychology recommends continuation of benzodiazepines. I will discontinue Seroquel and start the patient on valproic acid 250 minutes p.o. twice daily to control agitation. Dose of valproic acid should be held if the patient is still lethargic. 02/20 Patient is more awake and alert, still having intermittent episodes of confusion but mental status is much improved. I discussed the case with the patient's son who states they are planning to upon discharge transport is that back to [place] where they are planning to take care of him. Patient's significant other states that he does not want to go with his kids. At this point the patient still having intermittent confusion, I will reconsult psychiatry for further evaluation regarding physician making capacity. 3. CAD status post stent Patient is chest pain-free. Troponin negative 1. Continue aspirin and Plavix. 4. History of symptomatic bradycardia status post pacemaker. Monitor on telemetry. No arrhythmias reported. EKG on admission and reviewed by me showed an atrial paced rhythm at a rate of 65 bpm. 5. Hyperlipidemia Lipid profile reviewed. Hyperlipidemia seems to be diet controlled as patient is not on statins as an outpatient. 6. DVT prophylaxis SCDs and heparin subcutaneous. Discharge Planning: Continue to monitor and the medical floor. Patient is more awake and alert. Patient's son wants to take the patient back to [place] to take care of him. It appears that current significant other the patient has voiced to them that she cannot take care of the patient as well. Patient however states he does not want to go with their kids. Reconsult psychiatry for evaluation of medical decision-making capacity. If patient fails evaluation then the patient's son is the one making decisions for him. Please call the patient's son Mr. Torsten Reyna at the phone #[phone] so that they can plan on the discharge.
[2018-02-21] MEDS: Heparin - SQ 10,000 UNITS/ML Vial SQ SCH ×2 (06:13→17:34)
[2018-02-21] MEDS: Latanoprost 0.005% Opth Drops 2.5 ML Bottle EACH EYE SCH (06:16)
[2018-02-21] MEDS: Vitamins A,C,E/Lutein/Minerals Tablet PO SCH (08:06)
[2018-02-21] MEDS: Pantoprazole Sodium 20 MG DR Tablet PO SCH (08:06)
--- NOTE | 2018-02-21 11:32 | P.PNIM ---
Subjective Interval history: Patient seen with significant other at bedside. Behavior has been good. No weakness noted. Patient has been ambulating. Significant other states that she is #1 healthcare surrogate and patient's son is #2. Based on surgical see document they are not allowed to place him in a detention. The patient's son and the patient's significant other want to take the patient to [place] 2 days after discharge to stay with the son because the significant other can no longer care for him. Significant other is concerned that the patient will refuse to go to [place] after discharge. Reviewed with significant other and patient regarding neuropsychology recommendations that the patient lacks decision-making capacity. Physical Exam Vital signs: Vital Signs 02/20/18 15:48 02/20/18 20:40 02/21/18 01:02 Temperature 98.7 F 98 F Pulse Rate 72 83 77 Respiratory Rate 18 20 Blood Pressure 113/65 157/68 H Pulse Oximetry 98 95 02/21/18 04:00 02/21/18 08:00 Temperature 97.8 F 98 F Pulse Rate 73 73 Respiratory Rate 18 18 Blood Pressure 166/80 H 124/68 Pulse Oximetry 98 95 Intake & Output 02/20/18 02/21/18 02/21/18 18:59 06:59 18:59 Intake Total 720 / 720 Output Total 0 / 0 100 / 100 Balance 720 / 720 -100 / -100 Weight 180 lb 1.883 oz Intake: Oral 720 / 720 Output: Urine 100 / 100 Stool 0 / 0 Other: # Voids 4 2 # Incontinent Voids 0 Date of Last Bowel Movement 02/20/18 02/20/18 02/20/18 # Bowel Movements 1 1 # Incontinent Bowel Movements 1 Narrative: GENERAL: Well-developed well-nourished. In no acute distress. SKIN: Warm and dry. No lesions noted. HEENT: Normocephalic. Pupils equal and round. Mucous membranes pink and moist. CARDIOVASCULAR: Regular rate and rhythm. No murmur appreciated. RESPIRATORY: No accessory muscle use. Clear to auscultation. Breath sounds equal bilaterally. GASTROINTESTINAL: Abdomen soft, non-tender, nondistended. Bowel sounds x4. MUSCULOSKELETAL: No obvious deformities. No clubbing or cyanosis. No edema. NEUROLOGICAL: Awake and alert. Strength 5/5 in all 4 extremities. Normal speech. PSYCHIATRIC: Currently, mood and affect; insight and judgment poor. Results - Labs CBC & Chem 7: 02/19/18 10:08 02/20/18 10:42 Laboratory Results - last 24 hr 02/20/18 10:42 Sodium 141 Potassium 4.3 Chloride 105 Carbon Dioxide 27.0 Anion Gap 9 BUN 28 H Creatinine 1.14 Estimated GFR 61 L Random Glucose 85 Calcium 8.9 Assessment and Plan - Plan 87-year-old male who was brought in as a stroke alert when he developed expressive aphasia which resolved after less than an hour. 1. TIA. Continue aspirin and Plavix. Neurology was consulted consulted, discharge planning Echocardiogram which showed an EF of 60%. EEG mild diffuse beta slowing down otherwise unremarkable. Lipid profile w/- total cholesterol 96 and LDL cholesterol 48. Continue neuro checks and seizure precautions. 2. Dementia with hallucinations and confusion. Unclear etiology. The patient was seen by psychiatry on 02/14. As per psychiatry recommendations, cognitive impairment likely possibly related to dementia related to alcohol misuse. Will consult neuropsychiatry. Small dose of Seroquel was recommended, however patient significant other refused the patient to have Seroquel. Patient also was administered Haldol and IV Ativan which made him very lethargic. The patient Seroquel was discontinued by prior physician following the patient. 02/21 Currently on Depakote for behavior control. Neuropsychiatry evaluated the patient and does not believe that he has decision-making capacity. Essentially decision making capacity would fall to the significant other and the son. There is concern that the patient will have difficulties going to [place] 2 days after discharge, will asked psychiatry to reevaluate the patient to assist with medication recommendations for behavior control. 3. CAD status post stent Patient is chest pain-free. Troponin negative 1. Continue aspirin and Plavix. 4. History of symptomatic bradycardia status post pacemaker. Monitor on telemetry. No arrhythmias reported. 5. Hyperlipidemia Hyperlipidemia seems to be diet controlled as patient is not on statins as an outpatient. 6. DVT prophylaxis SCDs and heparin subcutaneous. Discussed Condition With: Patient with significant other bedside, case management, Dr. Aragon Discharge Planning: It seems that the patient's significant other and the patient's son who are healthcare surrogate's want the patient to go to stay with the patient's son in [place] to care for him because the patient's significant other can no longer care for him here. The patient had been refusing to go to [place], however the patient lacks decision-making capacity secondary to neurocognitive disorder and cannot refuse. We will ask psychiatry to assist with medications for behavioral management to help with the transition to [place]. Once patient's behaviors are stable, hopefully discharge in the next 1-2 days.
[2018-02-21] MEDS ORDERED: LORazepam 0.5 MG Tablet PO ONE (20:32)
[2018-02-22] MEDS: Latanoprost 0.005% Opth Drops 2.5 ML Bottle EACH EYE SCH ×2 (01:46→21:05)
[2018-02-22] MEDS: Heparin - SQ 10,000 UNITS/ML Vial SQ SCH ×2 (07:15→17:06)
[2018-02-22] MEDS: Pantoprazole Sodium 20 MG DR Tablet PO SCH (08:35)
[2018-02-22] MEDS: Vitamins A,C,E/Lutein/Minerals Tablet PO SCH (08:36)
--- NOTE | 2018-02-22 13:25 | P.PNIM ---
Subjective Interval history: No overnight events, no complaints, denies any chest pain or shortness of breath. Mental status is stable. Discussed with significant other. Physical Exam Vital signs: Vital Signs 02/21/18 16:00 02/21/18 17:49 02/21/18 20:00 Temperature 98.3 F 97.8 F Pulse Rate 63 61 77 Respiratory Rate 17 18 Blood Pressure 118/58 L 169/83 H Pulse Oximetry 100 95 02/22/18 00:00 02/22/18 04:00 02/22/18 08:00 Temperature 97.1 F L 97.9 F 98.3 F Pulse Rate 71 66 69 Respiratory Rate 18 18 18 Blood Pressure 172/84 H 132/78 143/69 H Pulse Oximetry 98 97 95 02/22/18 12:00 Temperature 98 F Pulse Rate 65 Respiratory Rate 18 Blood Pressure 112/58 L Pulse Oximetry 95 Intake & Output 02/21/18 02/22/18 02/22/18 18:59 06:59 18:59 Intake Total 240 / 240 Output Total 0 / 0 Balance 240 / 240 Weight 84.2 kg Intake: Oral 240 / 240 Output: Stool 0 / 0 Other: # Voids 2 4 # Incontinent Voids 0 Date of Last Bowel Movement 02/20/18 02/20/18 02/20/18 # Bowel Movements 1 # Incontinent Bowel Movements 1 Narrative: GENERAL: Not in distress. CARDIOVASCULAR: Regular rate and rhythm. No murmur appreciated. RESPIRATORY: No accessory muscle use. Clear to auscultation. Breath sounds equal bilaterally. GASTROINTESTINAL: Abdomen soft, non-tender, nondistended. Bowel sounds x4. MUSCULOSKELETAL: No obvious deformities. No clubbing or cyanosis. No edema. NEUROLOGICAL: Awake and alert, oriented to self but not to time. Strength 5/5 in all 4 extremities. Normal speech. PSYCHIATRIC: Currently, mood and affect; insight and judgment poor. Results - Labs CBC & Chem 7: 02/19/18 10:08 02/20/18 10:42 Assessment and Plan - Plan 87-year-old male who was brought in as a stroke alert when he developed expressive aphasia which resolved after less than an hour. 1. TIA. Continue aspirin and Plavix. Echocardiogram which showed an EF of 60%. EEG mild diffuse beta slowing down otherwise unremarkable. Lipid profile w/- total cholesterol 96 and LDL cholesterol 48. Continue neuro checks and seizure precautions. 2. Dementia with hallucinations and confusion. Unclear etiology. The patient was seen by psychiatry on 02/14. As per psychiatry recommendations, cognitive impairment likely possibly related to dementia related to alcohol misuse. Awaiting consult from neuropsychiatry. Small dose of Seroquel was recommended, however patient significant other refused the patient to have Seroquel. Patient also was administered Haldol and IV Ativan which made him very lethargic. The patient Seroquel was discontinued by prior physician following the patient. - Currently on Depakote for behavior control. Neuropsychiatry evaluated the patient and does not believe that he has decision-making capacity. Essentially decision making would fall to the significant other and the son. There is concern that the patient will have difficulties going to [place] 2 days after discharge, consulted psychiatry to reevaluate the patient to assist with medication recommendations for behavior control. 3. CAD status post stent Patient is chest pain-free. Troponin negative 1. Continue aspirin and Plavix. 4. History of symptomatic bradycardia status post pacemaker. Monitor on telemetry. No arrhythmias reported. 5. Hyperlipidemia Hyperlipidemia seems to be diet controlled as patient is not on statins as an outpatient. 6. DVT prophylaxis SCDs and heparin subcutaneous. Discharge Planning: It seems that the patient's significant other and the patient's son who are healthcare surrogate's want the patient to go to stay with the patient's son in [place] to care for him because the patient's significant other can no longer care for him here. The patient had been refusing to go to [place], however the patient lacks decision-making capacity secondary to neurocognitive disorder and cannot refuse. We asked psychiatry to assist with medications for behavioral management to help with the transition to [place]. The plan is to discharge the patient on Friday. Patient's sons are arriving in town tomorrow to continuous pickling line pickler helper his stuff from significant other's place. They will continuous pickling line pickler helper the patient on Friday and bring the patient to [place]. Patient' s significant other is agreeable.
[2018-02-22] MEDS: Sod Chloride 0.9% Inj 1,000 ML IV.SIG SCH (20:56)
[2018-02-23] MEDS: Heparin - SQ 10,000 UNITS/ML Vial SQ SCH ×2 (06:54→18:09)
[2018-02-23] MEDS: Pantoprazole Sodium 20 MG DR Tablet PO SCH (08:33)
[2018-02-23] MEDS: Vitamins A,C,E/Lutein/Minerals Tablet PO SCH (08:33)
--- NOTE | 2018-02-23 11:19 | P.PNIM ---
Subjective Interval history: Follow up TIA, dementia, delirium. Patient seen and examined, sitting in chair in nad. No acute events overnight. Is having trouble sleeping. No pain. Eating well, no abd pain, n/v/d. Positive BM today. Plan for DC tomorrow. Dr. Craig in to see patient today sometime. Physical Exam Vital signs: Vital Signs 02/22/18 12:00 02/22/18 16:00 02/22/18 20:00 Temperature 98 F 98.6 F 98.0 F Pulse Rate 65 67 74 Respiratory Rate 18 18 18 Blood Pressure 112/58 L 119/59 L 118/59 L Pulse Oximetry 95 98 02/23/18 00:00 02/23/18 00:13 02/23/18 04:00 Temperature 98.8 F 99.8 F H Pulse Rate 70 65 65 Respiratory Rate 19 19 Blood Pressure 138/69 132/63 Pulse Oximetry 96 95 02/23/18 08:00 Temperature 98.6 F Pulse Rate 61 Respiratory Rate 18 Blood Pressure 107/57 L Pulse Oximetry 99 Intake & Output 02/22/18 02/23/18 02/23/18 18:59 06:59 18:59 Intake Total 240 / 240 Output Total 0 / 0 Balance 240 / 240 Weight 81.9 kg Intake: Oral 240 / 240 Output: Stool 0 / 0 Other: # Voids 2 4 # Incontinent Voids 0 Date of Last Bowel Movement 02/20/18 02/20/18 - Constitutional no acute distress - Routine HEENT Exam Head: Present: normocephalic Eye: Present: EOMI ENT: Present: mucous membranes moist - Routine Neck Exam Present: supple - Routine Respiratory Exam Present: accessory muscle use - Routine Abdominal Exam Present: soft - Routine Skin Exam Present: intact - Routine Neurological Exam Present: alert - Detailed Neurological Exam: Coma Scale Eye Opening: Spontaneous Motor Response: Obey commands Results - Labs CBC & Chem 7: 02/19/18 10:08 02/20/18 10:42 Assessment and Plan - Assessment (1) Dementia Code(s): F03.90 - Unspecified dementia without behavioral disturbance Status: Acute (2) Hallucinations Code(s): R44.3 - Hallucinations, unspecified Status: Acute (3) TIA (transient ischemic attack) Code(s): G45.9 - Transient cerebral ischemic attack, unspecified Status: Acute (4) Insomnia Code(s): G47.00 - Insomnia, unspecified Status: Acute (5) Major neurocognitive disorder, due to vascular disease, with behavioral disturbance, mild Code(s): F01.51 - Vascular dementia with behavioral disturbance Status: Acute (6) Delirium due to another medical condition Code(s): F05 - Delirium due to known physiological condition Status: Acute - Plan 87-year-old male who was brought in as a stroke alert when he developed expressive aphasia which resolved after less than an hour. Transient ischemic attack - Continue aspirin and Plavix. - Echocardiogram which showed an EF of 60%. - EEG mild diffuse beta slowing down otherwise unremarkable. - Lipid profile w/- total cholesterol 96 and LDL cholesterol 48. - Continue neuro checks and seizure precautions. Dementia with hallucinations and confusion - Unclear etiology. The patient was seen by psychiatry on 02/14. - As per psychiatry recommendations, cognitive impairment likely possibly related to dementia related to alcohol misuse. - Neuropsychiatry has seen patient, appreciate input and recommendations. Does not believe that he has decision-making capacity. Essentially decision making would fall to the significant other and the son. - Continued on VPA 250 mg BID for behavior control. Longstanding major neurocognitive disorder is a chronic issue. Encouraged normal sleep/wake cycles. - Recent EEG showed mild diffuse betal slowing. - Supportive care. CAD status post stent - Patient is chest pain-free. Troponin negative. - Continue aspirin and Plavix. History of symptomatic bradycardia status post pacemaker. - Monitor on telemetry. - No arrhythmias reported. Hyperlipidemia - Hyperlipidemia seems to be diet controlled as patient is not on statins as an outpatient. DVT prophylaxis: SCDs and heparin subcutaneous. Discharge Planning: It seems that the patient's significant other and the patient's son who are healthcare surrogate's want the patient to go to stay with the patient's son in [place] to care for him because the patient's significant other can no longer care for him here. The patient had been refusing to go to [place], however the patient lacks decision-making capacity secondary to neurocognitive disorder and cannot refuse. We asked psychiatry to assist with medications for behavioral management to help with the transition to [place]. The plan is to discharge the patient on Friday. Patient's sons are arriving in town tomorrow to pickling operator his stuff from significant other's place. They will pickling operator the patient on Friday and bring the patient to [place]. Patient' s significant other is agreeable.
--- NOTE | 2018-02-23 15:27 | P.PNNPSY ---
- Cognitive Moderate: Cognitive, Attention/concentration, Confused/orientation, Insight/ awareness, Judgment/problem solving, Memory - Psychosocial Mild: Psychosocial, Family/other adjustment, Realistic expectation, Severe: Self -esteem/confidence - Progress Notes/Response to Treatment Contents of Sessions: Adjustment Time with Patient: 15 minutes Premorbid Psychological Status: Premorbid Cognitive, Emotional and Behavioral Status: Tenuous. The patient has high school years of education and is retired from working. The patient has no prior psychiatric difficulties, as described above. Substance abuse history is significant for EtOH abuse in the past, but not recently. Behavioral Reactions of Patient and Family/Support System: Stable. The patient s family is experiencing ongoing issues of adjustment given the nature of the injury, and this aspect of recovery will require ongoing monitoring. Emotional/Behavioral Status of Patient and Family/Support System: Stable. Pertinent issues, if appropriate to this patients clinical care, are described in detail above. Maximizing Acute Care Outcome: Suggestions include d/c'ing all benzos such as Ativan, as this may be contributing to his delirium, which has been done and he is no longer delirious , although an underlying neurocognitive disorder is now more appreciated. Encourage normal sleep/wake cycles, which may include physician order for him to be OOB during the day. The Agitated Behavior Scale was employed to document agitation, and he is no longer agitated. At this point in the recovery process , the patient does not have cognitive capacity as the patient is unable to understand a situation and its likely consequences, nor is the patient able to manipulate information rationally. Cognitive capacity will be assessed throughout the recovery process. Decision making capacity still not regained as of 02/23/2018. Anticipated Problems: Ongoing areas of concern will include behavioral impulsivity, lack of insight and judgment, which is expected to improve with time and treatment. Presently , the patient is improved from an encephalopathic standpoint, although he remains oriented only to person, and he is no longer agitated. Treatment Plan: This clinician will continue to follow with you throughout the course of this patients acute care treatment, and I will be available to meet with the patient s family/support system to facilitate their understanding and the ongoing care of their family member. The goals of neuropsychological intervention shall be both educational and supportive to the family/support system as is deemed clinically appropriate. Disinhibition Score: 14.00 Aggression Score: 14.00 Lability Score: 14.00 Agitated Behavior Total Score: 14 Impression: This 87 year old man with history of cerebrovascular disease and prior history of alcohol abuse now presents with agitation/restlessness related to his multiple medical conditions. Further investigation indicates that he has not consumed alcohol in some time, and this potential alcohol issue is no longer an issue. Furthermore, it turns out that I actually know the patient and his fiancee from their inpatient rehabilitation stay several months ago. Suggestions include d/c'ing all benzos such as Ativan, as this may be contributing to his delirium. Delirium is now cleared. Given that there is an underlying neuropathological condition, consider starting Valproic Acid 250 BID to manage his agitation, which has facilitated his agitation and this is no longer an issue. Progress Note Narrative: Ongoing follow-up of patient seen in his hospital room along with his fiancee. The patient is improved from an encephalopathic standpoint, but the underlying neurocognitive disorder is more easily appreciated. He continues to lack decision making capacity in my clinical opinion. His family are to arrive tomorrow to take him back to [place] to live with them. Until then, I will follow. - Diagnosis (1) Major neurocognitive disorder, due to vascular disease, with behavioral disturbance, mild Status: Acute (2) Delirium due to another medical condition Status: Resolved
[2018-02-24] MEDS: Latanoprost 0.005% Opth Drops 2.5 ML Bottle EACH EYE SCH (04:26)
[2018-02-24] MEDS: Pantoprazole Sodium 20 MG DR Tablet PO SCH (09:29)
[2018-02-24] MEDS: Heparin - SQ 10,000 UNITS/ML Vial SQ SCH (09:29)
[2018-02-24] MEDS: Vitamins A,C,E/Lutein/Minerals Tablet PO SCH (09:29)
--- NOTE | 2018-02-24 12:31 | P.DS ---
Date of admission: 02/11/18 11:40 Primary care physician: UNKNOWN Brief History from admission: Mr. Reyna is admitted secondary to TIA, see H&P. DS: Medications - Discharge Medications Prescriptions: clopidogrel [Plavix] 75 mg PO DAILY #30 tab DS: Summary Hospital Course: Mr. Reyna is an 87-year-old male. He was admitted secondary to strokelike symptoms which correlated with a TIA. No residual symptoms for the remainder of his stay. He has dementia at baseline. He was deemed not able to take care of himself at this point in time. Family is from out of state and has arrived to take the patient home today. Patient is discharged today medically stable and clear with medication changes as listed below. - Time Spent with Patient Total time spent providing and/or coordinating discharge services: Exam Vital signs: Vital Signs 02/23/18 13:26 02/23/18 14:40 02/23/18 16:35 Temperature 98.1 F Pulse Rate 62 59 L 80 Respiratory Rate 17 Blood Pressure 134/68 Pulse Oximetry 98 02/23/18 17:01 02/23/18 19:45 02/23/18 20:00 Temperature 98.2 F Pulse Rate 65 84 71 Respiratory Rate 20 Blood Pressure 162/74 H Pulse Oximetry 97 02/24/18 00:30 02/24/18 06:00 02/24/18 08:00 Temperature 98.8 F 98 F 98.4 F Pulse Rate 68 80 67 Respiratory Rate 18 17 18 Blood Pressure 156/75 H 146/70 H 118/56 L Pulse Oximetry 96 95 99 Intake & Output 02/23/18 02/24/18 02/24/18 18:59 06:59 18:59 Intake Total 875 / 875 Balance 875 / 875 Weight 82 kg Intake: Oral 875 / 875 Other: # Voids 1 Date of Last Bowel Movement 02/23/18 02/23/18 # Bowel Movements 0 Results Procedures completed during hospitalization: None - Impressions ITS Impressions Head CT 02/16/18 00:00 CONCLUSION: Atrophy, , stable in the interval. Otherwise negative for an acute process. Madhu Winter MD FACR Discharge Plan - Discharge Disposition Patient Disposition: 01 Discharge Home - Discharge Condition Condition: Stable - Discharge Order Discharge Orders: Discharge Order (Routine); Ordered 02/24/18 Ordered By: Brad Barney - Discharge Details Anticipated Discharge Date: 02/25/18 - Physicians Team Primary Care Provider: UNKNOWN, Attending Provider: Brad Barney Other Providers: Kamilah Zhang MD, R1 ; Jasmin Moore MD ; Luis Krishnan MD ; Reece Craig, PhD ; Alexis Melissa MD - Rxs /Orders / Referrals /Forms Prescriptions: New clopidogrel [Plavix] 75 mg Tablet 75 mg PO DAILY Qty: 30 RF: 0 Continue aspirin 81 mg Tablet,Delayed Release (Dr/Ec) 81 mg PO DAILY bimatoprost 0.01 % Drops 1 drp OPHTHALMIC (EYE) HS brinzolamide 1 % Drops,Suspension 1 drp ophthalmic (eye) BID flaxseed oil 1,000 mg Capsule 1 cap PO DAILY galantamine 4 mg Tablet 4 mg PO BID hydrocodone-acetaminophen 5-325 mg Tablet 1 tab PO Q6H PRN (Reason: Pain) multivitamin Tablet 1 tab PO DAILY nitroglycerin [Nitrostat] 0.4 mg Tablet, Sublingual 0.4 mg SUBLINGUAL DIRECTED PRN (Reason: Chest Pain) omeprazole 20 mg Tablet,Delayed Release (Dr/Ec) 20 mg PO DAILY tamsulosin 0.4 mg Capsule,Extended Release 24hr 0.4 mg PO HS Discontinued temazepam 30 mg Capsule 30 mg PO HS PRN (Reason: Insomnia) Referrals: UNKNOWN, [Primary Care Provider] - See Instructions - Post Discharge Care Plan Care Plan Goals: Your Health Problems: Goals to Promote Your Health: * To prevent worsening of your condition * To maintain your health at the optimal level Directions to Meet Your Goals: * Take your medications as prescribed * Follow your dietary instruction * Follow activity as directed * Keep your appointments as scheduled * Take your immunizations and boosters as scheduled * If your symptoms worsen call your PCP * If no PCP go to Urgent Care or Emergency Room Smoking is dangerous to your health. Avoid second hand smoke. You may reach the 24-hour crisis hotline for domestic abuse at .
== END 2018-02-24 12:04 | disposition home or self-care (01) ==
LOC: N05 11:40
PROVIDERS: ADMIT Hospitalist; ATTEND Hospitalist